=== PATIENT | male | born 1945 | race Caucasian/White ===

== ENCOUNTER 2017-08-30 06:26 | Day surgery (SDC) | payer MEDICARE ==
[2017-08-27 16:08] VITALS: BMI 31.1
--- NOTE | 2017-08-29 09:23 | HP ---
HISTORY AND PHYSICAL CHIEF COMPLAINT: Right shoulder pain. HISTORY OF PRESENT ILLNESS: The patient is a 72-year-old, left-hand dominant, retired gentleman who presents with progressive right shoulder pain, worsening over the past 6 months. He is having pain with overhead use and at night. He has tried injections, therapy, and medications with only partial temporary relief. He notes the pain limits his normal function and activities. PAST MEDICAL HISTORY: Significant for hypertension, arthritis, reflux disease, hypercholesterolemia. PAST SURGICAL HISTORY: Significant for left rotator cuff repair in addition to hernia repair. CURRENT MEDICATIONS: 1. Mobic. 2. Pravastatin. 3. Carvedilol. 4. Amlodipine. 5. Aspirin. 6. Hydrochlorothiazide. 7. Losartan. 8. Primidone. ALLERGIES: He denies drug allergies. FAMILY HISTORY: Negative. SOCIAL HISTORY: Negative for current tobacco or alcohol use. REVIEW OF SYSTEMS: Sixteen-point review of systems otherwise reviewed and is noncontributory. PHYSICAL EXAMINATION: On examination, the patient is approximately 6 feet tall, 225 pounds of endomorphic habitus. HEENT exam is nonfocal. Neck is supple. On examination of his right shoulder, he is tender about the anterior subacromial space. He has moderate subacromial crepitus. Active range of motion forward elevation 150 degrees, external rotation with arm to side 65 degrees, internal rotation to T11. Motor strength is 5/5 for abduction and external rotation. Impingement test, Neer test, and Speed test are positive. His distal neurovascular exam otherwise appears intact in the right upper extremity. MRI report from 06/14/2017 of the right shoulder shows a partial-thickness articular surface tear of the supraspinatus tendon. There is also significant bicipital tenosynovitis. IMPRESSION: 1. Right shoulder impingement with partial thickness rotator cuff tear. 2. Right shoulder bicipital tendinitis. RECOMMENDATIONS: I talked to the patient at length regarding his treatment options. At this point, he remains quite symptomatic despite conservative measures. After thorough discussion, he opts to proceed with surgery. We will plan to proceed with arthroscopic evaluation with probable subacromial decompression, rotator cuff debridement versus repair, and possible biceps tenotomy. We will also consider distal clavicular resection. We will likely perform that as an outpatient procedure. Risks and benefits were discussed at length in layman's terms. MMODL / IJN: [id number] /
[~2017-08-30 06:26] MED LIST: DEXAMETHASONE SOD PHOSPHATE 10 MG/ML 1 ML VIAL IV ONE; LACTATED RINGERS 1,000 ML IV SCH; MIDAZOLAM 2 MG/2 ML VIAL IV PRN; MORPHINE SULFATE 4 MG/ML SYRINGE IV PRN; ONDANSETRON 4 MG/2 ML VIAL IVP ONE; ceFAZolin IN SWFI 2 GM/20 ML SYRINGE IVP ONE
[2017-08-30] MEDS ORDERED: LIDOCAINE 1% 20 ML VIAL (10MG/ML) FOR IV START INTRADERMA ONE (07:22)
[2017-08-30] MEDS ORDERED: MIDAZOLAM 2 MG/2 ML VIAL ONE (08:00)
[2017-08-30] MEDS ORDERED: SUCCINYLCHOLINE CHLORIDE 100 MG/5 ML SYR IV ONE (08:00)
[2017-08-30] MEDS ORDERED: EPINEPHrine (PF) 1 ML in SODIUM CHLORIDE 0.9% IRRIGATIO 3,000 ML IRRIGATION ONE ×8 (08:00)
[2017-08-30] MEDS ORDERED: ROPIVACAINE 5 MG/ML 30 ML VIAL ONE (08:00)
[2017-08-30] MEDS ORDERED: PROPOFOL 10 MG/ML 20 ML VIAL IV ONE (08:00)
[2017-08-30] MEDS ORDERED: LIDOCAINE 1% INJ 10MG/ML (20 ML MDV) ONE (08:00)
[2017-08-30] MEDS ORDERED: PHENYLEPHRINE-0.9% NACL SYG 1 MG/10 ML SYRINGE ONE (08:00)
[2017-08-30] MEDS ORDERED: ePHEDrine SULFATE/0.9% NACL/PF 50 MG/5 ML SYRINGE IV ONE (08:00)
[2017-08-30] MEDS ORDERED: fentaNYL (PF) 50 MCG/ML 2 ML AMP ONE (08:00)
[2017-08-30] MEDS ORDERED: LIDOCAINE 2%-EPI 1:100,000 20 ML VIAL ONE (08:00)
[2017-08-30] MEDS ORDERED: LACTATED RINGERS 1,000 ML IV ONE (09:25)
[2017-08-30 09:35] VITALS: TEMP 97.4
--- NOTE | 2017-08-30 09:36 | P.OP ---
Date of Procedure: 08/30/17 Preoperative Diagnosis: Right shoulder symptomatic rotator cuff tear Postoperative Diagnosis: 1.5 cm rotator cuff tear/high-grade partial-thickness tear long head of biceps/ grade 2 chondral injury posterior central humeral head/acromioclavicular joint osteoarthrosis Procedure(s) Performed: Right shoulder arthroscopic subacromial decompression/distal clavicular resection/biceps tenotomy/humeral head chondroplasty/rotator cuff repair Implants: Arthrex 4.75 mm were swivel lock anchor 1, 5.5 mm swivel lock anchor 1 Anesthesia: ANTONELLAA Surgeon: Americo Akers [place] Clerk #1: Kenneth Cardoza Estimated Blood Loss (ml): 10 Pathology: none sent Condition: stable Disposition: PACU Indications for Procedure: The patient is a 72-year-old male who presents with progressive right shoulder pain after previous injury despite conservative measures. A discussion of the risks and benefits of operative intervention versus continued conservative measures was made with the patient. He opted to proceed with surgery. Operative risks to include infection, neurovascular injury, development of blood clots, possible tendon rerupture, possible postoperative stiffness and need for subsequent procedures was discussed. Informed consent was obtained. Operative Findings: As below Description of Procedure: The patient was brought to the operating room, and after induction of general anesthesia was placed in a beachchair position. The bony prominences were appropriately padded. I examined the right shoulder. There was no gross block to passive motion. There was no gross clinical humeral instability. The right upper extremity was prepped and draped in a normal fashion. The bony outlines of the acromion, distal clavicle, and coracoid process were outlined with a skin marker. The glenohumeral joint was inflated with 50 mL of saline utilizing a spinal needle from posterior approach. A posterior portal was made through a 5 mm skin incision 1 cm medial and inferior to the posterior lateral border the acromion. A blunt trocar was used to easily into the joint. Diagnostic arthroscopy arthroscopy was performed. An anterior portal was made in the joint above the subscapularis just lateral to the coracoid process. The subscapularis tendon appear to be intact. The anterior labrum was intact. There was significant hyperemia and partial thickness tearing of the intra- articular portion of the long head of the biceps. It was elected to proceed with tenotomy at this point. The was released from the superior labrum with electrocautery and lateral retract to the bicipital groove. A grade 2 chondral injury was noted involving the central posterior portion of the humeral head measuring 6 x 7 mm. A loose chondral flap was debrided back to stable base with a motorized shaver. The posterior labrum was intact. The inferior recess was inspected. The rotator cuff was inspected on the articular surface. A high -grade partial-thickness tear involving the anterior aspect of the supraspinatus tendon was noted. This was debrided with a motorized shaver. This was converted to a full-thickness tear. The posterior portion the cuff appeared to be intact. The arthroscope was then placed into the subacromial space. A lateral portal was made through a 5 mm skin incision 2 cm inferior to the anterior lateral border of the acromion. The soft tissue on the undersurface the acromion was debrided with a motorized shaver and with electrocautery clearly defining the anterior medial and lateral borders as well as the distal clavicle. An anterior inferior acromioplasty was performed with a motorized craig starting anterolateral, then extending this posteriorly, then extending this medially. I was able to convert to a flat acromion. This was verified from the posterior and lateral viewing portals. The coracoacromial ligament was detached from the anterior acromion with electrocautery. The distal 5 mm of the clavicle was resected with a motorized craig. Attention was then paid towards the rotator cuff. The 1.5 cm supraspinatus tear was noted with minimal retraction. This is easily mobilized back to the greater tuberosity. Greater tuberosity was lightly decorticated with a motorized craig down to a bleeding bony surface. An accessory superior lateral portals made through a 5 mm skin incision just off the lateral edge of the acromion. A starting hole was made with the appropriate all and a 4.75 mm swivel lock anchor preloaded with #2 fiber tape was placed. Good purchase was obtained. The #2 fiber tape was then passed through the rotator cuff utilizing a scorpion suture passer. The 2 limbs were then brought laterally to create a lateral row and a 5.5 mm swivel lock anchor was inserted. The rotator cuff was appropriately tensioned. Final arthroscopic view showed adequate compression of the footprint and repair. The arthroscope was then removed. The portals were closed with simple nylon suture. A sterile dressing was applied in addition to an abductor brace. The patient was awoken from general anesthesia and transferred to recovery room in good condition. Blood loss was estimated at 10 mL. No complications were incurred. Sponge and needle counts were correct at the end of the case.
[2017-08-30 09:41] VITALS: RESP 16
[2017-08-30] MEDS ORDERED: HYDROmorphone 0.5 MG/0.5 ML SYRINGE IVP ONE (09:52)
[2017-08-30] MEDS ORDERED: HYDROcodone/APAP 5-325MG 1 EACH TAB PO ONE (10:42)
[2017-08-30 11:34] VITALS: BP 139/68; PULSE 77
== END 2017-08-30 12:16 | disposition home or self-care (01) ==
LOC: OR 06:26
PROVIDERS: ATTEND Orthopaedic Surgery
DX: M75.101 Unspecified rotator cuff tear or rupture of right shoulder, not specified as traumatic (principal); S46.111A Strain of muscle, fascia and tendon of long head of biceps, right arm, initial encounter; X58.XXXA Exposure to other specified factors, initial encounter; M24.111 Other articular cartilage disorders, right shoulder; M15.9 Polyosteoarthritis, unspecified; M75.41 Impingement syndrome of right shoulder; M75.21 Bicipital tendinitis, right shoulder; I10 Essential (primary) hypertension; E78.00 Pure hypercholesterolemia, unspecified; E78.5 Hyperlipidemia, unspecified; R73.9 Hyperglycemia, unspecified; R25.1 Tremor, unspecified; K21.9 Gastro-esophageal reflux disease without esophagitis; N40.0 Benign prostatic hyperplasia without lower urinary tract symptoms; R00.1 Bradycardia, unspecified; R60.9 Edema, unspecified; Z79.82 Long term (current) use of aspirin; Z79.1 Long term (current) use of non-steroidal anti-inflammatories (NSAID); Z79.899 Other long term (current) drug therapy; Z87.891 Personal history of nicotine dependence
CPT/HCPCS: 64415; 84132; 29827; 29826; 29824; C1713 ×3; J2250; J1100; J2405; J0171; J2001; J3010; J2795; J2370; J0330; J2704; J1170; J0690

== ENCOUNTER → 2018-01-23 | Outpatient (CLI) | payer MEDICARE ==
--- NOTE | 2018-01-23 16:29 | MR ---
EXAMINATION TYPE: MR lumbar spine wo con DATE OF EXAM: 01/23/2018 COMPARISON: Plain film 05/25/2015 HISTORY: Lower Back Pain, Pain in Left Leg TECHNIQUE: Multiplanar, multisequence images of the lumbar spine were acquired. L1-L2: Facet arthropathy encroaches on the lateral recesses. No significant foraminal encroachment or central stenosis. Broad-based posterior disc bulge causes mild anterior mass effect on the thecal sa c. L2-L3: Posterior broad-based disc bulge causes anterior mass effect on the thecal sac. Facet arthropa thy with hypertrophy ligamentum flavum encroaches on the lateral recesses. Only minimal central canal stenosis. No significant foraminal encroachment. L3-L4: Posterior broad-based disc bulge causes anterior mass effect on the thecal sac. Facet arthropa thy with hypertrophy ligamentum flavum encroaches on the lateral recesses. No significant foraminal e ncroachment or central stenosis. L4-L5: Listhesis contributes with facet arthropathy and hypertrophy ligamentum flavum, minimal fast food cook ior broad-based disc bulge to cause a trefoil appearance of the thecal sac and some encroachment on t he foramina. L5-S1: Small posterior disc bulge may contact the proximal S1 nerve roots. No significant central jordana nosis or foraminal encroachment. There is mild facet arthropathy. Lumbar segments are intact. No paraspinal masses are identified. Conus medullaris has a normal appe arance. Minimal anterolisthesis grade 1 L4-5. There is multilevel endplate marrow signal change with spondylosis, there is loss of disc height and signal especially L4-5, L2-3 greater than L3-4. Tarlov cyst noted over the sacrum. IMPRESSION: Multilevel degenerative disc disease, facet arthropathy, there is a listhesis L4-5 as described.
== END | disposition home or self-care (01) ==
LOC: RADMRIMAIN 15:11
PROVIDERS: ATTEND Physical Medicine & Rehabilitation
DX: M51.27 Other intervertebral disc displacement, lumbosacral region (principal); M43.16 Spondylolisthesis, lumbar region; M51.36 Other intervertebral disc degeneration, lumbar region; M47.816 Spondylosis without myelopathy or radiculopathy, lumbar region; M46.97 Unspecified inflammatory spondylopathy, lumbosacral region
CPT/HCPCS: 72148

== ENCOUNTER 2020-07-25 10:48 | Day surgery (SDC) | payer MEDICARE ==
[2020-07-20 11:37] VITALS: BMI 29.8
[~2020-07-25 10:48] MED LIST changes: -DEXAMETHASONE SOD PHOSPHATE 10 MG/ML 1 ML VIAL IV ONE; +LIDOCAINE 1% (10MG/ML) FOR IV START INTRADERMA PRN; -MIDAZOLAM 2 MG/2 ML VIAL IV PRN; -MORPHINE SULFATE 4 MG/ML SYRINGE IV PRN; -ONDANSETRON 4 MG/2 ML VIAL IVP ONE; -ceFAZolin IN SWFI 2 GM/20 ML SYRINGE IVP ONE
[2020-07-25 11:14] VITALS: RESP 16; TEMP 98.5
[2020-07-25] MEDS ORDERED: fentaNYL (PF) 50 MCG/ML 2 ML AMP ONE (12:00)
[2020-07-25] MEDS ORDERED: PROPOFOL 10 MG/ML 20 ML VIAL IV ONE (12:00)
[2020-07-25] MEDS ORDERED: MIDAZOLAM 2 MG/2 ML VIAL ONE (12:00)
[2020-07-25 12:55] LABS: Anisocytosis Slight; HGB 13.1 gm/dL (13.0-17.5); Hypochromasia Slight; MCHC 31.9 g/dL (31.0-37.0); MCV 78.4 fL (80.0-100.0); Mean Platelet Volume 9.6; Microcytosis Slight; Platelet Count 694 k/uL (150-450); RBC 5.23 m/uL (4.30-5.90); RDW 16.1 % (11.5-15.5); Reticulocyte % 1.3 % (0.5-2.0); WBC 13.6 k/uL (3.8-10.6)
[2020-07-25 13:12] VITALS: BP 125/64; PULSE 58
[2020-07-25 13:59] LABS: Basophils # (M) 0.54 k/uL (0-0.2); Eosinophils # (M) 1.36 k/uL (0-0.7); Lymphocytes # (M) 3.13 k/uL (1.0-4.8); Monocytes # (M) 0.68 k/uL (0-1.0); Neutrophils # (M) 7.89 k/uL (1.3-7.7); Neutrophils % (M) 58 %; Nucleated Red Blood Cells 0 /100 WBC (0-0); Total Cells Counted 100
[2020-07-25 14:00] LABS: Large Platelets Present; Toxic Granulation Present
--- NOTE | 2020-07-25 15:22 | OP ---
OPERATIVE REPORT DATE OF SERVICE: 07/25/2020 PROCEDURE: Bone marrow aspirate and biopsy. INDICATION: Suspect polycythemia vera. PROCEDURE DESCRIPTION: After obtaining consent from the patient, the procedure was performed in the endoscopy suite under general anesthesia performed by the anesthesia team. The patient was put in the left lateral decubitus position. The right posterior superior iliac crest was localized. Skin was prepped with ChloraPrep. All sterile procedures were followed. Two mL of 2% xylocaine was used for local anesthetic. Monoject needles was inserted. About 10 mL aspirate and a 1 cm core biopsy was obtained without any difficulties. There was blood loss. The patient tolerated the procedure very well, without any immediate complications. MMODL / IJN: [id number] /
== END 2020-07-25 13:27 | disposition home or self-care (01) ==
LOC: OR 10:48
PROVIDERS: ATTEND Internal Medicine Hematology & Oncology
DX: D47.3 Essential (hemorrhagic) thrombocythemia (principal); D72.19 Other eosinophilia; D72.829 Elevated white blood cell count, unspecified; I10 Essential (primary) hypertension; R25.1 Tremor, unspecified; E78.5 Hyperlipidemia, unspecified; M19.90 Unspecified osteoarthritis, unspecified site; Z98.890 Other specified postprocedural states; Z87.891 Personal history of nicotine dependence; Q61.01 Congenital single renal cyst; K21.9 Gastro-esophageal reflux disease without esophagitis; Z79.82 Long term (current) use of aspirin; Z79.891 Long term (current) use of opiate analgesic; Z79.899 Other long term (current) drug therapy; Z97.2 Presence of dental prosthetic device (complete) (partial)
CPT/HCPCS: 85025; 85045; 38222; J2250; J3010; J2704

== ENCOUNTER → 2020-12-29 | Outpatient (CLI) | payer MEDICARE ==
--- NOTE | 2020-12-29 14:26 | XR ---
EXAMINATION TYPE: XR Hip LT and AP Pelvis DATE OF EXAM: 12/29/2020 COMPARISON: NONE HISTORY: Fall x2 months with the left SI pain TECHNIQUE: A single AP view of the pelvis is obtained. Two views of the left hip are obtained. FINDINGS: Lower lumbar spine and left sacroiliac hardware are seen. Degenerative changes are noted in the bones . IMPRESSION: There is no acute fracture or dislocation in the pelvis or left hip.
== END | disposition home or self-care (01) ==
LOC: RADXRMAIN 13:14
PROVIDERS: ATTEND Neurological Surgery
DX: M53.3 Sacrococcygeal disorders, not elsewhere classified (principal); W19.XXXA Unspecified fall, initial encounter
CPT/HCPCS: 73502

== ENCOUNTER → 2021-12-28 | Outpatient (CLI) | payer MEDICARE ==
--- NOTE | 2021-12-28 14:25 | XR ---
EXAMINATION TYPE: XR knee complete RT DATE OF EXAM: 12/28/2021 COMPARISON: None HISTORY: Injury TECHNIQUE: 3 view right knee FINDINGS: Mild narrowing of the medial and lateral compartment joint spaces. No joint effusion. Poste rior superior patellar spurring is present. Follow up exams can be performed 7-10 days from acute trauma for continued pain. IMPRESSION: 1. No acute osseous abnormality.
== END | disposition home or self-care (01) ==
LOC: RADXRMAIN 13:52
PROVIDERS: ATTEND Nurse Practitioner Gerontology
DX: S89.91XA Unspecified injury of right lower leg, initial encounter (principal)

== ENCOUNTER → 2022-07-27 | Outpatient (CLI) | payer MEDICARE ==
--- NOTE | 2022-07-27 10:38 | US ---
EXAMINATION TYPE: US venous doppler duplex LE DATE OF EXAM: 07/27/2022 10:20 AM COMPARISON: NONE CLINICAL HISTORY: R60.0 EDEMA. No hx blood clots. On aspirin. Patient states his ankles swell in the morning. No redness. SIDE PERFORMED: Bilateral TECHNIQUE: The lower extremity deep venous system is examined utilizing real time linear array sonog sabine with graded compression, doppler sonography and color-flow sonography. VESSELS IMAGED: Common Femoral Vein Deep Femoral Vein Greater Saphenous Vein * Femoral Vein Popliteal Vein Small Saphenous Vein * Proximal Calf Veins (* superficial vessels) Grayscale, color doppler, spectral doppler imaging performed of the deep veins of the lower extremiti es. There is normal flow, compressibility, vascular waveforms. Right Leg: Negative for DVT Left Leg: Negative for DVT IMPRESSION: No evidence for deep venous thrombosis of the bilateral lower extremities.
== END | disposition home or self-care (01) ==
LOC: RADUSWWP 09:34
PROVIDERS: ATTEND Internal Medicine
DX: R60.0 Localized edema (principal)
CPT/HCPCS: 93970

== ENCOUNTER → 2023-03-20 | Outpatient (CLI) | payer MEDICARE ==
[2023-03-20 13:45] VITALS: BP 129/76; PULSE 60; RESP 16; TEMP 98
--- NOTE | 2023-03-20 15:36 | P.PAINPG ---
PQRS Measure Charge Sheet Comment: HISTORY OF PRESENT ILLNESS: 77 yr old male w at side as a referral from Dr Hodgson presents today w severe and chronic LBP x 4 yrs secondary to post laminectomy syndrome for evaluation. Pt states pain level is provoked at 6/10 in intensity, constant, localized in the mid to lower lumbar spine, sharp in character w shooting pain towards the BL thighs. Pain is provoked by stnading from a sitting position. Pain is alleviated by use of a cane for ambulatory assistance, medications ([place], Neurontin), topical, heat, PT x 8 wks in Aug 2022, physician guided home stretches every morning since Aug 2022, repositioning and rest. Oswestry axial pain score at 14. PMH: OA, HTN, Hyperlipidemia, GERD, DM II, RLS PSH: L4-L5 spacers (2019), SH: . Negative x3 FH: Mo- OA All: See list Meds: See list REVIEW OF ORGAN SYSTEMS: CONSTITUTIONAL: No fevers or chills. No recent weight loss. NEUROLOGICAL: + numbness and tingling along the distal extremities. No seizure disorders or headaches. MUSCULOSKELETAL: + pain PSYCHIATRIC: Denies current depression or suicidal thoughts. Physical Examinations : Constitutional : Cooperative , not in acute distress . Neurologic : Cranial nerve II to XII intact. No focal neurological deficits. Psychiatric : alert & oriented x 3. Matching mood & appropriate affect. Judgment & insight intact. Musculoskeletal : Cervical Spine Motor strength in the deltoid and biceps: Normal right side. Normal Left side Motor strength biceps and the wrist extensors: Normal right side . Normal left side Motor strength in the triceps muscle: Normal right side. Normal left side Deep tendon reflexes: Normal at the biceps. Normal at Brachioradialis. Normal at triceps Vertebral body tenderness to deep palpation over Cervical facet loading test: positive bilaterally Spurling test: positive bilaterally Neck distraction test: positive bilaterally Jason sign: positive bilaterally Lumbar spine Motor strength lower extremities ,thigh and legs 5/5 Right side , 5/5 Left side Deep tendon reflexes : Normal Knee Jerk. Normal Ankle Jerk Vertebral body tenderness over L3 Patel Test positive over L3-L4 Lumbar facet Loading Test: positive Right / positive Left Range of motion of the lumbar spine Flexion 30 degrees, extension 10 degrees Straight Leg Raise test: Left/ Right positive at degree Tapan test: positive right / positive left. Severe tenderness over the Sacroiliac joint on the Right / Left sides Gaenslen test: positive bilaterally Seated flexion test: positive bilaterally. Sacral spine : Severe tenderness over the Sacroiliac joint: right side / left side Range of motion: Flexion of the lumbar spine <60 degrees Range of motion: Extension of the lumbar spine <20 degrees Gaenslen's Test positive Robbi's Test positive Tapan test: positive right side / left side Thigh Thrust Test Sacral Thrust Test Imaging: CT without contrast lumbar spine from 11/08/22 reviewed Assessment/ Plan : Post laminectomy syndrome Recommendation of ALTA L3-L4 #1. May need a series of injections for optimal pain relief. Risks, benefits of procedure discussed and patient verbalized understanding. Admits to aspirin or anti- coagulant use or medical history of diabetes. Protocol for discontinuation/ continuation of medications chantale procedure discussed. Minimal anesthesia provided, if clinically indicated, consisting of Versed and Fentanyl. All questions answered. I have spent greater than 30 minutes on patient care today. Dr Vegas was available by phone for the evaluation of this patient. The time was used to review the medical records including relevant urine studies and Prescription history (MAPs), review of the available imaging, evaluation and examination of the patient, coordination of care with the medical staff and if applicable referring physicians, as well as creation of the medical record PQRS Narrative: Smoking Status Former smoker Home Medications: Ambulatory Orders Aspirin 81 mg PO HS 08/27/17 Pantoprazole Sodium 40 mg PO BID 08/27/17 Pravastatin Sodium [Pravachol] 20 mg PO DAILY 08/27/17 amLODIPine BESYLATE [Norvasc] 10 mg PO HS 08/27/17 carvediloL [Coreg] 25 mg PO BID 08/27/17 Carbidopa-Levodopa 25-100 mg [Sinemet 25-100] 1 each PO TID 07/20/20 DULoxetine HCL [Cymbalta] 30 mg PO DAILY 10/25/22 Dapagliflozin Propanediol [Farxiga] 5 mg PO DAILY 10/25/22 Gabapentin 300 mg PO BID 10/25/22 HYDROcodone/APAP 7.5-325MG [[place] 7.5-325] 1 tab PO BID 10/25/22 Hydroxyurea 500 mg PO DIRECTED 10/25/22 Hydroxyurea 500 mg PO DAILY 10/25/22 Valsartan/Hydrochlorothiazide [Valsartan-Hctz 320-25 mg Tab] 1 each PO DAILY 10/25/22 rOPINIRole HCL [Requip] 0.5 mg PO HS 10/25/22 Controlled Substance Measures - Controlled Substance Measures Is patient prescribed a controlled substance at discharge?: No
== END ==
LOC: PNWHC3 12:33
PROVIDERS: ATTEND Specialist
DX: M51.16 Intervertebral disc disorders with radiculopathy, lumbar region (principal); M96.1 Postlaminectomy syndrome, not elsewhere classified; M19.90 Unspecified osteoarthritis, unspecified site; I10 Essential (primary) hypertension; E78.5 Hyperlipidemia, unspecified; K21.9 Gastro-esophageal reflux disease without esophagitis; E11.9 Type 2 diabetes mellitus without complications; G25.81 Restless legs syndrome; G89.29 Other chronic pain; Z87.891 Personal history of nicotine dependence; Z79.82 Long term (current) use of aspirin; Z79.899 Other long term (current) drug therapy
CPT/HCPCS: 99211

== ENCOUNTER → 2023-04-24 | Outpatient (CLI) | payer MEDICARE ==
[2023-04-24 13:06] VITALS: BP 117/70; PULSE 61; RESP 16
--- NOTE | 2023-04-24 14:34 | P.PAINPG ---
PQRS Measure Charge Sheet Comment: HISTORY OF PRESENT ILLNESS: 77 yr old male w at side presents today w severe and chronic LBP x 4 yrs secondary to post laminectomy syndrome for evaluation s/p L paramedian ALTA L3-L4 #1. Pt states he experienced 50 % pain relief x 3 wks s/p procedure. Pt also states that he can stand/ walk for up to 15 min where prior to this procedure he could only do so for 3 minutes. Pt states pain level is provoked at 9/10 in intensity, constant, localized in the mid to lower lumbar spine, sharp in character w shooting pain towards the BL thighs. Pain is provoked by standing from a sitting position. Pain is alleviated by use of a cane for ambulatory assistance, medications ([place], Neurontin), topical, heat, PT x 8 wks in Aug 2022, physician guided home stretches every morning since Aug 2022, repositioning and rest. Oswestry axial pain score at 14. Interventional procedures include L paramedian ALTA L3-L4 x1 Medications include [place], Neurontin REVIEW OF ORGAN SYSTEMS: CONSTITUTIONAL: No fevers or chills. No recent weight loss. NEUROLOGICAL: + numbness and tingling along the distal extremities. No seizure disorders or headaches. MUSCULOSKELETAL: + pain PSYCHIATRIC: Denies current depression or suicidal th oughts. Physical Examinations : Constitutional : Cooperative , not in acute distress . Neurologic : Cranial nerve II to XII intact. No focal neurological deficits. Psychiatric : alert & oriented x 3. Matching mood & appropriate affect. Judgment & insight intact. Musculoskeletal : Cervical Spine Motor strength in the deltoid and biceps: Normal right side. Normal Left side Motor strength biceps and the wrist extensors: Normal right side . Normal left side Motor strength in the triceps muscle: Normal right side. Normal left side Deep tendon reflexes: Normal at the biceps. Normal at Brachioradialis. Normal at triceps Vertebral body tenderness to deep palpation over Cervical facet loading test: positive bilaterally Spurling test: positive bilaterally Neck distraction test: positive bilaterally Jason sign: positive bilaterally Lumbar spine Motor strength lower extremities ,thigh and legs 5/5 Right side , 5/5 Left side Deep tendon reflexes : Normal Knee Jerk. Normal Ankle Jerk Vertebral body tenderness L5 Patel Test positive Lumbar facet Loading Test: positive Right / positive Left Range of motion of the lumbar spine Flexion 30 degrees, extension 10 degrees Straight Leg Raise test: Left/ Right positive at <30 degrees Tapan test: positive right / positive left. Severe tenderness over the Sacroiliac joint on the Right / Left sides Gaenslen test: positive bilaterally Seated flexion test: positive bilaterally. Sacral spine : Severe tenderness over the Sacroiliac joint: right side / left side Range of motion: Flexion of the lumbar spine <60 degrees Range of motion: Extension of the lumbar spine <20 degrees Gaenslen's Test positive Robbi's Test positive Tapan test: positive right side / lef t side Thigh Thrust Test Sacral Thrust Test Imaging: CT without contrast lumbar spine from 11/08/22 reviewed Assessment/ Plan : Post laminectomy syndrome Recommendation of Caudal ALTA w Lysis. Valium 5mg #2 NR Use, side effects, adverse reactions, safe storage discussed. Pt acknowledged understanding. May need a series of injections for optimal pain relief. Risks, benefits of procedure discussed and patient verbalized understanding. Admits to aspirin or anti- coagulant use or medical history of diabetes. Protocol for discontinuation/ continuation of medications chantale procedure discussed. Minimal anesthesia provided, if clinically indicated, consisting of Versed and Fentanyl. All questions answered. I have spent greater than 30 minutes on patient care today. Dr Vegas was available by phone for the evaluation of this patient. The time was used to review the medical records including relevant urine studies and Prescription history (MAPs), review of the available imaging, evaluation and examination of the patient, coordination of care with the medical staff and if applicable referring physicians, as well as creation of the medical record PQRS Narrative: Smoking Status Former smoker Hx Alcohol Use (MH) Yes Home Medications: Ambulatory Orders Aspirin 81 mg PO HS 08/27/17 Pantoprazole Sodium 40 mg PO BID 08/27/17 Pravastatin Sodium [Pravachol] 40 mg PO DAILY 08/27/17 amLODIPine BESYLATE [Norvasc] 2.5 mg PO HS 08/27/17 carvediloL [Coreg] 25 mg PO BID 08/27/17 Carbidopa-Levodopa 25-100 mg [Sinemet 25-100] 1 each PO TID 07/20/20 DULoxetine HCL [Cymbalta] 30 mg PO DAILY 10/25/22 Dapagliflozin Propanediol [Farxiga] 5 mg PO DAILY 10/25/22 Gabapentin 300 mg PO BID 10/25/22 HYDROcodone/APAP 7.5-325MG [[place] 7.5-325] 1 tab PO BID 10/25/22 Hydroxyurea 500 mg PO DAILY 10/25/22 Hydroxyurea 500 mg PO MOWEFR 10/25/22 Valsartan/Hydrochlorothiazide [Valsartan-Hctz 320-25 mg Tab] 1 each PO DAILY 10/25/22 rOPINIRole HCL [Requip] 0.5 mg PO HS 10/25/22 Multivitamins, Thera [Multivitamin (formulary)] 1 tab PO DAILY 04/02/23 Turmeric (Unknown Dose) 1 tab PO DAILY 04/02/23 diazePAM [Valium] 5 mg PO Q24H PRN 1 Days #2 tab 04/24/23 Controlled Substance Measures - Controlled Substance Measures Is patient prescribed a controlled substance at discharge?: Yes When asked, does pt state using other controlled substances?: Yes If prescribed controlled substance>3 days was MAPS reviewed?: Prescribed <3 Days
== END ==
LOC: PNWHC3 12:06
PROVIDERS: ATTEND Specialist
DX: M96.1 Postlaminectomy syndrome, not elsewhere classified (principal); Z87.891 Personal history of nicotine dependence; Z79.82 Long term (current) use of aspirin
CPT/HCPCS: 99211

== ENCOUNTER 2023-05-14 13:03 | Day surgery (SDC) | payer MEDICARE ==
[~2023-05-14 13:03] MED LIST changes: -LIDOCAINE 1% (10MG/ML) FOR IV START INTRADERMA PRN
[2023-05-14 13:31] LABS: Glucose,Whole Blood 154 mg/dL (70-110)
[2023-05-14 13:34] VITALS: RESP 16; TEMP 97.2
[2023-05-14] MEDS ORDERED: ROPIVACAINE 5MG/ML 20ML VIAL ONE (13:43)
[2023-05-14] MEDS ORDERED: IOPAMIDOL M200 10 ML VIAL ONE (13:43)
[2023-05-14] MEDS ORDERED: methylPREDNISolone ACETATE 40 MG/ML 1 ML VIAL ONE (13:43)
--- NOTE | 2023-05-14 13:55 | P.PCN ---
Date of Procedure: 05/14/23 Description of Procedure: PREOP DIAGNOSIS: Lumbar postlaminectomy syndrome POSTOP DIAGNOSIS: Lumbar postlaminectomy syndrome PROCEDURE: Caudal epidural steroid injection with epidurolysis and epidurogram under fluoroscopic guidance Imaging: Fluoroscopy was used, images where saved to the medical record ANESTHESIA: Local with 1% lidocaine 5 ml PROCEDURE INDICATION: The patient with post-laminectomy syndrome with low back pain and radiculopathy radiating down in both legs, here for a caudal epidural steroid injection with epidurolysis. PROCEDURE DESCRIPTION: The patient was seen and identified in the preoperative area. Risks, benefits, complications, and alternatives were discussed with the patient. The patient agreed to proceed with the procedure and signed the consent. IV was started, and vital signs were stable. Patient was taken to the OR and time out was completed. The patient was placed in the prone position on procedure table and a pillow was placed under the abdomen to reduce lumbar lordosis. The lumbosacral area was prepped and draped in the usual sterile fashion. Vital signs were closely monitored during the procedure. Lateral view and the anterior-posterior plates of the sacrum were identified with infiltration of the area overlying the sacral hiatus with 1% lidocaine. A 17 gauge epidural needle was used to advance through the sacral hiatus into the caudal epidural space. Omnipaque 180 dye 2cc was injected and the position of the needle was verified to be in the midline. A Racz catheter was introduced into the epidural space and was advanced towards the L5-S1 interspace under direct fluoroscopic guidance. Multiple passes were made with the catheter for lysis of epidural adhesions avoiding parasthesia and sig nificant resistance. After epidurolysis was complete, 2cc of contrast dye was again used to evaluate spread of contrast. Contrast was spreading beyond the original level prior to epidurolysis to the level of L3/4 after lysis. After negative aspiration, I injected a solution consisting of 40mg of Depo- Medrol, 2ml of Preservative free normal saline and 2ml of ropivacaine 0.5% for a total of 5ml. Additional spread was seen to L3/4 under fluoroscopy. The needle and the catheter were withdrawn intact. Epidurogram findings: Omnipaque 180 mg dye 2 ml was injected with spread of the dye into the caudal epidural space and with spread cutoff at L5 prior to epidurolysis. Post epidurolysis dye 2 ml was injected and spread was seen to Top of L3 COMPLICATIONS: None. DISPOSITION / PLANS: The patient was placed in a supine position and transferred to the recovery area in a stable condition for observation and was discharged from the recovery room after meeting discharge criteria. Home discharge instructions given to the patient by the staff. The patient was reexamined prior to discharge. The patient will schedule a follow up as directed
[2023-05-14 14:24] VITALS: BP 135/70; PULSE 65
--- NOTE | 2023-05-14 15:17 | FL ---
Intraoperative/procedural fluoroscopic services were provided pain management steroid injection. Tota l fluoroscopy time is 21.9 seconds with a total of 6 submitted images to PACS. Total DAP [id number] mGym 2. Please see the operative note for further details.
== END 2023-05-14 19:08 | disposition home or self-care (01) ==
LOC: ORPAIN 13:03
PROVIDERS: ATTEND Specialist
DX: M96.1 Postlaminectomy syndrome, not elsewhere classified (principal); Z79.82 Long term (current) use of aspirin
CPT/HCPCS: 62323; 62264; J1030; Q9966; J2795

== ENCOUNTER → 2023-06-13 | Outpatient (CLI) | payer MEDICARE ==
--- NOTE | 2023-06-13 15:39 | P.PAINPG ---
PQRS Measure Charge Sheet Comment: HISTORY OF PRESENT ILLNESS: 77 yr old male w at side presents today w severe and chronic LBP x 4 yrs secondary to post laminectomy syndrome for evaluation s/p Caudal ALTA w Lysis #1. Pt states he experienced 80% pain relief x 1 day s/p procedure. Pt states pain level is provoked at 7/10 in intensity, constant, localized in the mid to lower lumbar spine, predominantly axial, sharp in character w occasional shooting pain towards the BL thighs. Pain is provoked by standing from a sitting position. Pain is alleviated by use of a cane for ambulatory assistance, medications, topical, heat, PT x 8 wks in Aug 2022, physician guided home stretches every morning since Aug 2022, repositioning and rest. Oswestry axial pain score at 14. Interventional procedures include L paramedian ALTA L3-L4 x1, Caudal ALTA w Lysis x1 Medications include [place], Neurontin REVIEW OF ORGAN SYSTEMS: CONSTITUTIONAL: No fevers or chills. No recent weight loss. NEUROLOGICAL: + numbness and tingling along the distal extremities. No seizure disorders or headaches. MUSCULOSKELETAL: + pain PSYCHIATRIC: Denies current depression or suicidal thoughts. Physical Examinations : Constitutional : Cooperative , not in acute distress . Neurologic : Cranial nerve II to XII intact. No focal neurological deficits. Psychiatric : alert & oriented x 3. Matching mood & appropriate affect. Judgment & insight intact. Musculoskeletal : Cervical Spine Motor strength in the deltoid and biceps: Normal right side. Normal Left side Motor strength biceps and the wrist extensors: Normal right side . Normal left side Motor strength in the triceps muscle: Normal right side. Normal left side Deep tendon reflexes: Normal at the biceps. Normal at Brachioradialis. Normal at triceps Vertebral body tenderness to deep palpation over Cervical facet loading test: positive bilaterally Spurling test: positive bilaterally Neck distraction test: positive bilaterally Jason sign: positive bilaterally Lumbar spine Motor strength lower extremities ,thigh and legs 5/5 Right side , 5/5 Left side Deep tendon reflexes : Normal Knee Jerk. Normal Ankle Jerk Vertebral body tenderness Patel Test positive Lumbar facet Loading Test: positive Right / positive Left over L2-L3, L3-L4 Range of motion of the lumbar spine Flexion 30 degrees, extension 10 degrees Straight Leg Raise test: Left/ Right positive at <30 degrees Tapan test: positive right / positive left. Severe tenderness over the Sacroiliac joint on the Right / Left sides Gaenslen test: positive bilaterally Seated flexion test: positive bilaterally. Sacral spine : Severe tenderness over the Sacroiliac joint: right side / left side Range of motion: Flexion of the lumbar spine <60 degrees Range of motion: Extension of the lumbar spine <20 degrees Gaenslen's Test positive Robbi's Test positive Tapan test: positive right side / left side Thigh Thrust Test Sacral Thrust Test Imaging: CT without contrast lumbar spine from 11/08/22 reviewed Assessment/ Plan : Post laminectomy syndrome Recommendation of BL MBB L2-L3, L3-L4 #1. May need a series of injections, up until RFA, for optimal pain relief. Risks, benefits of procedure discussed and patient verbalized understanding. Admits to aspirin or anti- coagulant use or medical history of diabetes. Protocol for discontinuation/ continuation of medications chantale procedure discussed. Minimal anesthesia provided, if clinically indicated, consisting of Versed and Fentanyl. Mobic 7.5mg #30 w 1 RF. Use, side effects, adverse reactions and safe storage discussed. All questions answered. I have spent greater than 30 minutes on patient care today. Dr Vegas was available by phone for the evaluation of this patient. The time was used to review the medical records including relevant urine studies and Prescription history (MAPs), review of the available imaging, evaluation and examination of the patient, coordination of care with the medical staff and if applicable referring physicians, as well as creation of the medical record PQRS Narrative: Smoking Status Former smoker Hx Alcohol Use (MH) Yes Home Medications: Ambulatory Orders Aspirin 81 mg PO HS 08/27/17 Pantoprazole Sodium 40 mg PO BID 08/27/17 Pravastatin Sodium [Pravachol] 40 mg PO DAILY 08/27/17 amLODIPine BESYLATE [Norvasc] 2.5 mg PO DAILY 08/27/17 carvediloL [Coreg] 25 mg PO BID 08/27/17 Carbidopa-Levodopa 25-100 mg [Sinemet 25-100] 1 each PO TID 07/20/20 DULoxetine HCL [Cymbalta] 30 mg PO DAILY 10/25/22 Dapagliflozin Propanediol [Farxiga] 5 mg PO DAILY 10/25/22 Gabapentin 300 mg PO BID 10/25/22 HYDROcodone/APAP 7.5-325MG [[place] 7.5-325] 1 tab PO BID 10/25/22 Hydroxyurea 500 mg PO DAILY 10/25/22 Hydroxyurea 500 mg PO MOWEFR 10/25/22 Valsartan/Hydrochlorothiazide [Valsartan-Hctz 320-25 mg Tab] 1 each PO DAILY 10/25/22 rOPINIRole HCL [Requip] 0.5 mg PO HS 10/25/22 Multivitamins, Thera [Multivitamin (formulary)] 1 tab PO DAILY 04/02/23 Turmeric (Unknown Dose) 1 tab PO DAILY 04/02/23 diazePAM [Valium] 5 mg PO Q24H PRN 1 Days #2 tab 04/24/23 Unk Magnesium 200 mg PO DAILY 05/10/23 Controlled Substance Measures - Controlled Substance Measures Is patient prescribed a controlled substance at discharge?: No
[2023-06-13 16:13] VITALS: BP 109/70; PULSE 78; RESP 15; TEMP 98.6
== END ==
LOC: PNWHC3 13:31
PROVIDERS: ATTEND Specialist
DX: M47.816 Spondylosis without myelopathy or radiculopathy, lumbar region (principal); Z87.891 Personal history of nicotine dependence
CPT/HCPCS: 99211

== ENCOUNTER → 2023-06-27 | Day surgery (SDC) | payer MEDICARE ==
[2023-06-26 08:55] VITALS: BMI 30.4
[~2023-06-27] MED LIST changes: +IV FLUID CONTINUATION 575 ML IV ONE; +LIDOCAINE 1% (10MG/ML) FOR IV START INTRADERMA ONE; +MIDAZOLAM 2 MG/2 ML VIAL ONE; +ROPIVACAINE 5MG/ML 20ML VIAL ONE
[2023-06-27 10:04] VITALS: TEMP 98.3
[2023-06-27 10:18] LABS: Glucose,Whole Blood 148 mg/dL (70-110)
[2023-06-27 11:47] VITALS: BP 143/75; PULSE 67; RESP 18
--- NOTE | 2023-06-27 12:57 | P.PCN ---
Description of Procedure: Preprocedure diagnosis. 1. 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 2. Lumbar degenerative disc disease. Postprocedure diagnosis. As above. Procedure done. Bilateral diagnostic block with local anesthetics at L1,L2, L5 medial branch with fluoroscopic guidance (fluoroscopy images are available in the radiology department) target to the facet joint bilateral L2-3 and L5-S1 levels. Anesthesia. Related anesthesia care as per anesthesia department/ moderate sedation with intravenous Versed 2 mg and fentanyl and local infiltration with local anesthetics. Blood loss. Minimal. Indication. The patient has low back pain secondary to lumbar facet joint arthropathy. Discussed the procedure and alternative and complications which includes infection, bleeding, nerve damage, aggravation of pain. Patient understands and all questions were answered. Patient iunderstands that if any pain relief occurs it will last for a few hours to a few days maximum. Procedure description. After getting consent patient was taken in the OR in prone position. Back prepped with chlorhexidine and draped in sterile fashion. After injecting 5 mL of plain 1% lidocaine subcutaneously, a 22-gauge spinal needle was introduced under tunnel vision of the fluoroscope at the junction of the superior articular process with right ala of the sacrum. Because of the previous lumbar spine surgery of L4 5 fusion with titanium cage I did not have access to medial branch of L4 and L3. With slight right oblique fluoroscope, after injecting 5 mL of plain 1% lidocaine subcutaneously, a 22-gauge spinal needle was introduced under tunnel vision of the fluoroscope at the junction of the superior articular process with right L3 transverse process, junction of the superior articular process with the right L2 transverse process. After needle position confirmation by AP and crosstable lateral view, after negative aspi ration, half milliliters of 0.5% ropivacaine were injected at each point. In exactly same way, left sided injections were done at the following 3 points. Junction of the superior articular process with left ala of the sacrum, junction of the superior articular process with the left [id number] process, junction of the superior articular process with left L2 transverse process. Total 3 mL of 0.5% ropivacaine was injected. Spinal needles were taken out and bandages were applied. Disposition. Patient tolerated the procedure well. No complication. Discharged home in stable condition.
--- NOTE | 2023-06-27 15:19 | FL ---
EXAMINATION TYPE: FL guided pain mgmt statistic Intraoperative/procedural fluoroscopic services were provided. Total fluoroscopy time is 31 seconds with a total of 4 submitted images to PACS. Please see the operative/procedural note for further details. DAP: 0.63798 Gycm2
== END ==
LOC: ORPAIN 09:25
PROVIDERS: ATTEND Pain Medicine Interventional Pain Medicine
DX: M51.36 Other intervertebral disc degeneration, lumbar region (principal); M47.816 Spondylosis without myelopathy or radiculopathy, lumbar region; E11.9 Type 2 diabetes mellitus without complications; Z79.82 Long term (current) use of aspirin; Z79.1 Long term (current) use of non-steroidal anti-inflammatories (NSAID)
CPT/HCPCS: 64493; 64494 ×2; 99152; 99153; J2250; J2795

== ENCOUNTER → 2023-07-24 | Outpatient (CLI) | payer MEDICARE ==
[2023-07-24 14:35] VITALS: BP 124/72; PULSE 87; RESP 15; TEMP 97.6
--- NOTE | 2023-07-24 14:37 | P.PAINPG ---
PQRS Measure Charge Sheet Comment: HISTORY OF PRESENT ILLNESS: A 77 yr old male w at side presents today w severe and chronic LBP x 4 yrs secondary to post laminectomy syndrome for evaluation s/p BL MBB L2-L3, L5-S1 #1. Pt states he experienced 80% pain relief x 1 day s/p procedure. Pt states pain level is provoked at 7/10 in intensity, constant, localized in the mid to lower lumbar spine, predominantly axial, sharp in character w occasional shooting pain towards the BL thighs. Pain is provoked by standing from a sitting position. Pain is alleviated by injections, use of a cane for ambulatory assistance, medications, topical, heat, PT x 8 wks in Aug 2022, physician guided home stretches every morning since Aug 2022, repositioning and rest. Oswestry axial pain score at 14. Interventional procedures include L paramedian ALTA L3-L4 x1, Caudal ALTA w Lysis x1, BL MBB L2-L3/ L5-S1 x1 Medications include [place], Neurontin REVIEW OF ORGAN SYSTEMS: CONSTITUTIONAL: No fevers or chills. No recent weight loss. NEUROLOGICAL: + numbness and tingling along the distal extremities. No seizure disorders or headaches. MUSCULOSKELETAL: + pain PSYCHIATRIC: Denies current depression or suicidal thoughts. Physical Examinations : Constitutional : Cooperative , not in acute distress . Neurologic : Cranial nerve II to XII intact. No focal neurological deficits. Psychiatric : alert & oriented x 3. Matching mood & appropriate affect. Judgment & insight intact. Musculoskeletal : Cervical Spine Motor strength in the deltoid and biceps: Normal right side. Normal Left side Motor strength biceps and the wrist extensors: Normal right side . Normal left side Motor strength in the triceps muscle: Normal right side. Normal left side Deep tendon reflexes: Normal at the biceps. Normal at Brachioradialis. Normal at triceps Vertebral body tenderness to deep palpation over Cervical facet loading test: positive bilaterally Spurling test: positive bilaterally Neck distraction test: positive bilaterally Jason sign: positive bilaterally Lumbar spine Motor strength lower extremities ,thigh and legs 5/5 Right side , 5/5 Left side Deep tendon reflexes : Normal Knee Jerk. Normal Ankle Jerk Vertebral body tenderness Patel Test positive Lumbar facet Loading Test: positive Right / positive Left over L2-L3, L5-S1 Range of motion of the lumbar spine Flexion 30 degrees, extension 10 degrees Straight Leg Raise test: Left/ Right positive at <30 degrees Tapan test: positive right / positive left. Severe tenderness over the Sacroiliac joint on the Right / Left sides Gaenslen test: positive bilaterally Seated flexion test: positive bilaterally. Sacral spine : Severe tenderness over the Sacroiliac joint: right side / left side Range of motion: Flexion of the lumbar spine <60 degrees Range of motion: Extension of the lumbar spine <20 degrees Gaenslen's Test positive Robbi's Test positive Tapan test: positive right side / left side Thigh Thrust Test Sacral Thrust Test Imaging: CT without contrast lumbar spine from 11/08/22 reviewed Assessment/ Plan : Post laminectomy syndrome Recommendation of BL MBB L2-L3, L5-S1 #2. May need a series of injections, up until RFA, for optimal pain relief. Risks, benefits of procedure discussed and patient verbalized understanding. Admits to aspirin or anti- coagulant use or medical history of diabetes. Protocol for discontinuation/ continuation of medications chantale procedure discussed. Minimal anesthesia provided, if clinically indicated, consisting of Versed and Fentanyl. All questions answered. I have spent greater than 30 minutes on patient care today. Dr Vegas was available by phone for the evaluation of this patient. The time was used to review the medical records including relevant urine studies and Prescription history (MAPs), review of the available imaging, evaluation and examination of the patient, coordination of care with the medical staff and if applicable referring physicians, as well as creation of the medical record PQRS Narrative: Smoking Status Former smoker Hx Alcohol Use (MH) Yes Home Medications: Ambulatory Orders Aspirin 81 mg PO HS 08/27/17 Pantoprazole Sodium 40 mg PO BID 08/27/17 Pravastatin Sodium [Pravachol] 40 mg PO DAILY 08/27/17 amLODIPine BESYLATE [Norvasc] 2.5 mg PO DAILY 08/27/17 carvediloL [Coreg] 25 mg PO BID 08/27/17 Carbidopa-Levodopa 25-100 mg [Sinemet 25-100] 1 each PO TID 07/20/20 DULoxetine HCL [Cymbalta] 30 mg PO DAILY 10/25/22 Dapagliflozin Propanediol [Farxiga] 5 mg PO DAILY 10/25/22 Gabapentin 300 mg PO BID 10/25/22 HYDROcodone/APAP 7.5-325MG [[place] 7.5-325] 1 tab PO BID 10/25/22 Hydroxyurea 500 mg PO DAILY 10/25/22 Valsartan/Hydrochlorothiazide [Valsartan-Hctz 320-25 mg Tab] 1 each PO DAILY 10/25/22 rOPINIRole HCL [Requip] 0.5 mg PO HS 10/25/22 Multivitamins, Thera [Multivitamin (formulary)] 1 tab PO DAILY 04/02/23 Meloxicam [Mobic] 7.5 mg PO DAILY 30 Days #30 tab 06/13/23 Controlled Substance Measures - Controlled Substance Measures Is patient prescribed a controlled substance at discharge?: No
== END ==
LOC: PNWHC3 14:00
PROVIDERS: ATTEND Specialist
DX: M96.1 Postlaminectomy syndrome, not elsewhere classified (principal); Z87.891 Personal history of nicotine dependence; Z79.82 Long term (current) use of aspirin
CPT/HCPCS: 99211

== ENCOUNTER 2023-09-20 11:32 | Day surgery (SDC) | payer MEDICARE ==
[2023-09-17 12:23] VITALS: BMI 29.8
[2023-09-20] MEDS: LACTATED RINGERS 1,000 ML IV SCH (12:17)
[2023-09-20] MEDS ORDERED: fentaNYL (PF) 50 MCG/ML 2 ML AMP ONE (12:22)
[2023-09-20] MEDS ORDERED: MIDAZOLAM 2 MG/2 ML VIAL ONE (12:22)
[2023-09-20] MEDS ORDERED: ROPIVACAINE 5MG/ML 20ML VIAL ONE (12:26)
[2023-09-20 12:34] VITALS: RESP 16; TEMP 97.6
--- NOTE | 2023-09-20 12:43 | P.PCN ---
Date of Procedure: 09/20/23 Procedure(s) Performed: Preprocedure diagnosis. 1. 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 2. Lumbar degenerative disc disease. Postprocedure diagnosis. As above. Procedure done. Bilateral diagnostic block with local anesthetics at L1,L2, L5 medial branch with fluoroscopic guidance (fluoroscopy images are available in the radiology department) target to the facet joint bilateral L2-3 and L5-S1 levels.#2nd Anesthesia= monitered anesthesia care as per anesthesia department. Blood loss. Minimal. Indication. The patient has low back pain secondary to lumbar facet joint arthropathy. Discussed the procedure and alternative and complications which includes infection, bleeding, nerve damage, aggravation of pain. Patient understands and all questions were answered. Patient iunderstands that if any pain relief occurs it will last for a few hours to a few days maximum. Procedure description. After getting consent patient was taken in the OR in prone position. Back prepped with chlorhexidine and draped in sterile fashion. After injecting 5 mL of plain 1% lidocaine subcutaneously, a 22-gauge spinal needle was introduced under tunnel vision of the fluoroscope at the junction of the superior articular process with right ala of the sacrum. Because of the previous lumbar spine surgery of L4 5 fusion with titanium cage I did not have access to medial branch of L4 and L3. With slight right oblique fluoroscope, after injecting 3 mL of plain 1% lidocaine subcutaneously, a 22-gauge spinal needle was introduced under tunnel vision of the fluoroscope at the junction of the superior articular process with right L3 transverse process, junction of the superior articular process with the right L2 transverse process. After needle position confirmation by AP and crosstable lateral view, after negative aspiration, half milliliters of 0.5% ropivacaine were injected at each point. In exactly same way, left sided injections were done at the following 3 points. Junction of the superior articular process with left ala of the sacrum, junction of the superior articular process with the left L3 transverse process, junction of the superior articular process with left L2 transverse process. Total 3 mL of 0.5% ropivacaine was injected. Spinal needles were taken out and bandages were applied. Disposition. Patient tolerated the procedure well. No complication. Discharged home in stable condition.
[2023-09-20] MEDS: IV FLUID CONTINUATION 1,000 ML IV ONE (12:45)
[2023-09-20 13:10] VITALS: BP 143/79; PULSE 74
--- NOTE | 2023-09-20 17:15 | FL ---
EXAMINATION TYPE: FL guided pain mgmt statistic Intraoperative/procedural fluoroscopic services were provided. Total fluoroscopy time is 26.1 seconds with a total of 6 submitted images to PACS. Please s ee the operative/procedural note for further details. DAP: [id number] mGym2
== END 2023-09-20 13:34 | disposition home or self-care (01) ==
LOC: ORPAIN 11:32
PROVIDERS: ATTEND Specialist
DX: M47.816 Spondylosis without myelopathy or radiculopathy, lumbar region (principal); M51.36 Other intervertebral disc degeneration, lumbar region; I10 Essential (primary) hypertension; E78.5 Hyperlipidemia, unspecified; K21.9 Gastro-esophageal reflux disease without esophagitis; E85.89 Other amyloidosis; Z79.899 Other long term (current) drug therapy
CPT/HCPCS: 64493; 64494 ×2; J2250; J3010; J2795

== ENCOUNTER → 2023-10-03 | Outpatient (CLI) | payer MEDICARE ==
--- NOTE | 2023-10-03 14:27 | P.PAINPG ---
PQRS Measure Charge Sheet Comment: HISTORY OF PRESENT ILLNESS: A 77 yr old male w at side presents today w severe and chronic LBP x 4 yrs secondary to post laminectomy syndrome for evaluation s/p BL MBB L2-L3, L5-S1 #2. Pt states he experienced 90 % pain relief x 1 day s/p procedure. Pt states pain level is provoked at 7/10 in intensity, constant, localized in the mid to lower lumbar spine, predominantly axial, sharp in character w occasional shooting pain towards the BL thighs. Pain is provoked by standing from a sitting position. Pain is alleviated by injections, use of a cane for ambulatory assistance, medications, topical, heat, PT x 8 wks in Aug 2022, physician guided home stretches every morning since Aug 2022, repositioning and rest. Oswestry axial pain score at 13. Interventional procedures include L paramedian ALTA L3-L4 x1, Caudal ALTA w Lysis x1, BL MBB L2-L3/ L5-S1 x2 Medications include Devers, Neurontin REVIEW OF ORGAN SYSTEMS: CONSTITUTIONAL: No fevers or chills. No recent weight loss. NEUROLOGICAL: + numbness and tingling along the distal extremities. No seizure disorders or headaches. MUSCULOSKELETAL: + pain PSYCHIATRIC: Denies current depression or suicidal thoughts. Physical Examinations : Constitutional : Cooperative , not in acute distress . Neurologic : Cranial nerve II to XII intact. No focal neurological deficits. Psychiatric : alert & oriented x 3. Matching mood & appropriate affect. Judgment & insight intact. Musculoskeletal : Cervical Spine Motor strength in the deltoid and biceps: Normal right side. Normal Left side Motor strength biceps and the wrist extensors: Normal right side . Normal left side Motor strength in the triceps muscle: Normal right side. Normal left side Deep tendon reflexes: Normal at the biceps. Normal at Brachioradialis. Normal at triceps Vertebral body tenderness to deep palpation over Cervical facet loading test: positive bilaterally Spurling test: positive bilaterally Neck distraction test: positive bilaterally Jason sign: positive bilaterally Lumbar spine Motor strength lower extremities ,thigh and legs 5/5 Right side , 5/5 Left side Deep tendon reflexes : Normal Knee Jerk. Normal Ankle Jerk Vertebral body tenderness Patel Test positive Lumbar facet Loading Test: positive Right / positive Left over L2-L3, L5-S1 Range of motion of the lumbar spine Flexion 30 degrees, extension 10 degrees Straight Leg Raise test: Left/ Right positive at <30 degrees Tapan test: positive right / positive left. Severe tenderness over the Sacroiliac joint on the Right / Left sides Gaenslen test: positive bilaterally Seated flexion test: positive bilaterally. Sacral spine : Severe tenderness over the Sacroiliac joint: right side / left side Range of motion: Flexion of the lumbar spine <60 degrees Range of motion: Extension of the lumbar spine <20 degrees Gaenslen's Test positive Robbi's Test positive Tapan test: positive right side / left side Thigh Thrust Test Sacral Thrust Test Imaging: CT without contrast lumbar spine from 11/08/22 reviewed Assessment/ Plan : Post laminectomy syndrome Recommendation of BL RFA L2-L3, L5-S1 . Exhibited optimal pain relief w prior BL MBB procedures. Risks, benefits of procedure discussed and patient verbalized understanding. Admits to aspirin or anti- coagulant use or medical history of diabetes. Protocol for discontinuation/ continuation of medications chantale procedure discussed. Minimal anesthesia provided, if clinically indicated, consisting of Versed and Fentanyl. All questions answered. I have spent greater than 30 minutes on patient care today. Dr Vegas was available by phone for the evaluation of this patient. The time was used to review the medical records including relevant urine studies and Prescription history (MAPs), review of the available imaging, evaluation and examination of the patient, coordination of care with the medical staff and if applicable referring physicians, as well as creation of the medical record PQRS Narrative: Smoking Status Former smoker Hx Alcohol Use (MH) Yes Home Medications: Ambulatory Orders Aspirin 81 mg PO HS 08/27/17 Pantoprazole Sodium 40 mg PO BID 08/27/17 Pravastatin Sodium [Pravachol] 40 mg PO DAILY 08/27/17 amLODIPine BESYLATE [Norvasc] 2.5 mg PO DAILY 08/27/17 carvediloL [Coreg] 25 mg PO BID 08/27/17 Carbidopa-Levodopa 25-100 mg [Sinemet 25-100] 1 each PO TID 07/20/20 DULoxetine HCL [Cymbalta] 30 mg PO DAILY 10/25/22 Dapagliflozin Propanediol [Farxiga] 10 mg PO DAILY 10/25/22 Gabapentin 300 mg PO BID 10/25/22 HYDROcodone/APAP 7.5-325MG [Devers 7.5-325] 1 tab PO BID 04/20/23 Hydroxyurea 500 mg PO QAM 10/25/22 Valsartan/Hydrochlorothiazide [Valsartan-Hctz 320-25 mg Tab] 1 each PO SUTUTHSA@0800 10/25/22 rOPINIRole HCL [Requip] 0.5 mg PO HS 10/25/22 Multivitamins, Thera [Multivitamin (formulary)] 1 tab PO DAILY 04/02/23 Turmeric Root Extract [Turmeric] 500 mg PO DAILY 09/17/23 Valsartan/Hydrochlorothiazide [Valsartan-Hctz 320-25 mg Tab] 1 each PO MOWEFR@0800,2200 09/17/23 Controlled Substance Measures - Controlled Substance Measures Is patient prescribed a controlled substance at discharge?: No
[2023-10-03 14:52] VITALS: BP 128/62; PULSE 75; RESP 15; TEMP 98.4
== END ==
LOC: PNWHC3 14:02
PROVIDERS: ATTEND Specialist
DX: M96.1 Postlaminectomy syndrome, not elsewhere classified (principal); Z87.891 Personal history of nicotine dependence
CPT/HCPCS: 99211

== ENCOUNTER 2023-10-25 11:03 | Day surgery (SDC) | payer MEDICARE ==
[2023-10-22 16:03] VITALS: BMI 29.7
[2023-10-25] MEDS: LACTATED RINGERS 1,000 ML IV SCH (11:29)
[2023-10-25 11:41] LABS: Glucose,Whole Blood 158 mg/dL (70-110)
[2023-10-25] MEDS ORDERED: MIDAZOLAM 2 MG/2 ML VIAL ONE (11:42)
[2023-10-25] MEDS ORDERED: fentaNYL (PF) 50 MCG/ML 2 ML AMP ONE (11:42)
[2023-10-25] MEDS ORDERED: ROPIVACAINE 5MG/ML 20ML VIAL ONE (11:46)
[2023-10-25] MEDS ORDERED: TRIAMCINOLONE ACETONIDE 40 MG/ML 1 ML VIAL ONE (11:46)
[2023-10-25 12:11] VITALS: TEMP 97
[2023-10-25] MEDS: IV FLUID CONTINUATION 1,000 ML IV ONE (12:20)
--- NOTE | 2023-10-25 12:23 | P.PCN ---
Date of Procedure: 10/25/23 Surgeon: Nery Nelson Pathology: none sent Condition: stable Disposition: PACU Description of Procedure: PREOPERATIVE DIAGNOSIS: Lumbar spondylosis without myelopathy POSTOPERATIVE DIAGNOSIS: Lumbar spondylosis without myelopathy PROCEDURES : Bilateral Radiofrequency thermocoagulation on the L1, L2 on the dorsal ramus of L5 under fluoroscopic guidance ANESTHESIA: Local with lidocaine 1% using 25-gauge needle and IV moderate conscious sedation by the anesthesia Department Physician: Nery Nelson MD EBL: Minimal PROCEDURE INDICATION: The patient with low back pain secondary to lumbar facet arthropathy who had significant relief of pain with previous diagnostic lumbar medial branch block with Ropivacaine0.5%. PROCEDURE DESCRIPTION / TECHNIQUE: The patient was seen and identified in the preoperative area. Risks, benefits, complications, including but not limited to risk of infection ,bleeding , allergic reactions to the medications and no complete pain relief , and alternatives were discussed with the patient, the patient agreed to proceed with the procedure and signed the consent. IV was started. Vital signs remained stable throughout the procedure. Patient was taken to the OR and time out was completed. The patient was placed in the prone position on the procedure table. The lumber area was prepped and draped in the usual sterile fashion. . Vital signs were closely monitored during the procedure .IV sedation was used during the procedure to decrease patients anxiety. The patient had previous back surgery with hardware at the L3 4 and L4 5 levels.The target points were identified as follows: For the L5-S1 level which corresponds to the dorsal ramus of L5 the target point was at the superior medial aspect of the sacral ala on the Rt side of the spine on the AP view of fluoroscopy and for the L1, and L2 medial branches the target points were at the connection between the transverse process and the superior articular process of L2, and L3 vertebra respectively on the Rt oblique view of fluoroscopy. skin was marked, and localized with 1% lidocaineat these points. Subsequently, an 18 [id number] radiofrequency needles with a 10-mm curved active tips were advanced guided by fluoroscopy to each of the target points mentioned above in a superior medial direction to get the active tips as parallel as possible to the medial branches tracks. AP, oblique, and lateral views of fluoroscopy were used to verify needle tips position. Each level then underwent motor testing at 2.5 Hz and 0 to 3 volt with local stimulation, but no radicular symptoms down the legs. I then injected 1 mL of lidocaine 1% in each needle before starting radiofrequency thermocoagulation at 80 degrees celsius for 90 seconds. After that I injected 1 ml of PF Ropivacaine 0.5%(3 mls) with 40 mg of Kenalog, 1 mL of this mixture was given in each needle before taking the needles out intact. Then the left side with the same levels was done in the same manner. At the end of the procedure, the skin was cleansed and bandages were applied. A copy of needle placement fluoroscopy was saved on the C-arm machine. COMPLICATIONS: No acute complications. DISPOSITION / PLANS: The patient was placed in a supine position and transferred to the recovery area in a stable condition for observation and was discharged from the recovery room after meeting discharge criteria. Home discharge instructions given to the patient by the staff. The patient was reexamined prior to discharge. The patient will schedule a follow up in the clinic in 2-4 weeks.
--- NOTE | 2023-10-25 12:45 | FL ---
Fluoroscopy INDICATION: Pain FINDINGS: Fluoroscopy time: 32.2 seconds. Total dose area product (DAP) in uGy*m?, mGy*cm? (or similar): 0.04535 Images obtained: 9. IMPRESSION: 1. Documentation of fluoroscopy.
[2023-10-25 12:55] VITALS: BP 130/65; PULSE 65; RESP 16
== END 2023-10-25 13:00 | disposition home or self-care (01) ==
LOC: ORPAIN 11:03
PROVIDERS: ATTEND Anesthesiology
DX: M47.816 Spondylosis without myelopathy or radiculopathy, lumbar region (principal); I10 Essential (primary) hypertension; E78.5 Hyperlipidemia, unspecified; I71.9 Aortic aneurysm of unspecified site, without rupture; K21.9 Gastro-esophageal reflux disease without esophagitis; Z79.82 Long term (current) use of aspirin; Z79.01 Long term (current) use of anticoagulants; Z79.899 Other long term (current) drug therapy
CPT/HCPCS: 64635; 64636 ×2; 99152; 99153; J2250; J3301; J3010; J2795

== ENCOUNTER → 2023-11-18 | Outpatient (CLI) | payer MEDICARE ==
[2023-11-18 13:30] VITALS: BP 132/85; PULSE 58; RESP 16
--- NOTE | 2023-11-18 14:57 | P.PAINPG ---
PQRS Measure Charge Sheet Comment: HISTORY OF PRESENT ILLNESS: A 77 yr old male w at side presents today w severe and chronic LBP x 4 yrs secondary to post laminectomy syndrome for evaluation s/p BL RFA L2-L3, L5-S1. Pt states he experienced 70 % pain relief s/p procedure. Pt states pain level is provoked at 3 /10 in intensity, constant, localized in the mid to lower lumbar spine, predominantly axial, sharp in character w occasional shooting pain towards the BL thighs. Pain is provoked by standing from a sitting position. Pain is alleviated by injections, use of a cane for ambulatory assistance, medications, topical, heat, PT x 8 wks in Aug 2022, physician guided home stretches every morning since Aug 2022, repositioning and rest. Oswestry axial pain score at 10. Interventional procedures include L paramedian ALTA L3-L4 x1, Caudal ALTA w Lysis x1, BL RFA L2-L3/ L5-S1 (Oct) Medications include [place], Neurontin REVIEW OF ORGAN SYSTEMS: CONSTITUTIONAL: No fevers or chills. No recent weight loss. NEUROLOGICAL: + numbness and tingling along the distal extremities. No seizure disorders or headaches. MUSCULOSKELETAL: + pain PSYCHIATRIC: Denies current depression or suicidal thoughts. Physical Examinations : Constitutional : Cooperative , not in acute distress . Neurologic : Cranial nerve II to XII intact. No focal neurological deficits. Psychiatric : alert & oriented x 3. Matching mood & appropriate affect. Judgment & insight intact. Musculoskeletal : Cervical Spine Motor strength in the deltoid and biceps: Normal right side. Normal Left side Motor strength biceps and the wrist extensors: Normal right side . Normal left side Motor strength in the triceps muscle: Normal right side. Normal left side Deep tendon reflexes: Normal at the biceps. Normal at Brachioradialis. Normal at triceps Vertebral body tenderness to deep palpation over Cervical facet loading test: positive bilaterally Spurling test: positive bilaterally Neck distraction test: positive bilaterally Jason sign: positive bilaterally Lumbar spine Motor strength lower extremities ,thigh and legs 5/5 Right side , 5/5 Left side Deep tendon reflexes : Normal Knee Jerk. Normal Ankle Jerk Vertebral body tenderness Patel Test positive Lumbar facet Loading Test: positive Right / positive Left over L2-L3, L5-S1 Range of motion of the lumbar spine Flexion 30 degrees, extension 10 degrees Straight Leg Raise test: Left/ Right positive at <30 degrees Tapan test: positive right / positive left. Severe tenderness over the Sacroiliac joint on the Right / Left sides Gaenslen test: positive bilaterally Seated flexion test: positive bilaterally. Sacral spine : Severe tenderness over the Sacroiliac joint: right side / left side Range of motion: Flexion of the lumbar spine <60 degrees Range of motion: Extension of the lumbar spine <20 degrees Gaenslen's Test positive Robbi's Test positive Tapan test: positive right side / left side Thigh Thrust Test Sacral Thrust Test Imaging: CT without contrast lumbar spine from 11/08/22 reviewed Assessment/ Plan : Post laminectomy syndrome Will manage residual pain and may RTC on an as needed basis. All questions answered. I have spent greater than 30 minutes on patient care today. Dr Vegas was available by phone for the evaluation of this patient. The time was used to review the medical records including relevant urine studies and Prescription history (MAPs), review of the available imaging, evaluation and examination of the patient, coordination of care with the medical staff and if applicable referring physicians, as well as creation of the medical record PQRS Narrative: Smoking Status Former smoker Hx Alcohol Use (MH) Yes Home Medications: Ambulatory Orders Aspirin 81 mg PO HS 08/27/17 Pantoprazole Sodium 40 mg PO BID 08/27/17 amLODIPine BESYLATE [Norvasc] 2.5 mg PO DAILY 08/27/17 carvediloL [Coreg] 25 mg PO BID 08/27/17 Carbidopa-Levodopa 25-100 mg [Sinemet 25-100] 1 each PO TID 07/20/20 DULoxetine HCL [Cymbalta] 30 mg PO DAILY 10/25/22 Gabapentin 300 mg PO BID 10/25/22 HYDROcodone/APAP 7.5-325MG [Bolivar 7.5-325] 1 tab PO BID PRN 10/25/22 Hydroxyurea 500 mg PO QAM 10/25/22 rOPINIRole HCL [Requip] 0.5 mg PO HS 10/25/22 Valsartan/Hydrochlorothiazide [Valsartan-Hctz 320-25 mg Tab] 1 each PO DAILY 09/17/23 Atorvastatin [Lipitor] 40 mg PO HS 10/22/23 Dapagliflozin Propanediol [Farxiga] 10 mg PO DAILY 10/22/23 Hydroxyurea 500 mg PO MOWEFR 10/22/23 Controlled Substance Measures - Controlled Substance Measures Is patient prescribed a controlled substance at discharge?: No
== END ==
LOC: PNWHC3 12:30
PROVIDERS: ATTEND Specialist
DX: M96.1 Postlaminectomy syndrome, not elsewhere classified (principal); Z87.891 Personal history of nicotine dependence
CPT/HCPCS: 99211

== ENCOUNTER → 2024-03-02 | Outpatient (CLI) | payer MEDICARE | END | disposition home or self-care (01) | LOC: LABPAT 14:24 | PROVIDERS: ATTEND Orthopaedic Surgery | DX: Z01.812 Encounter for preprocedural laboratory examination (principal); M17.11 Unilateral primary osteoarthritis, right knee; Z22.322 Carrier or suspected carrier of Methicillin resistant Staphylococcus aureus | CPT/HCPCS: 87070 ==

== ENCOUNTER 2024-04-20 08:10 | Day surgery (SDC) | payer MEDICARE ==
[2024-04-14 11:29] VITALS: BMI 28.3
--- NOTE | 2024-04-19 12:11 | HP ---
HISTORY AND PHYSICAL DATE OF SURGERY: 04/20/2024. HISTORY OF PRESENT ILLNESS: Juan M Espinal is a patient seen with symptomatic right knee osteoarthritis. We discussed options regarding treatment. He elected to proceed with right total knee arthroplasty. Consent was obtained. Medical clearance was provided by Dr. Paul, cardiac clearance by Dr. Genao. PAST MEDICAL HISTORY: Hypertension, hyperlipidemia, cardiovascular disease. PAST SURGICAL HISTORY: Herniorrhaphy, rotator cuff repair. MEDICATIONS: 1. Daily aspirin. 2. Pantoprazole. 3. Carvedilol. 4. Amlodipine. 5. Pravastatin. 6. Valsartan. ALLERGIES: None. SOCIAL HISTORY: Denies tobacco use. PHYSICAL EVALUATION OF THE RIGHT KNEE: Range of motion is -2 to 115 degrees. Tenderness along the medial joint line. Crepitus, medial patellofemoral compartment with range of motion. Pain with patellofemoral compression. Ligaments stable. Hip rotation is without pain. Distal neurovascular exam is intact. IMAGING STUDIES: Radiographs of the right knee reveal severe osteoarthritic changes. IMPRESSION: 1. Right knee osteoarthritis. 2. Hypertension. 3. Hyperlipidemia. 4. Cardiovascular disease. PLAN: Right total knee arthroplasty. MMODL / IJN: [id number] /
[~2024-04-20 08:10] MED LIST changes: +HYDROmorphone 0.5 MG/0.5 ML SYRINGE IVP PRN; -IV FLUID CONTINUATION 575 ML IV ONE; -LACTATED RINGERS 1,000 ML IV SCH; -LIDOCAINE 1% (10MG/ML) FOR IV START INTRADERMA ONE; +LIDOCAINE 1% (10MG/ML) FOR IV START INTRADERMA PRN; -MIDAZOLAM 2 MG/2 ML VIAL ONE; -ROPIVACAINE 5MG/ML 20ML VIAL ONE; +TRANEXAMIC 1,000 MG/100ML-NACL 1,000 MG in SALINE 1 100ML.BAG IVPB PRN; +fentaNYL (PF) 50 MCG/ML 2 ML AMP IVP PRN
[2024-04-20] MEDS: IV FLUID CONTINUATION 1,000 ML IV ONE ×2 (08:42)
[2024-04-20 08:56] LABS: Glucose,Whole Blood 124 mg/dL (70-110)
[2024-04-20] MEDS: LACTATED RINGERS 1,000 ML IV SCH (09:07)
[2024-04-20] MEDS: ACETAMINOPHEN TAB 500 MG TAB PO PRN (09:08)
[2024-04-20] MEDS: ONDANSETRON 4 MG/2 ML VIAL IVP ONE (09:08)
[2024-04-20] MEDS: MELOXICAM 7.5 MG TAB PO PRN (09:08)
[2024-04-20] MEDS: DEXAMETHASONE SOD PHOSPHATE 4 MG/ML 1 ML VIAL IV ONE (09:08)
[2024-04-20] MEDS: MIDAZOLAM 2 MG/2 ML VIAL IV PRN (09:32)
[2024-04-20] MEDS ORDERED: TRANEXAMIC 1,000 MG/100ML-NACL PREMIX BAG ONE (10:04)
[2024-04-20] MEDS ORDERED: MIDAZOLAM 2 MG/2 ML VIAL ONE (10:04)
[2024-04-20] MEDS ORDERED: PROPOFOL 10 MG/ML 20 ML VIAL IV ONE (10:04)
[2024-04-20] MEDS ORDERED: DEXAMETHASONE SOD PHOSPHATE 4 MG/ML 1 ML VIAL ONE (10:04)
[2024-04-20] MEDS ORDERED: ROPIVACAINE 5 MG/ML 30 ML VIAL ONE (10:04)
[2024-04-20] MEDS ORDERED: fentaNYL (PF) 50 MCG/ML 2 ML AMP ONE (10:04)
[2024-04-20] MEDS: ceFAZolin 1,000 MG in SODIUM CHLORIDE 0.9% 1,000 ML IRRIGATION ONE (10:30)
[2024-04-20] MEDS ORDERED: ONDANSETRON 4 MG/2 ML VIAL IVP PRN (11:41)
[2024-04-20] MEDS ORDERED: HYDROmorphone 0.5 MG/0.5 ML SYRINGE IVP PRN ×2 (11:41)
[2024-04-20] MEDS ORDERED: NALOXONE 0.4 MG/ML 1 ML VIAL IV PRN (11:41)
--- NOTE | 2024-04-20 11:41 | P.OP ---
Date of Procedure: 04/20/24 Preoperative Diagnosis: Right knee osteoarthritis Postoperative Diagnosis: Right knee osteoarthritis Procedure(s) Performed: Right total knee arthroplasty Implants: 1. DePuy attune size 6 right cruciate retaining cemented femur 2. DePuy attune size 6 fixed-bearing cemented tibial baseplate 3. DePuy attune size 6 fixed-bearing cruciate retaining 10 mm polyethylene tibial insert 4. DePuy attune 41 mm all polyethylene cemented patella Anesthesia: regional (Adductor canal catheter, iPAQ block), spinal Surgeon: Sonny Hager Auto [employer] Mechanic #1: Kenneth Cardoza Estimated Blood Loss (ml): 35 Pathology: none sent Condition: stable Disposition: PACU Indications for Procedure: 78-year-old gentleman seen with symptomatic right knee osteoarthritis. After having treatment options discussed, he elected to proceed with right total knee arthroplasty. Operative Findings: See description of procedure Description of Procedure: Patient was taken to the operative suite after having an adductor canal catheter placed by the department of anesthesia. Patient underwent a spinal anesthetic by the department of anesthesia. Patient was given preoperative IV intake antibiotics and TXA. A well-padded tourniquet was placed about the right lower extremity. The lower extremity was then prepped and draped in the normal sterile orthopedic fashion. The extremity was elevated, a tourniquet was insufflated to 300. A standard anterior incision was made sharply through skin. Dissection was taken down through the subcutaneous soft tissues down to the extensor mechanism. A medial arthrotomy was performed, patella was everted and knee was flexed. There was advanced osteoarthritis noted. I introduced my distal intramedullary femoral drill. I then introduced the distal femoral cutting jig. Manoj MIRANDA secured the cutting jig with 2 pins. I held retractors in position while Manoj MIRANDA performed the distal femoral resection through the guide area we now removed her distal femoral cutting guide. We now placed our 4-in-1 femoral cutting block and positioned and it was secured with 2 pins by Manoj MIRANDA while I held the block in position. The distal femoral finishing was now completed. A proximal tibial cutting guide was positioned. I held the guide in the appropriate position with both hands well Manoj MIRANDA inserted stabilizing pins into the guide. Proximal tibial cut was made. We now placed a trial femoral component into position, along with an appropriate size tibial tray and insert. We now took the knee through range of motion and had full extension good flexion and good overall soft tissue balance noted. The patella was everted and stabilized with 2 towel clips held by Manoj MIRANDA while I performed a flush with patellar quad tendon utilizing a fresh sawblade. We templated the patella, appropriate drill holes were made. An appropriate trial patella was positioned, knee was taken through full range of motion with the patella tracking very nicely. The trial patella was removed. Drill holes were made through the femoral component. All trial components were removed after marking off the appropriate rotation of the tibia. Retractors were now positioned along the proximal tibia. An appropriate keel punch was made with the appropriate size tibial guide by myself on Manoj MIRANDA assisted by holding retractors. At this point appropriate size implants were chosen and opened. The joint was irrigated copiously with pulse lavage mechanical irrigation. The wound was irrigated with pulse lavage mechanical irrigation. We mixed antibiotic methylmethacrylate. We placed the knee into flexion. We placed multiple retractors assisted by Manoj MIRANDA to expose the proximal tibia. Once the methyl methacrylate was ready, the tibial component was cemented into place removing any excess methylmethacrylate form by both myself and Manoj MIRANDA. The femoral component was cemented into place removing the removing any excess methylmethacrylate performed by both myself and Manoj MIRANDA. We then inserted the appropriate size polyethylene tibial insert. We made sure that it was locked into position. We took the knee into full extension, and then back in a flexion making sure we had removed any excess methylmethacrylate. The patellar component was then cemented down and secured with clamp. Excess methylmethacrylate removed. We kept the knee in full extension, patellar clamp in position until methylmethacrylate had hardened. Once it had hardened the patellar clamp was removed. The knee was taken through full range of motion. The patella tracked nicely. There was good soft tissue balancing. The tourniquet was now released. Additional hemostasis was achieved via electrocautery. A second gram of TXA was given. The wound again was irrigated with pulse lavage mechanical irrigation. The extensor mechanism was repaired with Ethibond suture. We checked the repair with range of motion and it was stable. The subcutaneous soft tissues were repaired with Vicryl in layers. The skin was approximated with pernio/Dermabond. Sterile dressings were applied followed by loose web roll and Campos bandage. The patient was transferred to a bed, and taken to recovery in stable and satisfactory condition. Manoj MIRANDA assisted with this complex procedure.
[2024-04-20] MEDS: LACTATED RINGERS 1,000 ML IV ONE (12:02)
[2024-04-20] MEDS: ROPIVACAINE 1,100 MG, SODIUM CHLORIDE 0.9% 500 ML 330 ML, EMPTY PAIN BALL 1 EACH MISCELLANE PRN (12:37)
--- NOTE | 2024-04-20 12:50 | XR ---
EXAMINATION TYPE: XR knee limited RT DATE OF EXAM: 04/20/2024 12:27 PM CLINICAL INDICATION: Male, 78 years old with history of Evaluation for Postop abnormality and alignme nt; [facility] COMPARISON: None. TECHNIQUE: XR knee limited RT; examined in Frontal, lateral projections. FINDINGS: Status post total knee arthroplasty changes with hardware in appropriate alignment and in tact. No evidence of fracture. Subcutaneous lucencies and lucencies within the joint consistent with surgical changes. IMPRESSION: Status post total knee arthroplasty changes with hardware intact and appropriate alignment. No fractu res identified. [facility], , 04/20/2024 12:48 PM
[2024-04-20] MEDS: HYDROmorphone 0.5 MG/0.5 ML SYRINGE IVP PRN (13:56)
--- NOTE | 2024-04-20 15:29 | P.ANPRN ---
Procedure Note - Anesthesia - Nerve Block Performed Right Adductor Canal Infusion Time Out Performed: Yes Date of Procedure: 04/20/24 Procedure Start Time: Procedure Stop Time: Location of Patient: PreOp Indication: Acute Post-Operative Pain, Requested by Surgeon Sedation Type: Sedate with meaningful contact maintained Preparation: Sterile Prep, Sterile Dressing Position: Supine Catheter: Indwelling Needle Types: Pajunk Needle Gauge: 21 Ultrasound used to visualize needle placement: Yes Ultrasound used to observe medication spread: Yes Blood Aspirated: No Pain Paresthesia on Injection Noted: No Resistance on Injection: Normal Image Stored and Saved: Yes Events: Uneventful and Well Tolerated (Ropivacaine 0.5% 20 cc plus dexamethasone 4 mg)
--- NOTE | 2024-04-20 15:30 | P.ANPRN ---
Procedure Note - Anesthesia - Nerve Block Performed Right Rogeliock Single Time Out Performed: Yes Date of Procedure: 04/20/24 Procedure Start Time: : Procedure Stop Time: : Location of Patient: PreOp Indication: Acute Post-Operative Pain, Requested by Surgeon Sedation Type: Sedate with meaningful contact maintained Preparation: Sterile Prep Position: Supine Needle Types: Pajunk Needle Gauge: 21 Ultrasound used to visualize needle placement: Yes Ultrasound used to observe medication spread: Yes Blood Aspirated: No Pain Paresthesia on Injection Noted: No Resistance on Injection: Normal Image Stored and Saved: Yes Events: Uneventful and Well Tolerated (Ropivacaine 0.5% 25 cc plus dexamethasone 4 mg)
[2024-04-20] MEDS: HYDROcodone/APAP 5-325MG 1 EACH TAB PO PRN (15:37)
[2024-04-20] MEDS: SODIUM CHLORIDE 0.9% 1,000 ML IV SCH (20:13)
[2024-04-20] MEDS: SENNOSIDES-DOCUSATE SODIUM 1 EACH TAB PO SCH (20:15)
[2024-04-20] MEDS: ASPIRIN 325 MG TAB PO SCH (20:15)
[2024-04-20] MEDS: carvediloL 12.5 MG TAB PO SCH (20:15)
[2024-04-20] MEDS: PANTOPRAZOLE 40 MG TABLET PO SCH (20:15)
[2024-04-20] MEDS: PRAVASTATIN SODIUM 40 MG TAB PO SCH (20:15)
[2024-04-20] MEDS: GABAPENTIN 300 MG CAP PO SCH (20:15)
[2024-04-20 20:27] LABS: Glucose,Whole Blood 203 mg/dL (70-110)
[2024-04-20] MEDS: CARBIDOPA-LEVODOPA 25-100 MG 1 EACH TAB PO SCH (21:24)
[2024-04-20] MEDS: HYDROcodone/APAP 7.5-325MG 1 EACH TAB PO PRN (21:24)
[2024-04-20] MEDS: INSULIN ASPART (NovoLOG) 100 UNIT/ML VIAL SQ SCH (21:24)
[2024-04-21 03:02] VITALS: TEMP 98.1
[2024-04-21 06:29] LABS: Glucose,Whole Blood 145 mg/dL (70-110)
--- NOTE | 2024-04-21 08:33 | P.PN ---
Progress Note - Text Adequate analgesia. No complication from anesthesia.
[2024-04-21] MEDS: DULoxetine HCL 30 MG CAPSULE.DR PO SCH (08:34)
[2024-04-21] MEDS: amLODIPine 2.5 MG TAB PO SCH (08:34)
[2024-04-21] MEDS: DAPAGLIFLOZIN PROPANEDIOL 10 MG TABLET PO SCH (08:34)
[2024-04-21] MEDS: VALSARTAN 160 MG TAB PO SCH (08:34)
[2024-04-21] MEDS: hydroCHLOROthiazide 25 MG TAB PO SCH (08:34)
[2024-04-21] MEDS: MULTIVITAMINS, THERA 1 EACH TAB PO SCH (08:34)
[2024-04-21] MEDS ORDERED: LYCOPENE PO SCH (09:00)
[2024-04-21] MEDS ORDERED: MULTIVIT MINERALS PO SCH (09:00)
[2024-04-21] MEDS ORDERED: [UNRECOGNIZED DRUG - OTHER] PO SCH (09:00)
[2024-04-21 09:25] LABS: HCT 47.5 % (39.6-50.0); HGB 15.4 g/dL (13.0-17.0); MCH 34.2 pg (27.0-32.0); MCHC 32.4 g/dL (32.0-37.0); MCV 105.6 FL (80.0-97.0); Mean Platelet Volume 11.3 FL (9.5-12.2); NRBC Per 100 WBC 0.02 X 10*3/uL (0.00-0.01); Platelet Count 300 X 10*3/uL (140-440); RDW 16.9 % (11.5-14.5); WBC 15.76 X 10*3/uL (4.50-10.00)
[2024-04-21 09:27] LABS: ALT 17 U/L (10-49); AST 31 U/L (14-35); Albumin 3.9 g/dL (3.8-4.9); Albumin/Globulin Ratio 1.56 Ratio (1.60-3.17); Alkaline Phosphatase 91 U/L (41-126); Blood Urea Nitrogen 21.2 mg/dL (9.0-27.0); Calcium 8.7 mg/dL (8.7-10.3); Chloride 100 mmol/L (96-109); Globulin 2.5 g/dL (1.6-3.3); Glucose 164 mg/dL (70-110); Potassium 3.9 mmol/L (3.5-5.5); Sodium 140 mmol/L (135-145); Total Bilirubin 0.4 mg/dL (0.3-1.2); Total Protein 6.4 g/dL (6.2-8.2)
[2024-04-21] MEDS: HYDROXYUREA 500 MG CAP PO SCH (09:48)
[2024-04-21 09:57] LABS: Basophils # (A) 0.03 X 10*3/uL (0.00-0.10); Basophils % (A) 0.2 %; Eosinophils # (A) 0 X 10*3/uL (0.04-0.35); Eosinophils % (A) 0 %; Lymphocytes # (A) 1.13 X 10*3/uL (0.90-5.00); Lymphocytes % (A) 7.2 %; Macrocytosis (M) 2+; Monocytes # (A) 1.49 X 10*3/uL (0.20-1.00); Monocytes % (A) 9.5 %; Neutrophils # (A) 12.97 X 10*3/uL (1.80-7.70); Neutrophils % (A) 82.2 %
[2024-04-21 10:13] VITALS: BP 149/87; PULSE 80
[2024-04-21 10:49] VITALS: RESP 18
[2024-04-21 12:05] LABS: Glucose,Whole Blood 169 mg/dL (70-110)
--- NOTE | 2024-04-21 12:11 | P.PN ---
Subjective Progress Note Date: 04/21/24 Principal diagnosis: Status post right total knee arthroplasty Patient is progressing well at this time, he is continue to ambulate with the assistance of a walker. Patient did very well with physical therapy. His pain is well-controlled. Denies headaches, lightheadedness, chest pain or shortness of breath Objective - Vital Signs Vital signs: Vital Signs Temp 98.1 F 04/21/24 07:15 Pulse 80 04/21/24 07:15 Resp 18 04/21/24 10:48 BP 149/87 04/21/24 07:15 Pulse Ox 97 04/21/24 08:14 FiO2 Intake & Output 04/20/24 04/21/24 04/21/24 18:59 06:59 18:59 Intake Total 1051 540 Output Total 35 Balance 1016 540 Weight 95.3 kg Intake: IV 1051 Oral 540 Output: Estimated Blood Loss 35 Other: Voiding Method Toilet Toilet # Voids 3 - Exam Right lower extremity: Incision is clean, dry, and intact. The foam dressing is in good condition. There is minimal soft tissue swelling and ecchymosis surrounding the medial and lateral aspects of the incision. Calf is soft, no tenderness with palpation. Plantar flexion, dorsiflexion, EHL, FHL are intact. Sensory exam to light touch throughout the extremity is intact, dorsal pedis pulses 2+. - Labs CBC & Chem 7: 04/21/24 02:32 04/21/24 02:32 Labs: Abnormal Lab Results - Last 24 Hours (Table) 04/20/24 04/21/24 04/21/24 Range/Units 20:26 02:32 02:32 WBC 15.76 H (4.50-10.00) X 10*3/uL MCV 105.6 H (80.0-97.0) FL MCH 34.2 H (27.0-32.0) pg RDW 16.9 H (11.5-14.5) % Immature Gran # 0.14 H (0.00-0.04) X 10*3/uL Neutrophils # 12.97 H (1.80-7.70) X 10*3/uL Monocytes # 1.49 H (0.20-1.00) X 10*3/uL Eosinophils # 0 L (0.04-0.35) X 10*3/uL NRBC/100 WBC Diff 0.02 H (0.00-0.01) X 10*3/uL Macrocytosis (manual) 2+ A Anion Gap 14.00 H (4.00-12.00) mmol/L BUN/Creatinine Ratio 21.20 H (12.00-20.00) Ratio Glucose 164 H (70-110) mg/dL POC Glucose (mg/dL) 203 H (70-110) mg/dL Albumin/Globulin Ratio 1.56 L (1.60-3.17) Ratio 04/21/24 04/21/24 Range/Units 06:28 12:04 WBC (4.50-10.00) X 10*3/uL MCV (80.0-97.0) FL MCH (27.0-32.0) pg RDW (11.5-14.5) % Immature Gran # (0.00-0.04) X 10*3/uL Neutrophils # (1.80-7.70) X 10*3/uL Monocytes # (0.20-1.00) X 10*3/uL Eosinophils # (0.04-0.35) X 10*3/uL NRBC/100 WBC Diff (0.00-0.01) X 10*3/uL Macrocytosis (manual) Anion Gap (4.00-12.00) mmol/L BUN/Creatinine Ratio (12.00-20.00) Ratio Glucose (70-110) mg/dL POC Glucose (mg/dL) 145 H 169 H (70-110) mg/dL Albumin/Globulin Ratio (1.60-3.17) Ratio Assessment and Plan Assessment: Postoperative day #1 status post right total knee arthroplasty Plan: Pain control, we will plan to increase [place] 7.5 mg / 325 mg to every 6 hours DVT prophylaxis, aspirin 81 mg twice a day for DVT prophylaxis Wound care instructions were discussed, this to include bandage removal and On-Q pain catheter Home PT/nursing after discharge Medical recommendations appreciated Discharge planning: Patient stable for discharge home today Time with Patient: Less than 30
--- NOTE | 2024-04-21 12:15 | P.DS ---
Providers Date of admission: 04/20/2024 Expected date of discharge: 04/21/24 Attending physician: Sonny Hager Consults: 04/20/24 11:41 Consult Physician Routine Consulting Provider: Estuardo Paul Consult Reason/Comments: Medical management Do you want consulting provider notified?: Yes Primary care physician: Estuardo Paul Hospital Course: Date of admission: 04/20/2024 Date of discharge: 04/21/2024 Admission diagnosis: Status post right total knee arthroplasty Discharge diagnosis: Same Attending physician: Dr. Hager Surgical procedures: Right total knee arthroplasty Brief history: Patient is a 78-year-old male with a history of progressive primary right knee osteoarthritis. At this point patient has failed conservative treatment measures and has opted to proceed with a elective right total knee arthroplasty. Hospital course: Details of patient's surgery can be found in operative report. Patient tolerated the procedure well and was subsequently transported to orthopedic floor. Patient's orthopeidc and medical care was provided daily. Patient had daily laboratory tests performed for evaluation of overall blood counts. Patient had daily physical therapy to include strengthening range of motion as well as education with walker ambulation. Patient was treated with aspirin for their postoperative DVT prophylaxis during their inpatient stay. Patient was noted to have a relatively uneventful postoperative course. Patient reported satisfactory pain control with oral pain medications by postoperative day 0. Patient showed satisfactory progress with physical therapy. Patient moved steadily through the program and had no difficulty meeting the goals by postoperative day 1. Given patient's otherwise satisfactory course and having met physical therapy goals, plan is to discharge patient home on postoperative day 1. Discharge condition/disposition: Patient will be discharged home in stable condition. Discharge medications: Instructions are given on resumption of patient's normal daily medications per primary care recommendation, in addition patient will be prescribed senna S. Discharge instructions: 1. Wound care and infection precautions, keep incision dry and covered while showering, no lotions, creams, moisturizers. No soaking, tubs, pools, hottubs. Do not scrub over the incision. 2. Weight-bear as tolerated with walker / cane until follow-up. 3. Ice and elevate when necessary. Do not exceed 20 minutes per hour with ice pack. 4. Utilize compression sleeve until seen at first follow up appointment. 5. Visiting nursing care. 6. Home physical therapy including home CPM. 7. Pain meds and anticoagulants per prescription. 8. Pain medication has potential to cause constipation. Increase oral fluid and fiber intake. Contact primary care provider if you have not had a bowel movement within 48 hours after discharge 9. No anti-inflammatory medication until discussed at first post operative visit, this including Motrin, Aleve, Mobic, Diclofenac. 10. Follow up in office at 2 weeks postop with Manoj Cardoza PA-C/Jules Neri 11. Follow up with your primary care doctor 7-10 days after discharge. 12. Contact [facility] with any questions, . Procedures: Right total knee arthroplasty Patient Condition at Discharge: Good Plan - Discharge Summary Discharge Rx Participant: No New Discharge Prescriptions: New HYDROcodone/APAP 7.5-325MG [[place] 7.5] 1 each PO Q6HR PRN #28 tab PRN Reason: Pain Aspirin [Adult Low Dose Aspirin EC] 81 mg PO BID #60 tab Sennosides/Docusate Sodium [Senna-S 8.6-50 mg Tablet] 2 each PO DAILY PRN #30 tablet PRN Reason: Constipation No Action Aspirin 81 mg PO HS Pantoprazole Sodium 40 mg PO BID amLODIPine BESYLATE [Norvasc] 2.5 mg PO DAILY carvediloL [Coreg] 25 mg PO BID Carbidopa-Levodopa 25-100 mg [Sinemet 25-100] 1 each PO TID Gabapentin 300 mg PO BID DULoxetine HCL [Cymbalta] 30 mg PO DAILY HYDROcodone/APAP 7.5-325MG [[place] 7.5-325] 1 tab PO BID PRN PRN Reason: Pain rOPINIRole HCL [Requip] 0.5 mg PO HS Hydroxyurea 500 mg PO MOWEFR Dapagliflozin Propanediol [Farxiga] 10 mg PO DAILY Pravastatin Sodium [Pravachol] 40 mg PO HS Hydroxyurea 500 mg PO QAM Valsartan/Hydrochlorothiazide [Valsartan-Hctz 320-25 mg Tab] 1 each PO DAILY Multivit-Minerals/FA/Lycopene [One-A-Day Men's 50 Plus Tablet] 1 each PO DAILY Tirzepatide [Mounjaro] 2.5 mg SQ MO Turmeric Root Extract [Turmeric] 500 mg PO HS Discharge Medication List Aspirin 81 mg PO HS 08/27/17 [History] Pantoprazole Sodium 40 mg PO BID 08/27/17 [History] amLODIPine BESYLATE [Norvasc] 2.5 mg PO DAILY 08/27/17 [History] carvediloL [Coreg] 25 mg PO BID 08/27/17 [History] Carbidopa-Levodopa 25-100 mg [Sinemet 25-100] 1 each PO TID 07/20/20 [History] DULoxetine HCL [Cymbalta] 30 mg PO DAILY 10/25/22 [History] Gabapentin 300 mg PO BID 10/25/22 [History] HYDROcodone/APAP 7.5-325MG [[place] 7.5-325] 1 tab PO BID PRN 10/25/22 [History] Hydroxyurea 500 mg PO QAM 10/25/22 [History] rOPINIRole HCL [Requip] 0.5 mg PO HS 10/25/22 [History] Valsartan/Hydrochlorothiazide [Valsartan-Hctz 320-25 mg Tab] 1 each PO DAILY 09/17/23 [History] Dapagliflozin Propanediol [Farxiga] 10 mg PO DAILY 10/22/23 [History] Hydroxyurea 500 mg PO MOWEFR 10/22/23 [History] Multivit-Minerals/FA/Lycopene [One-A-Day Men's 50 Plus Tablet] 1 each PO DAILY 04/14/24 [History] Pravastatin Sodium [Pravachol] 40 mg PO HS 04/14/24 [History] Tirzepatide [Mounjaro] 2.5 mg SQ MO 04/14/24 [History] Turmeric Root Extract [Turmeric] 500 mg PO HS 04/14/24 [History] Aspirin [Adult Low Dose Aspirin EC] 81 mg PO BID #60 tab 04/21/24 [Rx] HYDROcodone/APAP 7.5-325MG [[place] 7.5] 1 each PO Q6HR PRN #28 tab 04/21/24 [Rx] Sennosides/Docusate Sodium [Senna-S 8.6-50 mg Tablet] 2 each PO DAILY PRN #30 tablet 04/21/24 [Rx] Follow up Appointment(s)/Referral(s): [facility],Equipment [NON-STAFF] - As Needed (*Call [facility] once home to arrange delivery of the Continuous Passive Motion (CPM) machine. ) Kenneth Cardoza, MARIBEL [PHYSICIAN EDUCATION AND TRAINING COORDINATOR] - 2 Weeks [facility], [NON-STAFF] - 1-2 Days ([facility] will call you to schedule your in home nursing and physical therapy visits. ) Activity/Diet/Wound Care/Special Instructions: Orthopedic Discharge Instructions: 1. Wound care and infection precautions, keep incision dry and covered while showering, no lotions, creams, moisturizers. No soaking, pools, hot tubs. Do not scrub over incision. 2. Weight-bear as tolerated with walker / cane until follow-up. 3. Ice and elevate when necessary. Do not exceed 20 minutes per hour with ice pack. 4. Utilize compression sleeve until seen at first follow up appointment. 5. Pain meds and anticoagulants per prescription. 6. Pain medication has potential to cause constipation. Increase oral fluid and fiber intake. Contact primary care provider if you have not had a bowel movement within 48 hours after discharge. 7. No anti-inflammatory medication until discussed at first post operative visit, this including Motrin, Aleve, Mobic, Diclofenac. 8. Follow up in office at 2 weeks postop with Manoj Cardoza PA-C/Jules Rodriguez PA-C 9. Follow up with your primary care doctor 7-10 days after discharge. 10. Contact [facility] with any questions, . Wound care instructions: 1. Okay to remove surgical dressing as of 04/29/2024 2 Okay to shower directly over the incision after removal of dressing. Discharge Disposition: HOME WITH HOME HEALTH SERVICES
--- NOTE | 2024-04-21 18:43 | P.CONS ---
History of Present Illness - Reason for Consult Consult date: 04/20/24 Medical management Requesting physician: Sonny Hager - Chief Complaint Status post right total knee arthroplasty - History of Present Illness HISTORY OF PRESENT ILLNESS: This is a 78-year-old male patient of mine with a previous medical history significant for hypertension and hypertensive cardiovascular disease, hyperlipidemia, diabetes mellitus type 2, diabetic polyneuropathy, spondylosis of the lumbar spine status post posterior lumbar discectomy with fusion, history of enlarged prostate, history of osteoarthritis, patient underwent right total k nee arthroplasty that was done successfully by Dr. Hager and we were asked to see the patient for postoperative medical management, patient is laying down in bed in no apparent distress, he denies any chest pain, shortness of breath, he has no abdominal pain, nausea vomiting or diarrhea, he seems to be tolerating treatment very well. REVIEW OF SYSTEMS: Constitutional: No documented fever, no chills, no night sweats. No weight change. No weakness, fatigue or lethargy. No daytime sleepiness. EENT: No headache. No blurred vision or double vision, no loss of vision. No loss of Hearing, no ringing in the ears, no dizziness. No nasal drainage or congestion. No epistaxis. No sore throat. Lungs: No shortness of breath, no cough, no sputum production. No wheezing. Reports dyspnea with activity. Cardiovascular: No chest pain, no lower extremity edema. No palpitations. No paroxysmal nocturnal dyspnea. No orthopnea. No lightheadedness or dizziness. No syncopal episodes. Abdominal: Reports abdominal pain. No nausea, vomiting. No diarrhea. No constipation. No bloody or tarry stools reports loss of appetite. Genitourinary: No dysuria, increased frequency, urgency. No urinary retention. Musculoskeletal: No myalgias. No muscle weakness, positive for gait dysfunction, no frequent falls. No back pain. No neck pain. Integumentary: Right knee wound is covered, no lesions. No rash or pruritus. No unusual bruising. No change in hair or nails. Neurologic: No aphasia. No facial droop. No change in mentation. No head injury. No headache. No paralysis. No paresthesia. Psychiatric: No depression. No anxiety. No mood swings. Endocrine: No abnormal blood sugars. No weight change. PAST MEDICAL HISTORY: Hypertension and hypertensive cardiovascular disease. Mixed hyperlipidemia. Diabetes mellitus type 2. Diabetic polyneuropathy. Spondylosis of the lumbar spine status post posterior lumbar discectomy with fusion. Osteoarthritis. Enlarged prostate. Anxiety. GERD with esophagitis. PAST SURGICAL HISTORY: Posterior lumbar discectomy with fusion L4-L5 in 2018 with bone graft. Bilateral cataract surgery Hernia repair with mesh 1980 Tonsillectomy Colonoscopy 2023 Sacroiliac joint fusion on the left Cardiac ablation. SOCIAL HISTORY: Patient denies a history of smoking, he denies any history of drinking, he denies any drug use or abuse. He lives with his . FAMILY HISTORY: Father at age of 90 from congestive heart failure, mother lived to be in [id number] and from old age. Patient has 1 sister alive and well 93-year-old, patient has 1 daughter alive and well. PHYSICAL EXAMINATION: General: 78-year-old male laying down in bed in no apparent distress HEENT: Head is atraumatic, normocephalic, pupils were equal round reactive to light and recommendation, extraocular muscle movement were intact, sclera nonicteric, conjunctivae were pale, mucous membranes of the mouth are somewhat dry. Neck: Supple, no JVP, normal carotid upstroke bilaterally, no lymphadenopathy. Chest: Decreased breath sounds at the bases, few rhonchi, no expiratory wheezes, no chest wall tenderness, no intercostal retractions. Heart: First heart sound is normal, second heart sound is normal there is systolic ejection murmur 2/6 located in the left sternal border. Abdomen: Soft, nontender, nondistended, positive bowel sounds. Extremities: There is no edema no calf tenderness DP +2 bilaterally. Neurologic examination: Patient is awake alert and oriented x3, cranial nerves II-12 appear grossly intact, muscle power were 5 out of 5 in upper extremities and 5 out of 5 in bilateral lower extremities, deep tendon reflexes normal bilaterally. ASSESSMENT AND PLAN: 1. Postoperative day #0 status post right total knee arthroplasty. Patient was instructed to use incentive spirometer to reduce the incidence of atelectasis and healthcare associated pneumonia, continue current pain management as outlined by orthopedic surgery, continue DVT prophylaxis with aspirin 325 mg orally twice every day, early ambulation, physical therapy evaluation, likely the patient will be discharged home in the next 24 hours. 2. Hypertension and hypertensive cardiovascular disease. Continue patient on amlodipine 2.5 mg once every day, carvedilol 25 mg orally twice every day, continue Diovan 320/25 mg orally once every day monitor the patient blood press ure very closely. 3. Mixed hyperlipidemia. Continue pravastatin 40 mg at bedtime, monitor lipid panel, keep LDL 55-70. 4. Diabetes mellitus type 2. Currently on sliding scale insulin, continue F arxiga 10 mg once every day, hold off Mounjaro while he is in the hospital, for the next week or so to avoid aspiration, monitor the patient blood glucose level before each meal and at bedtime. 5. Diabetic polyneuropathy. Continue gabapentin 300 mg orally twice every day, continue patient on Cymbalta 30 mg once every day, monitor the patient very closely. 6. Restless leg syndrome continue ropinirole 0.5 mg at bedtime. 7. Parkinson disease continue patient on Sinemet 25/101 tablet orally 3 times every day. 8. Osteoarthritis. Continue current pain management. 9. Enlarged prostate. Monitor for urinary retention. 10. DVT prophylaxis. Patient was started on aspirin 325 mg orally twice every day per orthopedic service. Early ambulation is in order 11. GERD with esophagitis. As well as GI prophylaxis continue patient on Protonix 40 mg orally twice every day. 12. Thank you for the consultation will follow the patient along with you. Past Medical History Past Medical History: GERD/Reflux, Hearing Disorder / Deafness, Hyperlipidemia, Hypertension, Osteoarthritis (OA) Additional Past Medical History / Comment(s): left orbital fx 6 MONTHS ago jul 2023-hospitalized at [facility] for 24 hrs-no brain bleed was noted on CT x2,and bruised ribs.", TREMORS OF HANDS, CYST ON KIDNEY, ELEVATED WBC, some circulation problems, wears compression stockings, "aortic aneurysm being monitored by Dr. Goodman", hearing aid use. pt states he takes farxiga for liver and kidneys. History of Any Multi-Drug Resistant Organisms: None Reported Past Surgical History: Back Surgery, Hernia Repair, Orthopedic Surgery Additional Past Surgical History / Comment(s): BILATERAL SHOULDER SURGERY, BACK SURGERY WITH TITANIUM CAGE PLACED, COLONOSCOPY. PAIN CLINIC PROCEDURE Past Anesthesia/Blood Transfusion Reactions: No Reported Reaction Additional Past Anesthesia/Blood Transfusion Reaction / Comm: one of previous injections legs were numb had extended stay in post op Past Psychological History: No Psychological Hx Reported Smoking Status: Former smoker Past Alcohol Use History: Rare Additional Past Alcohol Use History / Comment(s): STARTED SMOKING AT AGE 20, PIPE AND CIGARS, QUIT AT AGE 42, SMOKED 2 PER DAY. Past Drug Use History: None Reported - Past Family History Mother Family Medical History: No Reported History Medications and Allergies Home Medications Medication Instructions Recorded Confirmed Type Aspirin 81 mg PO HS 08/27/17 04/20/24 History Pantoprazole Sodium 40 mg PO BID 08/27/17 04/20/24 History amLODIPine BESYLATE [Norvasc] 2.5 mg PO DAILY 08/27/17 04/20/24 History carvediloL [Coreg] 25 mg PO BID 08/27/17 04/20/24 History Carbidopa-Levodopa 25-100 mg 1 each PO TID 07/20/20 04/20/24 History [Sinemet 25-100] DULoxetine HCL [Cymbalta] 30 mg PO DAILY 10/25/22 04/20/24 History Gabapentin 300 mg PO BID 10/25/22 04/20/24 History HYDROcodone/APAP 7.5-325MG [[place] 1 tab PO BID PRN 10/25/22 04/20/24 History 7.5-325] Hydroxyurea 500 mg PO QAM 10/25/22 04/20/24 History rOPINIRole HCL [Requip] 0.5 mg PO HS 10/25/22 04/20/24 History Valsartan/Hydrochlorothiazide 1 each PO DAILY 09/17/23 04/20/24 History [Valsartan-Hctz 320-25 mg Tab] Dapagliflozin Propanediol [Farxiga] 10 mg PO DAILY 10/22/23 04/20/24 History Hydroxyurea 500 mg PO MOWEFR 10/22/23 04/20/24 History Multivit-Minerals/FA/Lycopene 1 each PO DAILY 04/14/24 04/20/24 History [One-A-Day Men's 50 Plus Tablet] Pravastatin Sodium [Pravachol] 40 mg PO HS 04/14/24 04/20/24 History Tirzepatide [Mounjaro] 2.5 mg SQ MO 04/14/24 04/20/24 History Turmeric Root Extract [Turmeric] 500 mg PO HS 04/14/24 04/20/24 History Aspirin [Adult Low Dose Aspirin EC] 81 mg PO BID #60 tab 04/21/24 Rx HYDROcodone/APAP 7.5-325MG [[place] 1 each PO Q6HR PRN #28 tab 04/21/24 Rx 7.5] Sennosides/Docusate Sodium 2 each PO DAILY PRN #30 tablet 04/21/24 Rx [Senna-S 8.6-50 mg Tablet] Allergies Allergy/AdvReac Type Severity Reaction Status Date / Time No Known Allergies Allergy Verified 04/20/24 08:35 Physical Exam Vitals: Vital Signs Temp Pulse Pulse Pulse Resp BP Pulse Ox 04/20/24 13:55 98.0 F 55 L 18 144/66 90 L 04/20/24 13:18 64 18 129/64 97 04/20/24 13:03 53 L 16 118/58 98 04/20/24 12:48 59 L 16 131/55 98 04/20/24 12:33 58 L 16 115/58 98 04/20/24 12:18 62 15 118/49 94 L 04/20/24 12:03 63 15 119/66 94 L 04/20/24 09:59 57 L 15 120/60 95 04/20/24 09:47 58 L 16 136/59 95 04/20/24 08:39 97.3 F L 65 16 141/62 94 L Intake and Output 04/20/24 04/20/24 04/20/24 06:59 14:59 22:59 Intake Total 1051 Output Total 35 Balance 1016 Intake: IV 1051 Output: Estimated Blood Loss 35 Other: Weight 95.3 kg Results CBC & Chem 7: 04/21/24 02:32 04/21/24 02:32 Labs: Abnormal Lab Results - Last 24 Hours (Table) 04/20/24 Range/Units 08:55 POC Glucose (mg/dL) 124 H (70-110) mg/dL
--- NOTE | 2024-04-21 18:46 | P.PN ---
Subjective Progress Note Date: 04/21/24 HISTORY OF PRESENT ILLNESS: This is a 78-year-old male patient of mine with a previous medical history significant for hypertension and hypertensive cardiovascular disease, hyperlipidemia, diabetes mellitus type 2, diabetic polyneuropathy, spondylosis of the lumbar spine status post posterior lumbar discectomy with fusion, history of enlarged prostate, history of osteoarthritis, patient underwent right total knee arthroplasty that was done successfully by Dr. Hager and we were asked to see the patient for postoperative medical management, patient is laying down in bed in no apparent distress, he denies any chest pain, shortness of breath, he has no abdominal pain, nausea vomiting or diarrhea, he seems to be tolerating treatment very well. 04/21: Patient sitting up in a chair no apparent distress, his pain is about 7 out of 10 intensity, he was started on hydrocodone 7.5/325 mg 1 every 4 hours as needed, he continues to ambulate using the walker, he uses the steps orally, he will likely be discharged home later on today, he is complaining of minimal weakness in his urine stream, we will start him on Flomax 0.4 mg orally once every day the prescription will be called to his pharmacy and [facility] in . Patient is medically stable for discharge I will follow-up with the patient as an outpatient in 1 week. REVIEW OF SYSTEMS: Constitutional: No documented fever, no chills, no night sweats. No weight change. No weakness, fatigue or lethargy. No daytime sleepiness. EENT: No headache. No blurred vision or double vision, no loss of vision. No loss of Hearing, no ringing in the ears, no dizziness. No nasal drainage or congestion. No epistaxis. No sore throat. Lungs: No shortness of breath, no cough, no sputum production. No wheezing. Reports dyspnea with activity. Cardiovascular: No chest pain, no lower extremity edema. No palpitations. No paroxysmal nocturnal dyspnea. No orthopnea. No lightheadedness or dizziness. No syncopal episodes. Abdominal: Reports abdominal pain. No nausea, vomiting. No diarrhea. No constipation. No bloody or tarry stools reports loss of appetite. Genitourinary: No dysuria, increased frequency, urgency. No urinary retention. Musculoskeletal: No myalgias. No muscle weakness, positive for gait dysfunction, no frequent falls. No back pain. No neck pain. Integumentary: Right knee wound is covered, no lesions. No rash or pruritus. No unusual bruising. No change in hair or nails. Neurologic: No aphasia. No facial droop. No change in mentation. No head injury. No headache. No paralysis. No paresthesia. Psychiatric: No depression. No anxiety. No mood swings. Endocrine: No abnormal blood sugars. No weight change. PHYSICAL EXAMINATION: General: 78-year-old male laying down in bed in no apparent distress HEENT: Head is atraumatic, normocephalic, pupils were equal round reactive to light and recommendation, extraocular muscle movement were intact, sclera nonicteric, conjunctivae were pale, mucous membranes of the mouth are somewhat dry. Neck: Supple, no JVP, normal carotid upstroke bilaterally, no lymphadenopathy. Chest: Decreased breath sounds at the bases, few rhonchi, no expiratory wheezes, no chest wall tenderness, no intercostal retractions. Heart: First heart sound is normal, second heart sound is normal there is systolic ejection murmur 2/6 located in the left sternal border. Abdomen: Soft, nontender, nondistended, positive bowel sounds. Extremities: There is no edema no calf tenderness DP +2 bilaterally. Neurologic examination: Patient is awake alert and oriented x3, cranial nerves II-12 appear grossly intact, muscle power were 5 out of 5 in upper extremities and 5 out of 5 in bilateral lower extremities, deep tendon reflexes normal bilaterally. ASSESSMENT AND PLAN: 1. Postoperative day #1 status post right total knee arthroplasty. Patient was instructed to use incentive spirometer to reduce the incidence of atelectasis and healthcare associated pneumonia, continue current pain management as outlined by orthopedic surgery, continue DVT prophylaxis with aspirin 325 mg orally twice every day, early ambulation, physical therapy evaluation, likely the patient will be discharged home in the next 24 hours. 2. Hypertension and hypertensive cardiovascular disease. Continue patient on amlodipine 2.5 mg once every day, carvedilol 25 mg orally twice every day, continue Diovan 320/25 mg orally once every day monitor the patient blood pressure very closely. 3. Mixed hyperlipidemia. Continue pravastatin 40 mg at bedtime, monitor lipid panel, keep LDL 55-70. 4. Diabetes mellitus type 2. Currently on sliding scale insulin, continue Farxiga 10 mg once every day, hold off Mounjaro while he is in the hospital, for the next week or so to avoid aspiration, monitor the patient blood glucose level before each meal and at bedtime. 5. Diabetic polyneuropathy. Continue gabapentin 300 mg orally twice every day, continue patient on Cymbalta 30 mg once every day, monitor the patient very closely. 6. Restless leg syndrome continue ropinirole 0.5 mg at bedtime. 7. Parkinson disease continue patient on Sinemet 25/100 mg 1 tablet orally 3 t imes every day. 8. Osteoarthritis. Continue current pain management. 9. Enlarged prostate. Monitor for urinary retention. I will start the patient on Flomax 0.4 mg orally once every day. 10. DVT prophylaxis. Patient was started on aspirin 325 mg orally twice every day per orthopedic service. Early ambulation is in order 11. GERD with esophagitis. As well as GI prophylaxis continue patient on Protonix 40 mg orally twice every day. 12. Patient is medically stable for discharge Objective - Vital Signs Vital signs: Vital Signs Temp 98.1 F 04/21/24 07:15 Pulse 80 04/21/24 07:15 Resp 18 04/21/24 10:48 BP 149/87 04/21/24 07:15 Pulse Ox 97 04/21/24 08:14 FiO2 Intake & Output 04/20/24 04/21/24 04/21/24 18:59 06:59 18:59 Intake Total 1051 540 200 Output Total 35 Balance 1016 540 200 Weight 95.3 kg Intake: IV 1051 Oral 540 200 Output: Estimated Blood Loss 35 Other: Voiding Method Toilet Toilet # Voids 3 - Labs CBC & Chem 7: 04/21/24 02:32 04/21/24 02:32 Labs: Abnormal Lab Results - Last 24 Hours (Table) 04/20/24 04/21/24 04/21/24 Range/Units 20:26 02:32 02:32 WBC 15.76 H (4.50-10.00) X 10*3/uL MCV 105.6 H (80.0-97.0) FL MCH 34.2 H (27.0-32.0) pg RDW 16.9 H (11.5-14.5) % Immature Gran # 0.14 H (0.00-0.04) X 10*3/uL Neutrophils # 12.97 H (1.80-7.70) X 10*3/uL Monocytes # 1.49 H (0.20-1.00) X 10*3/uL Eosinophils # 0 L (0.04-0.35) X 10*3/uL NRBC/100 WBC Diff 0.02 H (0.00-0.01) X 10*3/uL Macrocytosis (manual) 2+ A Anion Gap 14.00 H (4.00-12.00) mmol/L BUN/Creatinine Ratio 21.20 H (12.00-20.00) Ratio Glucose 164 H (70-110) mg/dL POC Glucose (mg/dL) 203 H (70-110) mg/dL Albumin/Globulin Ratio 1.56 L (1.60-3.17) Ratio 04/21/24 04/21/24 Range/Units 06:28 12:04 WBC (4.50-10.00) X 10*3/uL MCV (80.0-97.0) FL MCH (27.0-32.0) pg RDW (11.5-14.5) % Immature Gran # (0.00-0.04) X 10*3/uL Neutrophils # (1.80-7.70) X 10*3/uL Monocytes # (0.20-1.00) X 10*3/uL Eosinophils # (0.04-0.35) X 10*3/uL NRBC/100 WBC Diff (0.00-0.01) X 10*3/uL Macrocytosis (manual) Anion Gap (4.00-12.00) mmol/L BUN/Creatinine Ratio (12.00-20.00) Ratio Glucose (70-110) mg/dL POC Glucose (mg/dL) 145 H 169 H (70-110) mg/dL Albumin/Globulin Ratio (1.60-3.17) Ratio
[2024-04-22] MEDS ORDERED: HYDROXYUREA 500 MG CAP PO SCH (07:00)
== END 2024-04-21 13:05 | disposition home health service (06) ==
LOC: OR 08:10 → 4SSUR 13:23 → OR 04-21 13:05
PROVIDERS: ATTEND Orthopaedic Surgery
CPT/HCPCS: 64448; 64999; 80053; 85025; 94760

== ENCOUNTER 2024-07-05 22:14 | Observation (INO) | payer MEDICARE ==
[2024-07-05] MEDS ORDERED: RX INFO: IV CONTRAST WAS GIVEN 1 EACH MISC MISCELLANE PRN (22:16)
[2024-07-05] MEDS: HYDROmorphone 1 MG/ML 1 ML SYRINGE IVP STA ×2 (22:30→23:36)
[2024-07-05 22:40] LABS: ALT 14 U/L (4-49); AST 39 U/L (17-59); African American GFR (CKD) 71 (>60 ml/min/1.73 sqM); Albumin 4.4 g/dL (3.5-5.0); Alkaline Phosphatase 89 U/L (38-126); Anion Gap 8 mmol/L; Blood Urea Nitrogen 24 mg/dL (9-20); Calcium 9.3 mg/dL (8.4-10.2); Carbon Dioxide 31 mmol/L (22-30); Chloride 99 mmol/L (98-107); Glucose 139 mg/dL (74-99); Non-African American GFR(CKD) 62 (>60 ml/min/1.73 sqM); Potassium 4.7 mmol/L (3.5-5.1); Sodium 138 mmol/L (137-145); Total Bilirubin 0.7 mg/dL (0.2-1.3); Total Protein 7.2 g/dL (6.3-8.2)
[2024-07-05 22:41] LABS: INR 1.1 (<1.2); Prothrombin Time 11.8 sec (10.0-12.5)
--- NOTE | 2024-07-05 22:43 | ED ---
General Adult HPI - General Chief complaint: Fall Stated complaint: Fall Time Seen by Provider: 07/05/24 22:15 Source: patient, EMS, RN notes reviewed, old records reviewed Mode of arrival: EMS Limitations: no limitations - History of Present Illness Initial comments: 78-year-old male presenting with severe right knee pain after fall. Patient states he was walking downstairs, fell injuring the right knee. Patient is postop right total knee replacement. He states that his knee was healing quite well. Patient was unable to bend the knee, stand, or move he had severe pain and was transported by paramedics, given 75 mcg of fentanyl during transport. He denies head or neck trauma. Denies any other injury. - Related Data Home Medications Medication Instructions Recorded Confirmed Aspirin 81 mg PO HS 08/27/17 07/06/24 Pantoprazole Sodium 40 mg PO BID 08/27/17 07/06/24 amLODIPine BESYLATE [Norvasc] 2.5 mg PO DAILY 08/27/17 07/06/24 carvediloL [Coreg] 25 mg PO BID 08/27/17 07/06/24 Carbidopa-Levodopa 25-100 mg 1 tab PO TID 07/20/20 07/06/24 [Sinemet 25-100] DULoxetine HCL [Cymbalta] 30 mg PO DAILY 10/25/22 07/06/24 Gabapentin 300 mg PO BID 10/25/22 07/06/24 HYDROcodone/APAP 7.5-325MG [Polo 1 tab PO BID-W/MEALS 10/25/22 07/06/24 7.5-325] Hydroxyurea 500 mg PO QAM 10/25/22 07/06/24 rOPINIRole HCL [Requip] 0.5 mg PO HS 10/25/22 07/06/24 Valsartan/Hydrochlorothiazide 1 tab PO DAILY 09/17/23 07/06/24 [Valsartan-Hctz 320-25 mg Tab] Dapagliflozin Propanediol [Farxiga] 10 mg PO DAILY 10/22/23 07/06/24 Hydroxyurea 500 mg PO MOTUWETH@2100 10/22/23 07/06/24 Multivit-Minerals/FA/Lycopene 1 each PO DAILY 04/14/24 07/06/24 [One-A-Day Men's 50 Plus Tablet] Pravastatin Sodium [Pravachol] 40 mg PO HS 04/14/24 07/06/24 Turmeric Root Extract [Turmeric] 500 mg PO HS 04/14/24 07/06/24 Ferrous Sulfate [Feosol] 325 mg PO DAILY 07/06/24 07/06/24 Semaglutide [Ozempic] 0.5 mg SQ MO 07/06/24 07/06/24 Sennosides/Docusate Sodium 2 tab PO DAILY PRN 07/06/24 07/06/24 [Senna-S 8.6-50 mg Tablet] Tamsulosin [Flomax] 0.4 mg PO DAILY 07/06/24 07/06/24 Zinc Gluconate [Zinc] 50 mg PO DAILY 07/06/24 07/06/24 Allergies Allergy/AdvReac Type Severity Reaction Status Date / Time No Known Allergies Allergy Verified 07/06/24 09:22 Review of Systems ROS Statement: Those systems with pertinent positive or pertinent negative responses have been documented in the HPI. ROS Other: All systems not noted in ROS Statement are negative. Past Medical History Past Medical History: GERD/Reflux, Hearing Disorder / Deafness, Hyperlipidemia, Hypertension, Osteoarthritis (OA) Additional Past Medical History / Comment(s): left orbital fx 6 weeks ago- hospitalized at [facility] for 24 hrs-no brain bleed was noted on CT x2,and bruised ribs.", TREMORS OF HANDS, CYST ON KIDNEY, ELEVATED WBC, some circulation problems, wears compression stockings, "aortic aneurysm being monitored by Dr. Goodman", hearing aid use. pt states he takes farxiga for liver and kidneys he states he was not told he was diabetic .supposed to watch diet History of Any Multi-Drug Resistant Organisms: None Reported Past Surgical History: Back Surgery, Hernia Repair, Orthopedic Surgery Additional Past Surgical History / Comment(s): BILATERAL SHOULDER SURGERY, BACK SURGERY WITH TITANIUM CAGE PLACED, COLONOSCOPY. Past Anesthesia/Blood Transfusion Reactions: No Reported Reaction Additional Past Anesthesia/Blood Transfusion Reaction / Comment(s): one of previous injections legs were numb had extended stay in post op Past Psychological History: No Psychological Hx Reported Smoking Status: Former smoker Past Alcohol Use History: Rare Past Drug Use History: None Reported - Past Family History Mother Family Medical History: No Reported History General Exam Limitations: no limitations General appearance: alert, in no apparent distress Head exam: Present: atraumatic, normocephalic Eye exam: Present: normal appearance, PERRL ENT exam: Present: normal exam Neck exam: Present: normal inspection. Absent: tenderness, meningismus Respiratory exam: Present: normal lung sounds bilaterally. Absent: respiratory distress, wheezes Cardiovascular Exam: Present: regular rate, normal rhythm GI/Abdominal exam: Present: soft. Absent: distended, tenderness, guarding Extremities exam: Present: tenderness, joint swelling (Large knee effusion on the right with anterior ecchymosis), other (2+ pedal pulses on the right.). Absent: full ROM Neurological exam: Present: alert, oriented X3 Psychiatric exam: Present: normal affect, normal mood Skin exam: Present: warm, dry, intact Course Vital Signs 07/05/24 07/06/24 22:16 06:11 Temperature 98.7 F 98.1 F Pulse Rate 94 99 Respiratory 18 18 Rate Blood Pressure 173/97 119/63 O2 Sat by Pulse 97 96 Oximetry Medical Decision Making - Medical Decision Making Was pt. sent in by a medical professional or institution (Dr. PA, TUNNEL ELASTIC OPERATOR LOCKSTITCH, urgent care, hospital, or assisted...) When possible be specific @ -No Did you speak to anyone other than the patient for history (EMS, parent, family, police, friend...)? What history was obtained from this source @ -No Did you review nursing and triage notes (agree or disagree)? Why? @ -I reviewed and agree with nursing and triage notes Were old charts reviewed (outside hosp., previous admission, EMS record, old EKG, old radiological studies, urgent care reports/EKG's, assisted records)? Report findings @ -No old charts were reviewed Differential Musculoskeletal Muscular strain, contusion, ligament sprain, fracture, arthritis, septic arthritis, bursitis, cellulitis, muscle spasm, nerve compression, DVT, arterial occlusion, herpes zoster, electrolyte abnormality, tumor.... This is not meant to be in all inclusive list EKG interpreted by me (3pts min.). @ -As above X-rays interpreted by me (1pt min.). @X-ray of the right knee is negative for displaced fracture or dislocation CT interpreted by me (1pt min.). @CT angiography is performed which shows distal quadricep hematoma with extra vasation,. U/S interpreted by me (1pt. min.). @ -None done What testing was considered but not performed or refused? (CT, X-rays, U/S, labs)? Why? @ -None What meds were considered but not given or refused? Why? @ -None Did you discuss the management of the patient with other professionals (abdulkadir bazan i.e. , PA, TUNNEL ELASTIC OPERATOR LOCKSTITCH, lab, RT, psych nurse, director social, cream dumper, teacher, ammunition officer, corrections caseworker)? Give summary @ -Case discussed with Dr. Hodgson, [facility], Was smoking cessation discussed for >3mins.? @ -No Was critical care preformed (if so, how long)? @ -No Were there social determinants of health that impacted care today? How? (Homelessness, low income, unemployed, alcoholism, drug addiction, transportation, low edu. Level, literacy, decrease access to med. care, detention, rehab)? @ -No Was there de-escalation of care discussed even if they declined (Discuss DNR or withdrawal of care, Hospice)? DNR status @ -No What co-morbidities impacted this encounter? (DM, HTN, Smoking, COPD, CAD, Cancer, CVA, ARF, Chemo, Hep., AIDS, mental health diagnosis, sleep apnea, morbid obesity)? @ -[Recent right knee replacement. Was patient admitted / discharged? Hospital course, mention meds given and route, prescriptions, significant lab abnormalities, going to OR and other pertinent info. @ -78-year-old male with right knee injury. Patient fell down several steps, injury isolated to the right knee. There is significant soft tissue swelling, knee effusion and ecchymosis over the knee. Distal pulses are intact. There is concern for vascular injury and CT angiography is obtained. This shows a hematoma within the quadriceps with extravasation. The patient is placed in an Campos wrap and knee immobilizer. He is admitted for further evaluation and monitoring. Consults to both vascular surgery and orthopedic surgery have been placed. Undiagnosed new problem with uncertain prognosis? @ -No Drug Therapy requiring intensive monitoring for toxicity (Heparin, Nitro, Insulin, Cardizem)? @ -No Were any procedures done? @ -No Diagnosis/symptom? @ -Quadriceps hematoma and concern for ligamentous injury of the knee. Acute, or Chronic, or Acute on Chronic? @ -Acute Uncomplicated (without systemic symptoms) or Complicated (systemic symptoms)? @ -Default Side effects of treatment? @ -No Exacerbation, Progression, or Severe Exacerbation? @ -No Poses a threat to life or bodily function? How? (Chest pain, USA, LA, pneumonia, PE, COPD, DKA, ARF, appy, cholecystitis, CVA, Diverticulitis, Homicidal, Suicidal, threat to staff... and all critical care pts) @ -Yes, traumatic injury to the right knee. - Lab Data Result diagrams: 07/06/24 15:36 07/05/24 22:20 Lab Results 07/05/24 07/05/24 07/05/24 Range/Units 22:20 22:20 22:20 WBC 13.4 H (3.8-10.6) k/uL RBC 4.25 L (4.30-5.90) m/uL Hgb 15.1 (13.0-17.5) gm/dL Hct 46.1 (39.0-53.0) % MCV 108.5 H (80.0-100.0) fL MCH 35.6 H (25.0-35.0) pg MCHC 32.8 (31.0-37.0) g/dL RDW 13.9 (11.5-15.5) % Plt Count 255 (150-450) k/uL MPV 9.4 Neutrophils % 76 % Lymphocytes % 14 % Monocytes % 7 % Eosinophils % 1 % Basophils % 1 % Neutrophils # 10.2 H (1.3-7.7) k/uL Lymphocytes # 1.8 (1.0-4.8) k/uL Monocytes # 0.9 (0-1.0) k/uL Eosinophils # 0.1 (0-0.7) k/uL Basophils # 0.1 (0-0.2) k/uL Manual Slide Review Performed Hypersegmented Neuts Present Hypochromasia Slight Macrocytosis Marked A Tear Drop Cells Present PT 11.8 (10.0-12.5) sec INR 1.1 (<1.2) APTT 25.0 (22.0-30.0) sec Sodium 138 (137-145) mmol/L Potassium 4.7 (3.5-5.1) mmol/L Chloride 99 (98-107) mmol/L Carbon Dioxide 31 H (22-30) mmol/L Anion Gap 8 mmol/L BUN 24 H (9-20) mg/dL Creatinine 1.13 (0.66-1.25) mg/dL Est GFR (CKD-EPI)AfAm 71 (>60 ml/min/1.73 sqM) Est GFR (CKD-EPI)NonAf 62 (>60 ml/min/1.73 sqM) Glucose 139 H (74-99) mg/dL Calcium 9.3 (8.4-10.2) mg/dL Total Bilirubin 0.7 (0.2-1.3) mg/dL AST 39 (17-59) U/L ALT 14 (4-49) U/L Alkaline Phosphatase 89 (38-126) U/L Total Protein 7.2 (6.3-8.2) g/dL Albumin 4.4 (3.5-5.0) g/dL Disposition Clinical Impression: Status post total right knee replacement, Hematoma, Unstable knee Disposition: ADMITTED IP TO THIS HOSP Condition: Stable Is patient prescribed a controlled substance at d/c from ED?: No Time of Disposition: 03:50
[2024-07-05 22:47] LABS: Basophils # (A) 0.1 k/uL (0-0.2); Basophils % (A) 1 %; Eosinophils # (A) 0.1 k/uL (0-0.7); Eosinophils % (A) 1 %; HCT 46.1 % (39.0-53.0); HGB 15.1 gm/dL (13.0-17.5); Hypochromasia Slight; Lymphocytes # (A) 1.8 k/uL (1.0-4.8); Lymphocytes % (A) 14 %; MCH 35.6 pg (25.0-35.0); MCHC 32.8 g/dL (31.0-37.0); MCV 108.5 fL (80.0-100.0); Macrocytosis Marked; Mean Platelet Volume 9.4; Monocytes # (A) 0.9 k/uL (0-1.0); Monocytes % (A) 7 %; Neutrophils # (A) 10.2 k/uL (1.3-7.7); Neutrophils % (A) 76 %; Platelet Count 255 k/uL (150-450); RBC 4.25 m/uL (4.30-5.90); RDW 13.9 % (11.5-15.5); WBC 13.4 k/uL (3.8-10.6)
[2024-07-06] LABS: Tear Drop Cells Present
[2024-07-06 00:02] LABS: Hypersegmented Neutrophils Present
[2024-07-06] MEDS: HYDROmorphone 1 MG/ML 1 ML SYRINGE IVP STA (01:17)
--- NOTE | 2024-07-06 01:39 | XR ---
EXAM: XR Right Knee, 3 Views CLINICAL HISTORY: ITS.REASON XR Reason: fall/severe pain TECHNIQUE: Three views of the right knee. COMPARISON: No relevant prior studies available. FINDINGS: Bones/joints: RIGHT knee arthroplasty. No periprosthetic fracture, loosening, or subluxation. Soft tissues: Severe soft tissue swelling superior to the patella. Correlate with the concomitant CT scan. IMPRESSION: Severe soft tissue swelling superior to the patella. Correlate with the concomitant CT scan, where there is concern for quadriceps rupture.
--- NOTE | 2024-07-06 01:54 | CT ---
EXAM: CT Angiography of the Right Lower Extremity With Intravenous Contrast CLINICAL HISTORY: ITS.REASON CT Reason: fall/severe pain/possible dislocation TECHNIQUE: Axial computed tomographic angiography images of the right lower extremity with intravenous contrast. CTDI is 35.27 mGy and DLP is 1671.8 mGy-cm. This CT exam was performed using one or more of the following dose reduction techniques: automated exposure control, adjustment of the mA and/or kV according to patient size, and/or use of iterative reconstruction technique. MIP reconstructed images were created and reviewed. COMPARISON: No relevant prior studies available. FINDINGS: VASCULATURE: Right femoral/popliteal arteries: No acute findings. No occlusion or significant stenosis. Right calf/foot arteries: No acute findings. No occlusion or significant stenosis. LOWER EXTREMITY: Bones/joints: 11 x 4.4 cm intramuscular hematoma involving the right quadriceps muscle. There is active contrast extravasation into the hematoma best appreciated on axial image 328 series 401. Presumably this is from a intramuscular branch of the SFA. Postoperative changes right knee arthroplasty limits evaluation of the popliteal artery. No acute fracture. No dislocation. Soft tissues: Unremarkable. No abnormal contrast enhancement. Other findings: . IMPRESSION: 11 x 4.4 cm intramuscular hematoma involving the right quadriceps muscle with an area of active contrast extravasation presumably from a genicular branch of the SFA present. <MYCVCSECTION> Communications: 07/06/24 01:58 Call Doctor Regarding Active Bleeding in any site, called Dr. Zhu on 07/06 01:57 (-05:00)
[2024-07-06] MEDS ORDERED: NALOXONE 0.4 MG/ML 1 ML VIAL IV PRN (03:44)
[2024-07-06] MEDS: HYDROmorphone 1 MG/ML 1 ML SYRINGE IVP PRN (04:13)
[2024-07-06] MEDS: SODIUM CHLORIDE 0.9% 1,000 ML IV SCH (04:43)
[2024-07-06] MEDS: ACETAMINOPHEN TAB 325 MG TAB PO PRN (05:17)
--- NOTE | 2024-07-06 07:07 | P.PN ---
Progress Note - Text Progress Note Date: 07/06/24 Full consult pending. Spoke to ED provider around 2 AM about pt. Concern for taut hematoma and quad rupture as well as possible active bleeding from a geniculate branch a. branch. Hematoma was not expanding. Pt in knee immobilizer and compressive wrap. Agree with admission, vascular and ortho consult.
--- NOTE | 2024-07-06 08:02 | P.CNOR ---
History of Present Illness - HPI Consult date: 07/06/24 Consult reason: joint pain History of present illness: Pt seen in ED this AM in [facility]. 78 yo male presents s/p fall from standing at home where he states he was attempting to change a light bulb when he tripped and fell causing his right leg to get caught underneath him and he fell directly on to his knees. He states after he was unable ambulate after and he states he cannot lift his leg. Severe swelling was noted when he fell and after and this also brought him in along with the pain. He states no numbness/tingling. No other injury at this time. No pain in hip or ankles. at bedside with him today. Dr. Hager did his TKA back in April of this year and he has been doing well with this until this fall. No BHT or LOC Review of Systems 16 pt ROS completed and as stated in HPI. All other systems reviewed negative. Past Medical History Past Medical History: GERD/Reflux, Hearing Disorder / Deafness, Hyperlipidemia, Hypertension, Osteoarthritis (OA) Additional Past Medical History / Comment(s): left orbital fx 6 weeks ago- hospitalized at [facility] for 24 hrs-no brain bleed was noted on CT x2,and bruised ribs.", TREMORS OF HANDS, CYST ON KIDNEY, ELEVATED WBC, some circulation problems, wears compression stockings, "aortic aneurysm being monitored by Dr. Goodman", hearing aid use. pt states he takes farxiga for liver and kidneys he states he was not told he was diabetic .supposed to watch diet History of Any Multi-Drug Resistant Organisms: None Reported Past Surgical History: Back Surgery, Hernia Repair, Orthopedic Surgery Additional Past Surgical History / Comment(s): BILATERAL SHOULDER SURGERY, BACK SURGERY WITH TITANIUM CAGE PLACED, COLONOSCOPY. Past Anesthesia/Blood Transfusion Reactions: No Reported Reaction Additional Past Anesthesia/Blood Transfusion Reaction / Comm: one of previous injections legs were numb had extended stay in post op Past Psychological History: No Psychological Hx Reported Smoking Status: Former smoker Past Alcohol Use History: Rare Past Drug Use History: None Reported - Past Family History Mother Family Medical History: No Reported History Medications and Allergies Home Medications Medication Instructions Recorded Confirmed Type Aspirin 81 mg PO HS 08/27/17 04/20/24 History Pantoprazole Sodium 40 mg PO BID 08/27/17 04/20/24 History amLODIPine BESYLATE [Norvasc] 2.5 mg PO DAILY 08/27/17 04/20/24 History carvediloL [Coreg] 25 mg PO BID 08/27/17 04/20/24 History Carbidopa-Levodopa 25-100 mg 1 each PO TID 07/20/20 04/20/24 History [Sinemet 25-100] DULoxetine HCL [Cymbalta] 30 mg PO DAILY 10/25/22 04/20/24 History Gabapentin 300 mg PO BID 10/25/22 04/20/24 History HYDROcodone/APAP 7.5-325MG [[place] 1 tab PO BID PRN 10/25/22 04/20/24 History 7.5-325] Hydroxyurea 500 mg PO QAM 10/25/22 04/20/24 History rOPINIRole HCL [Requip] 0.5 mg PO HS 10/25/22 04/20/24 History Valsartan/Hydrochlorothiazide 1 each PO DAILY 09/17/23 04/20/24 History [Valsartan-Hctz 320-25 mg Tab] Dapagliflozin Propanediol [Farxiga] 10 mg PO DAILY 10/22/23 04/20/24 History Hydroxyurea 500 mg PO MOWEFR 10/22/23 04/20/24 History Multivit-Minerals/FA/Lycopene 1 each PO DAILY 04/14/24 04/20/24 History [One-A-Day Men's 50 Plus Tablet] Pravastatin Sodium [Pravachol] 40 mg PO HS 04/14/24 04/20/24 History Tirzepatide [Mounjaro] 2.5 mg SQ MO 04/14/24 04/20/24 History Turmeric Root Extract [Turmeric] 500 mg PO HS 04/14/24 04/20/24 History Aspirin [Adult Low Dose Aspirin EC] 81 mg PO BID #60 tab 04/21/24 Rx HYDROcodone/APAP 7.5-325MG [[place] 1 each PO Q6HR PRN #28 tab 04/21/24 Rx 7.5] Sennosides/Docusate Sodium 2 each PO DAILY PRN #30 tablet 04/21/24 Rx [Senna-S 8.6-50 mg Tablet] Allergies Allergy/AdvReac Type Severity Reaction Status Date / Time No Known Allergies Allergy Verified 07/05/24 22:24 Physical Examination Osteopathic Statement: *. No significant issues noted on an osteopathic structural exam other than those noted in the History and Physical/Consult. AOX3 NAD VSS, Afeb TTP about the right knee which is visibly swollen and bruised. There is flucctuence about the knee due to the presumed hematoma with some tautness to the skin, but there is still mild wrinkling. This is either effusion or due to hematoma but there is likely communication with joint due to the fall and presumed injury. Pt is unable to straight leg raise at this time due to presumed quad T. tear. He has FROM of remaining joints that is non painful 2/4 distal pulses compartment soft and compressive SILT L2-S1 5/5 DF/PF/EHL/FHL b/ LE Results XR and CT reviewed. No evidence of implant failure, migration or issues. There is large anterior hematoma just proximal to the proximal pole of the patella which does not appear high riding on lateral imaing, but is slightly higher than normal. Ratio is 1/1.5 at this time. There is large hematoma noted however anteriorly which correlates with exam. There are no fractures or other bony abnormalities. There was mention of extravasation of contrast, this is not evident and the popliteal aa. is patent thru to the PT and the DP. No vascular injury is suspected at this time. - Labs Labs: Abnormal Lab Results - Last 24 Hours (Table) 07/05/24 07/05/24 Range/Units 22:20 22:20 WBC 13.4 H (3.8-10.6) k/uL RBC 4.25 L (4.30-5.90) m/uL MCV 108.5 H (80.0-100.0) fL MCH 35.6 H (25.0-35.0) pg Neutrophils # 10.2 H (1.3-7.7) k/uL Macrocytosis Marked A Carbon Dioxide 31 H (22-30) mmol/L BUN 24 H (9-20) mg/dL Glucose 139 H (74-99) mg/dL H & H 07/05/24 Range/Units 22:20 Hgb 15.1 (13.0-17.5) gm/dL Hct 46.1 (39.0-53.0) % Coagulation 07/05/24 Range/Units 22:20 INR 1.1 (<1.2) Result Diagrams: 07/05/24 22:20 07/05/24 22:20 Assessment and Plan Assessment: 78 yo male s/p R TKA in OCT with presumed quad T. tear and anterior hematoma Right knee pain s/p ffs Plan: -NWB RLE in knee immobilizer -ICE and compressive wrap to RLE, loosen if it becomes uncomfortable -Pain control, avoid anticoagulants at this time -Will discuss case with Dr. Akers as pt will likely need a knee/joint surgeon to take care of his issues.
[2024-07-06] MEDS: NON FORMULARY DRUG (Semaglutide [Ozempic] 2 MG/0.75 ML Pen.Injctr) SQ SCH (14:31)
--- NOTE | 2024-07-06 14:55 | P.GSCN ---
History of Present Illness Consult date: 07/06/24 Reason for Consult: Right thigh hematoma History of present illness: 78 yo male presented to the hospital last night after fall from standing at home. He states he was attempting to change a light bulb when he tripped and fell down the stairs causing his right leg to get caught underneath him and he fell directly on to his knees. He states after he was unable ambulate after and he could not lift his leg. Due to the fact that he was unable to ambulate and his leg began to severely swell he came into the hospital at that time. During his workup he was noted to have active bleeding into his right thigh with what appeared to be a muscle tear. He was seen by orthopedics who wrapped his leg and he states that his leg has been feeling better this morning with the wrap. He still is complaining of significant tenderness to palpation or pain with movement. He denies numbness/tingling. He does have a history of right total knee done in April by Dr. Hager and was doing great prior to his fall. He denies any fevers, chills, chest pain or shortness of breath. Review of Systems All systems: negative (What is mentioned in the HPI or past medical history) Past Medical History Past Medical History: GERD/Reflux, Hearing Disorder / Deafness, Hyperlipidemia, Hypertension, Osteoarthritis (OA) Additional Past Medical History / Comment(s): left orbital fx 6 weeks ago- hospitalized at [facility] for 24 hrs-no brain bleed was noted on CT x2,and bruised ribs.", TREMORS OF HANDS, CYST ON KIDNEY, ELEVATED WBC, some circulation problems, wears compression stockings, "aortic aneurysm being monitored by Dr. Goodman", hearing aid use. pt states he takes farxiga for liver and kidneys he states he was not told he was diabetic .supposed to watch diet History of Any Multi-Drug Resistant Organisms: None Reported Past Surgical History: Back Surgery, Hernia Repair, Orthopedic Surgery Additional Past Surgical History / Comment(s): BILATERAL SHOULDER SURGERY, BACK SURGERY WITH TITANIUM CAGE PLACED, COLONOSCOPY. Past Anesthesia/Blood Transfusion Reactions: No Reported Reaction Additional Past Anesthesia/Blood Transfusion Reaction / Comm: one of previous injections legs were numb had extended stay in post op Past Psychological History: No Psychological Hx Reported Smoking Status: Former smoker Past Alcohol Use History: Rare Past Drug Use History: None Reported - Past Family History Mother Family Medical History: No Reported History Medications and Allergies Home Medications Medication Instructions Recorded Confirmed Type Aspirin 81 mg PO HS 08/27/17 07/06/24 History Pantoprazole Sodium 40 mg PO BID 08/27/17 07/06/24 History amLODIPine BESYLATE [Norvasc] 2.5 mg PO DAILY 08/27/17 07/06/24 History carvediloL [Coreg] 25 mg PO BID 08/27/17 07/06/24 History Carbidopa-Levodopa 25-100 mg 1 tab PO TID 07/20/20 07/06/24 History [Sinemet 25-100] DULoxetine HCL [Cymbalta] 30 mg PO DAILY 10/25/22 07/06/24 History Gabapentin 300 mg PO BID 10/25/22 07/06/24 History HYDROcodone/APAP 7.5-325MG [[place] 1 tab PO BID-W/MEALS 10/25/22 07/06/24 History 7.5-325] Hydroxyurea 500 mg PO QAM 10/25/22 07/06/24 History rOPINIRole HCL [Requip] 0.5 mg PO HS 10/25/22 07/06/24 History Valsartan/Hydrochlorothiazide 1 tab PO DAILY 09/17/23 07/06/24 History [Valsartan-Hctz 320-25 mg Tab] Dapagliflozin Propanediol [Farxiga] 10 mg PO DAILY 10/22/23 07/06/24 History Hydroxyurea 500 mg PO MOTUWETH@2100 10/22/23 07/06/24 History Multivit-Minerals/FA/Lycopene 1 each PO DAILY 04/14/24 07/06/24 History [One-A-Day Men's 50 Plus Tablet] Pravastatin Sodium [Pravachol] 40 mg PO HS 04/14/24 07/06/24 History Turmeric Root Extract [Turmeric] 500 mg PO HS 04/14/24 07/06/24 History Semaglutide [Ozempic] 0.5 mg SQ MO 07/06/24 07/06/24 History Sennosides/Docusate Sodium 2 tab PO DAILY PRN 07/06/24 07/06/24 History [Senna-S 8.6-50 mg Tablet] Tamsulosin [Flomax] 0.4 mg PO DAILY 07/06/24 07/06/24 History Allergies Allergy/AdvReac Type Severity Reaction Status Date / Time No Known Allergies Allergy Verified 07/06/24 09:22 Surgical - Exam Vital Signs Temp Pulse Resp BP Pulse Ox 98.7 F 94 18 173/97 97 07/05/24 22:16 07/05/24 22:16 07/05/24 22:16 07/05/24 22:16 07/05/24 22:16 Patient Seen Date: 07/06/24 Patient Seen Time: 14:20 - General well developed, well nourished, no distress - Eyes PERRL, normal ocular movement - ENT normal pinna, normal nares - Respiratory normal expansion, normal respiratory effort - Cardiovascular Rhythm: regular - Abdomen Abdomen: soft, non tender - Integumentary no rash - Psychiatric oriented to time, oriented to person, oriented to place, speech is normal Palpable PT pulse bilaterally Right thigh and knee wrapped with Campos wrap. Positive tenderness to palpation. Some edema. Difficult with full range of motion at the knee. Is able to move at the ankle and hip. Results CTA of the right leg demonstrates large hematoma with active extravasation within the muscle - Labs 07/05/24 22:20 07/05/24 22:20 Abnormal Lab Results - Last 24 Hours (Table) 07/05/24 07/05/24 Range/Units 22:20 22:20 WBC 13.4 H (3.8-10.6) k/uL RBC 4.25 L (4.30-5.90) m/uL MCV 108.5 H (80.0-100.0) fL MCH 35.6 H (25.0-35.0) pg Neutrophils # 10.2 H (1.3-7.7) k/uL Macrocytosis Marked A Carbon Dioxide 31 H (22-30) mmol/L BUN 24 H (9-20) mg/dL Glucose 139 H (74-99) mg/dL Diabetes panel 07/05/24 Range/Units 22:20 Sodium 138 (137-145) mmol/L Potassium 4.7 (3.5-5.1) mmol/L Chloride 99 (98-107) mmol/L Carbon Dioxide 31 H (22-30) mmol/L BUN 24 H (9-20) mg/dL Creatinine 1.13 (0.66-1.25) mg/dL Glucose 139 H (74-99) mg/dL Calcium 9.3 (8.4-10.2) mg/dL AST 39 (17-59) U/L ALT 14 (4-49) U/L Alkaline Phosphatase 89 (38-126) U/L Total Protein 7.2 (6.3-8.2) g/dL Albumin 4.4 (3.5-5.0) g/dL Calcium panel 07/05/24 Range/Units 22:20 Calcium 9.3 (8.4-10.2) mg/dL Albumin 4.4 (3.5-5.0) g/dL Pituitary panel 07/05/24 Range/Units 22:20 Sodium 138 (137-145) mmol/L Potassium 4.7 (3.5-5.1) mmol/L Chloride 99 (98-107) mmol/L Carbon Dioxide 31 H (22-30) mmol/L BUN 24 H (9-20) mg/dL Creatinine 1.13 (0.66-1.25) mg/dL Glucose 139 H (74-99) mg/dL Calcium 9.3 (8.4-10.2) mg/dL Adrenal panel 07/05/24 Range/Units 22:20 Sodium 138 (137-145) mmol/L Potassium 4.7 (3.5-5.1) mmol/L Chloride 99 (98-107) mmol/L Carbon Dioxide 31 H (22-30) mmol/L BUN 24 H (9-20) mg/dL Creatinine 1.13 (0.66-1.25) mg/dL Glucose 139 H (74-99) mg/dL Calcium 9.3 (8.4-10.2) mg/dL Total Bilirubin 0.7 (0.2-1.3) mg/dL AST 39 (17-59) U/L ALT 14 (4-49) U/L Alkaline Phosphatase 89 (38-126) U/L Total Protein 7.2 (6.3-8.2) g/dL Albumin 4.4 (3.5-5.0) g/dL Assessment and Plan Assessment: Right quadriceps tear with active bleeding Anterior thigh hematoma secondary to quad tear Right knee pain History of right total knee Plan: Reviewed CTA of the right lower extremity in full detail which does demonstrate what appears to be a tear with hematoma and active blush. He is doing well and his vitals have been stable since 1:00 this morning and therefore doubt continued bleeding Agree with compression to the area. No vascular surgical intervention required at this time. Agree with continued monitoring of the H&H which has not been drawn today. Discussed with the nursing staff who will draw the CBC this afternoon. Thank you for the consultation.
[2024-07-06] MEDS: carvediloL 12.5 MG TAB PO SCH (15:36)
[2024-07-06 15:51] LABS: Basophils # (A) 0.1 k/uL (0-0.2); Basophils % (A) 1 %; Eosinophils # (A) 0.2 k/uL (0-0.7); Eosinophils % (A) 1 %; HCT 38.9 % (39.0-53.0); HGB 12.6 gm/dL (13.0-17.5); Hypochromasia Moderate; Lymphocytes # (A) 2.5 k/uL (1.0-4.8); Lymphocytes % (A) 16 %; MCH 35.8 pg (25.0-35.0); MCHC 32.3 g/dL (31.0-37.0); MCV 110.7 fL (80.0-100.0); Macrocytosis Marked; Monocytes # (A) 1.3 k/uL (0-1.0); Monocytes % (A) 9 %; Neutrophils # (A) 10.4 k/uL (1.3-7.7); Neutrophils % (A) 70 %; Platelet Count 266 k/uL (150-450); RBC 3.52 m/uL (4.30-5.90); RDW 14.1 % (11.5-15.5)
[2024-07-06] MEDS: CARBIDOPA-LEVODOPA 25-100 MG 1 EACH TAB PO SCH (16:01)
[2024-07-06] MEDS: PANTOPRAZOLE 40 MG TABLET PO SCH (16:01)
[2024-07-06] MEDS: HYDROXYUREA 500 MG CAP PO SCH (19:41)
[2024-07-06] MEDS: GABAPENTIN 300 MG CAP PO SCH (19:41)
[2024-07-06] MEDS: PRAVASTATIN SODIUM 40 MG TAB PO SCH (19:42)
--- NOTE | 2024-07-07 01:08 | HP ---
HISTORY AND PHYSICAL CHIEF COMPLAINT: Fall and as well as hematoma. HISTORY OF PRESENT ILLNESS: This is a 78-year-old gentleman with a past medical history of multiple medical problems, had a fall while walking down stairs. The patient injured the right knee and apparently the leg caught underneath and the patient had a total knee arthroplasty in April. The patient was presumed to have quadriceps tear and anterior hematoma according to Orthopedic Surgery. The patient is being closely monitored. There is no history of any fever, rigors, or chills at this time. PAST MEDICAL HISTORY: History of DJD, history of hypertension, hyperlipidemia. Rest of the history and rest of the chart is also reviewed. HOME MEDICATIONS: Reviewed include Ozempic. Dose and rest of medications reviewed. ALLERGIES: None. FAMILY HISTORY: No history of heart disease or strokes in the family. SOCIAL HISTORY: Previous history of smoking. REVIEW OF SYSTEMS: A 14-point review of systems is negative except as mentioned earlier. PHYSICAL EXAMINATION: VITAL SIGNS: Pulse 90, blood pressure 99/64, respirations 18. HEENT: Conjunctivae normal. NECK: No JVD. CARDIOVASCULAR: S1. S2. RESPIRATIONS: Breath sounds diminished at the bases. A few scattered rhonchi. ABDOMEN: Soft, nontender. LEGS: Significant pain and swelling on the right leg present. NERVOUS SYSTEM: Nonfocal. LABORATORY DATA: WBC 13.4. ASSESSMENT: 1. Fall and right knee pain with quadriceps tear plus hematoma. 2. Increased WBC. 3. History of right total knee arthroplasty. 4. Hypertension. 5. Hyperlipidemia. 6. Multiple complex medical issues. RECOMMENDATIONS: This is a 78-year-old gentleman with multiple complex medical issues, we will monitor the patient closely. Continue the current medications, and continue symptomatic treatment. Resume the home medications. Pain management. Closely follow with Orthopedic Surgery. Guarded prognosis. Further recommendations to follow. MMODL / IJN: [id number] /
[2024-07-07 04:51] LABS: Basophils # (A) 0.1 k/uL (0-0.2); Basophils % (A) 1 %; Eosinophils # (A) 0.1 k/uL (0-0.7); Eosinophils % (A) 1 %; Hypochromasia Slight; Lymphocytes # (A) 2.2 k/uL (1.0-4.8); Lymphocytes % (A) 18 %; MCH 34.8 pg (25.0-35.0); MCHC 31.6 g/dL (31.0-37.0); Macrocytosis Marked; Mean Platelet Volume 10.2; Monocytes # (A) 1.1 k/uL (0-1.0); Monocytes % (A) 9 %; Neutrophils # (A) 8.5 k/uL (1.3-7.7); Neutrophils % (A) 68 %; Platelet Count 241 k/uL (150-450); RBC 3.44 m/uL (4.30-5.90); RDW 13.9 % (11.5-15.5); WBC 12.4 k/uL (3.8-10.6)
[2024-07-07 04:54] LABS: MCV 110.4 fL (80.0-100.0)
[2024-07-07 05:07] LABS: ALT 12 U/L (4-49); AST 24 U/L (17-59); African American GFR (CKD) >90 (>60 ml/min/1.73 sqM); Albumin 3.7 g/dL (3.5-5.0); Alkaline Phosphatase 75 U/L (38-126); Anion Gap 9 mmol/L; Blood Urea Nitrogen 23 mg/dL (9-20); Calcium 8.5 mg/dL (8.4-10.2); Carbon Dioxide 30 mmol/L (22-30); Chloride 97 mmol/L (98-107); Glucose 120 mg/dL (74-99); Non-African American GFR(CKD) 78 (>60 ml/min/1.73 sqM); Potassium 3.9 mmol/L (3.5-5.1); Sodium 136 mmol/L (137-145); Total Bilirubin 0.7 mg/dL (0.2-1.3); Total Protein 6.1 g/dL (6.3-8.2)
--- NOTE | 2024-07-07 07:53 | P.PN ---
Subjective This is a pleasant 78 years old male with past medical history of multiple medical problems Patient presents because of right knee pain and swelling of the thigh. Patient had CT of the lower extremity with contrast showing 11 x 4.4 cm intramuscular hematoma in the right quadriceps muscle with active contrast extravasation Patient evaluated by orthopedic team who recommend to consult another orthopedic physician in regards to his knee. Patient other than that is awake alert, his right thigh is swollen and warm to touch, pain is 10/10 comes down with pain medication to 7/10 His right thigh looks soft not intense, the suspicion of compartment syndrome is low now but needs continuous monitoring. He has mild leukocytosis at 15,000, hemoglobin 12.6. Vitals stable and patient afebrile, INR 1.1 with BMP and LFT were unremarkable Patient currently kept with supportive care no anticoagulation which are on hold Objective - Vital Signs Vital signs: Vital Signs Temp 97.9 F 07/07/24 06:33 Pulse 90 07/07/24 06:33 Resp 18 07/07/24 06:33 BP 109/67 07/07/24 06:33 Pulse Ox 95 07/07/24 06:33 FiO2 Intake & Output 07/06/24 07/07/24 07/07/24 18:59 06:59 18:59 Intake Total 500 Balance 500 Weight 92.533 kg Intake: Oral 500 Other: Voiding Method Urinal Toilet Urinal # Voids 1 1 - Exam GENERAL: The patient is alert and oriented x3, not in any acute distress. Well developed, well nourished. HEENT: Pupils are round and equally reacting to light. EOMI. No scleral icterus. No conjunctival pallor. Normocephalic, atraumatic. No pharyngeal erythema. No thyromegaly. CARDIOVASCULAR: S1 and S2 present. No murmurs, rubs, or gallops. PULMONARY: Chest is clear to auscultation, no wheezing , no crackles. ABDOMEN: Soft, nontender, nondistended, normoactive bowel sounds. No palpable organomegaly. MUSCULOSKELETAL: No joint swelling or deformity. -EXTREMITIES: No cyanosis, clubbing, or pedal edema. Right thigh swelling warm and mildly tender NEUROLOGICAL: Gross neurological examination did not reveal any focal deficits. SKIN: No rashes. no petechiae. - Labs CBC & Chem 7: 07/07/24 04:20 07/07/24 04:20 Labs: Abnormal Lab Results - Last 24 Hours (Table) 07/06/24 07/07/24 07/07/24 Range/Units 15:36 04:20 04:20 WBC 15.0 H 12.4 H (3.8-10.6) k/uL RBC 3.52 L 3.44 L (4.30-5.90) m/uL Hgb 12.6 L 12.0 L (13.0-17.5) gm/dL Hct 38.9 L 38.0 L (39.0-53.0) % MCV 110.7 H 110.4 H (80.0-100.0) fL MCH 35.8 H (25.0-35.0) pg Neutrophils # 10.4 H 8.5 H (1.3-7.7) k/uL Monocytes # 1.3 H 1.1 H (0-1.0) k/uL Macrocytosis Marked A Marked A Sodium 136 L (137-145) mmol/L Chloride 97 L (98-107) mmol/L BUN 23 H (9-20) mg/dL Glucose 120 H (74-99) mg/dL Total Protein 6.1 L (6.3-8.2) g/dL Assessment and Plan Assessment: Assessment: Right knee pain Right quadriceps hematoma 11 x 4.4 cm Plan: Plan: Continue with pain management Orthopedic team following closely continue with normal saline 75 mL/h Vascular surgery evaluation as well Monitor for neurovascular compromise Further recommendation based on the clinical course Avoid anticoagulation and blood thinners or NSAIDs GI prophylaxis: Mechanical PT/OT evaluation
[2024-07-07] MEDS: DULoxetine HCL 30 MG CAPSULE.DR PO SCH (08:54)
[2024-07-07] MEDS: MULTIVITAMINS, THERA 1 EACH TAB PO SCH (08:54)
[2024-07-07] MEDS: hydroCHLOROthiazide 25 MG TAB PO SCH (08:54)
[2024-07-07] MEDS: TAMSULOSIN 0.4 MG CAP.ER.24H PO SCH (08:54)
[2024-07-07] MEDS: VALSARTAN 160 MG TAB PO SCH (08:55)
[2024-07-07] MEDS: DAPAGLIFLOZIN PROPANEDIOL 10 MG TABLET PO SCH (08:55)
[2024-07-07] MEDS: amLODIPine 2.5 MG TAB PO SCH (08:56)
[2024-07-07] MEDS: HYDROXYUREA 500 MG CAP PO SCH (08:57)
[2024-07-07] MEDS: HYDROcodone/APAP 5-325MG 1 EACH TAB PO PRN (09:33)
--- NOTE | 2024-07-07 13:24 | P.PN ---
Subjective Progress Note Date: 07/07/24 Principal diagnosis: Right Quad rupture Patient seen and examined this morning. Patient is resting comfortably in bed. Immobilizer is intact to the right knee, edema has improved since admission. Patient does report that his pain is managed on current regimen. Informed patient that he has the option of being transferred to [facility] for treatment, although surgery is not emergent, or he may discharge home and follow up with Dr. Palmer outpatient o schedule surgery. Spouse is present at bedside and states they will be more comfortable waiting at home. Objective - Vital Signs Vital signs: Vital Signs Temp 98.1 F 07/07/24 07:09 Pulse 97 07/07/24 07:09 Resp 18 07/07/24 07:09 BP 151/87 07/07/24 07:09 Pulse Ox 95 07/07/24 07:09 FiO2 Intake & Output 07/06/24 07/07/24 07/07/24 18:59 06:59 18:59 Intake Total 500 Balance 500 Weight 92.533 kg Intake: Oral 500 Other: Voiding Method Urinal Toilet Urinal # Voids 1 1 - Exam Osteopathic Statement: *. No significant issues noted on an osteopathic structural exam other than those noted in the History and Physical/Consult. AOX3 NAD VSS, Afeb TTP about the right knee which is visibly swollen and bruised, although the edema has improved since admission. Pt is unable to straight leg raise at this time due to presumed quad T. tear. He has FROM of remaining joints that is non painful 2/4 distal pulses compartment soft and compressive SILT L2-S1 5/5 DF/PF/EHL/FHL b/ LE - Labs CBC & Chem 7: 07/07/24 04:20 07/07/24 04:20 Labs: Abnormal Lab Results - Last 24 Hours (Table) 07/06/24 07/07/24 07/07/24 Range/Units 15:36 04:20 04:20 WBC 15.0 H 12.4 H (3.8-10.6) k/uL RBC 3.52 L 3.44 L (4.30-5.90) m/uL Hgb 12.6 L 12.0 L (13.0-17.5) gm/dL Hct 38.9 L 38.0 L (39.0-53.0) % MCV 110.7 H 110.4 H (80.0-100.0) fL MCH 35.8 H (25.0-35.0) pg Neutrophils # 10.4 H 8.5 H (1.3-7.7) k/uL Monocytes # 1.3 H 1.1 H (0-1.0) k/uL Macrocytosis Marked A Marked A Sodium 136 L (137-145) mmol/L Chloride 97 L (98-107) mmol/L BUN 23 H (9-20) mg/dL Glucose 120 H (74-99) mg/dL Total Protein 6.1 L (6.3-8.2) g/dL Assessment and Plan Assessment: 78 yo male s/p R TKA in OCT with presumed quad T. tear and anterior hematoma Right knee pain s/p ffs Plan: At this time we do not recommend any emergent/urgent orthopedic surgical intervention. Patient may follow-up with Dr. Montague first available. Orthopedics is signing off at this time. Please do not hesitate to contact us for any further questions. 2. Appreciate medical management 3. Pain management -[place] and Gabapentin, Utilize ice therapy 20min every hour as needed. 4. GI prophylaxis - Senna 5. PT/OT - NWB RLE 6. Appreciate consult.
[2024-07-08] MEDS: polyethylene glycoL 3350 17 GM POWD.PACK PO STA (10:28)
--- NOTE | 2024-07-08 11:11 | P.PN ---
Subjective This is a pleasant 78 years old male with past medical history of multiple medical problems Patient presents because of right knee pain and swelling of the thigh. Patient had CT of the lower extremity with contrast showing 11 x 4.4 cm intramuscular hematoma in the right quadriceps muscle with active contrast extravasation Patient evaluated by orthopedic team who recommend to consult another orthopedic physician in regards to his knee. Patient other than that is awake alert, his right thigh is swollen and warm to touch, pain is 10/10 comes down with pain medication to 7/10 His right thigh looks soft not intense, the suspicion of compartment syndrome is low now but needs continuous monitoring. He has mild leukocytosis at 15,000, hemoglobin 12.6. Vitals stable and patient afebrile, INR 1.1 with BMP and LFT were unremarkable Patient currently kept with supportive care no anticoagulation which are on hold 07/08/2024 Patient still complaining from right thigh pain, however his pain is minimal at rest increased with movement. Hemoglobin looks stable at 12.0 from 12.6 yesterday. On examination swelling looks slightly better. Orthopedic team on the case, there was concerns for transferring the patient to [facility]. We are going to double check with their service about the plan. Vascular surgery input is appreciated, it looks bleeding is stopped per their note and will continue monitoring hemoglobin Give MiraLAX for constipation. On Senokot Objective - Vital Signs Vital signs: Vital Signs Temp 97.6 F 07/08/24 07:14 Pulse 91 07/08/24 11:02 Resp 16 07/08/24 11:02 BP 110/69 07/08/24 07:14 Pulse Ox 98 07/08/24 07:14 FiO2 Intake & Output 07/07/24 07/08/24 07/08/24 18:59 06:59 18:59 Intake Total 250 Output Total 400 Balance -400 250 Intake: Oral 250 Output: Urine 400 Other: Voiding Method Urinal Urinal Urinal # Voids 3 3 - Exam GENERAL: The patient is alert and oriented x3, not in any acute distress. Well developed, well nourished. HEENT: Pupils are round and equally reacting to light. EOMI. No scleral icterus. No conjunctival pallor. Normocephalic, atraumatic. No pharyngeal erythema. No thyromegaly. CARDIOVASCULAR: S1 and S2 present. No murmurs, rubs, or gallops. PULMONARY: Chest is clear to auscultation, no wheezing , no crackles. ABDOMEN: Soft, nontender, nondistended, normoactive bowel sounds. No palpable organomegaly. MUSCULOSKELETAL: No joint swelling or deformity. -EXTREMITIES: No cyanosis, clubbing, or pedal edema. Right thigh swelling warm and mildly tender NEUROLOGICAL: Gross neurological examination did not reveal any focal deficits. SKIN: No rashes. no petechiae. - Labs CBC & Chem 7: 07/07/24 04:20 07/07/24 04:20 Assessment and Plan Assessment: Assessment: Right knee pain Right quadriceps hematoma 11 x 4.4 cm Plan: Plan: Continue with pain management Orthopedic team following closely. We will check with orthopedic team if they want to transfer the patient to tertiary center like [facility], otherwise we will keep monitoring hemoglobin for now Discontinue normal saline 75 mL/h Vascular surgery evaluation as well Monitor for neurovascular compromise Further recommendation based on the clinical course Avoid anticoagulation and blood thinners or NSAIDs GI prophylaxis: Mechanical PT/OT evaluation
--- NOTE | 2024-07-08 12:11 | P.PN ---
Progress Note - Text Progress Note Date: 07/08/24 Patient is cleared from a orthopedic standpoint to be discharged home with the following discharge instructions that have been placed in the discharge plan. Patient transfer to [facility] is not an option at this time.
[2024-07-08] MEDS: SENNOSIDES-DOCUSATE SODIUM 1 EACH TAB PO PRN (12:50)
--- NOTE | 2024-07-08 14:36 | P.PN ---
Progress Note - Text Progress Note Date: 07/08/[address] Richards as well as Dr. Edvin Smith and Dr. Driver at [facility] as well as Dr. Escobar. Pt has a quad tendon tear around a TKA with hematoma. He is stable and improving as far as swelling and mobility. Discussed case and at this time transfer to [facility] unlikely as this is a non emergent case. Pt was OK with going home and follow up with Dr. Driver or Jd in office this next week for treatment as Dr. Hager is not available at this time. Ortho recommends DC home with NWB RLE in knee immobilizer -Ice rest elevation for pain and swelling control -Campos wrap for compressive wrap and swelling. -Pain control as needed -OK to shower without brace, still NWB -Needs to follow up MARCELLO with [facility] for treatment.
[2024-07-09] MEDS: HYDROmorphone 0.5 MG/0.5 ML SYRINGE IVP PRN (00:36)
[2024-07-09] MEDS ORDERED: bisacodyL 10 MG SUPP RECTAL PRN (12:36)
[2024-07-09] MEDS: LACTULOSE 20 GM/30 ML CUP PO SCH (12:38)
[2024-07-10 08:14] LABS: HCT 34.1 % (39.0-53.0); HGB 11.1 gm/dL (13.0-17.5); MCH 35.2 pg (25.0-35.0); MCHC 32.6 g/dL (31.0-37.0); MCV 108.1 fL (80.0-100.0); Macrocytosis Moderate; Mean Platelet Volume 10.2; Platelet Count 252 k/uL (150-450); RBC 3.15 m/uL (4.30-5.90); RDW 14.1 % (11.5-15.5)
[2024-07-10 08:19] LABS: ALT 11 U/L (4-49); AST 27 U/L (17-59); African American GFR (CKD) 82 (>60 ml/min/1.73 sqM); Albumin 3.7 g/dL (3.5-5.0); Alkaline Phosphatase 76 U/L (38-126); Anion Gap 6 mmol/L; Blood Urea Nitrogen 24 mg/dL (9-20); Calcium 8.6 mg/dL (8.4-10.2); Carbon Dioxide 33 mmol/L (22-30); Chloride 96 mmol/L (98-107); Glucose 123 mg/dL (74-99); Non-African American GFR(CKD) 71 (>60 ml/min/1.73 sqM); Potassium 3.9 mmol/L (3.5-5.1); Sodium 135 mmol/L (137-145); Total Bilirubin 1.2 mg/dL (0.2-1.3); Total Protein 6.3 g/dL (6.3-8.2)
--- NOTE | 2024-07-10 11:07 | P.DS ---
Providers Date of admission: 07/06/24 03:44 Expected date of discharge: 07/10/24 Attending physician: Estuardo Paul Consults: 07/06/24 03:44 Consult Physician Routine Consulting Provider: Paula Diego Consult Reason/Comments: Quad hematoma with extravasation Do you want consulting provider notified?: Yes Consult Physician Routine Consulting Provider: Eber Hodgson Consult Reason/Comments: Knee injury/hematoma Do you want consulting provider notified?: Already Contacted Primary care physician: Estuardo Paul Hospital Course: HISTORY OF PRESENT ILLNESS This is a 78-year-old male patient with past medical history of osteoarthritis, hypertension, mixed hyperlipidemia, Parkinson's disease, GERD, diabetes mellitus type 2, anxiety disorder. Patient was in his home trying to change a light bulb and ended up tripping and falling causing his right leg to catch underneath him and he fell directly onto his knees. He was unable to ambulate after this happened and could not lift his legs. He had severe swelling after the fall and he ended up coming into the emergency center for further evaluation. No pain in his hips or ankles. He does have history of TKA in April 2024. Patient was found to have a large anterior hematoma just proximal to the patella. Large hematoma however anteriorly correlates with exam. Patient was seen by orthopedic service with recommendations for nonweightbearing on the right lower extremity with knee immobilizer, ice, compression wrap, pain control and avoid anticoagulations. Patient was also seen by vascular surgery. Patient was also found to have a quad tendon tear around the TKA with hematoma. Orthopedics discussed the case with Drs. Smith and Neisha at [facility] as well as Dr. Esocbar. Plan is for patient to follow-up outpatient with orthopedics at [facility]. Patient has been evaluated by PT and OT with recommendations for subacute rehab. Arrangements are being made for patient to transfer to [facility] for subacute rehab. Patient will be discharged in stable condition once all arrangements are completed. Patient has been hemodynamically stable. Hemoglobin this morning is 11.1, WBC 14, BUN 24, creatinine 1.01. DISCHARGE DIAGNOSES: 1. Quadricep tendon tear around previous TKA with hematoma. 2. Hypertension. 3. Hyperlipidemia. 4. Parkinson's disease. 5. GERD. 6. Diabetes mellitus type 2. 7. Osteoarthritis. Patient will be discharged to [facility] once all arrangements are completed. Greater than 35 minutes was utilized and coordinating patient's discharge. Impression and plan of care have been directed as dictated by the signing physician. Norma Briseno nurse practitioner acting as scribe for signing physician. Patient Condition at Discharge: Stable Plan - Discharge Summary New Discharge Prescriptions: New HYDROcodone/APAP 5-325MG [[place] 5-325] 1 tab PO Q6HR PRN #30 tab PRN Reason: Pain Lactulose [Cephulac] 20 gm PO BID ml Acetaminophen Tab [Tylenol] 650 mg PO Q6HR PRN tab PRN Reason: Mild Pain Or Fever > 100.5 Continue Pantoprazole Sodium 40 mg PO BID amLODIPine BESYLATE [Norvasc] 2.5 mg PO DAILY carvediloL [Coreg*] 25 mg PO BID Carbidopa-Levodopa 25-100 mg [Sinemet 25-100 mg] 1 tab PO TID Gabapentin 300 mg PO BID DULoxetine HCL [Cymbalta] 30 mg PO DAILY HYDROcodone/APAP 7.5-325MG [[place] 7.5-325] 1 tab PO BID-W/MEALS rOPINIRole HCL [Requip] 0.5 mg PO HS Hydroxyurea 500 mg PO MOTUWETH@2100 Dapagliflozin Propanediol [Farxiga] 10 mg PO DAILY Pravastatin Sodium [Pravachol] 40 mg PO HS Hydroxyurea 500 mg PO QAM Valsartan/Hydrochlorothiazide [Valsartan-Hctz 320-25 mg Tab] 1 tab PO DAILY Multivit-Minerals/FA/Lycopene [One-A-Day Men's 50 Plus Tablet] 1 each PO DAILY Turmeric Root Extract [Turmeric] 500 mg PO HS Tamsulosin [Flomax] 0.4 mg PO DAILY Sennosides/Docusate Sodium [Senna-S 8.6-50 mg Tablet] 2 tab PO DAILY PRN PRN Reason: Constipation Semaglutide [Ozempic] 0.5 mg SQ MO Zinc Gluconate [Zinc] 50 mg PO DAILY Ferrous Sulfate [Iron (65 MG Elemental)] 325 mg PO DAILY Discontinued Aspirin 81 mg PO HS Discharge Medication List Pantoprazole Sodium 40 mg PO BID 08/27/17 [History] amLODIPine BESYLATE [Norvasc] 2.5 mg PO DAILY 08/27/17 [History] carvediloL [Coreg*] 25 mg PO BID 08/27/17 [History] Carbidopa-Levodopa 25-100 mg [Sinemet 25-100 mg] 1 tab PO TID 07/20/20 [History] DULoxetine HCL [Cymbalta] 30 mg PO DAILY 10/25/22 [History] Gabapentin 300 mg PO BID 10/25/22 [History] HYDROcodone/APAP 7.5-325MG [[place] 7.5-325] 1 tab PO BID-W/MEALS 10/25/22 [History] Hydroxyurea 500 mg PO QAM 10/25/22 [History] rOPINIRole HCL [Requip] 0.5 mg PO HS 10/25/22 [History] Valsartan/Hydrochlorothiazide [Valsartan-Hctz 320-25 mg Tab] 1 tab PO DAILY 09/17/23 [History] Dapagliflozin Propanediol [Farxiga] 10 mg PO DAILY 10/22/23 [History] Hydroxyurea 500 mg PO MOTUWETH@2100 10/22/23 [History] Multivit-Minerals/FA/Lycopene [One-A-Day Men's 50 Plus Tablet] 1 each PO DAILY 04/14/24 [History] Pravastatin Sodium [Pravachol] 40 mg PO HS 04/14/24 [History] Turmeric Root Extract [Turmeric] 500 mg PO HS 04/14/24 [History] Ferrous Sulfate [Iron (65 MG Elemental)] 325 mg PO DAILY 07/06/24 [History] Semaglutide [Ozempic] 0.5 mg SQ MO 07/06/24 [History] Sennosides/Docusate Sodium [Senna-S 8.6-50 mg Tablet] 2 tab PO DAILY PRN 07/06/24 [History] Tamsulosin [Flomax] 0.4 mg PO DAILY 07/06/24 [History] Zinc Gluconate [Zinc] 50 mg PO DAILY 07/06/24 [History] HYDROcodone/APAP 5-325MG [[place] 5-325] 1 tab PO Q6HR PRN #30 tab 07/07/24 [Rx] Acetaminophen Tab [Tylenol] 650 mg PO Q6HR PRN tab 07/10/24 [Rx] Lactulose [Cephulac] 20 gm PO BID ml 07/10/24 [Rx] Follow up Appointment(s)/Referral(s): Humberto,Emad, MD [Primary Care Provider] - 1-2 days Adama Palmer MD [REFERRING] - 1-2 Days Activity/Diet/Wound Care/Special Instructions: Non-weight bearing left lower extremity. Immobilizer on at all times, may loosen straps to place ice packs when patient is sitting in chair with leg elevated. Take medications as directed. Any questions please call the office at [phone] If being home becomes overwhelming, please take patient to [facility] for further treatment. Discharge Disposition: HOME SELF-CARE
--- NOTE | 2024-07-10 16:29 | P.PN ---
Subjective Progress Note Date: 07/09/24 HISTORY OF PRESENT ILLNESS: This is a pleasant 78 years old male with past medical history of multiple me dical problems Patient presents because of right knee pain and swelling of the thigh. Patient had CT of the lower extremity with contrast showing 11 x 4.4 cm intramuscular hematoma in the right quadriceps muscle with active contrast extravasation Patient evaluated by orthopedic team who recommend to consult another orthopedic physician in regards to his knee. Patient other than that is awake alert, his right thigh is swollen and warm to touch, pain is 10/10 comes down with pain medication to 7/10 His right thigh looks soft not intense, the suspicion of compartment syndrome is low now but needs continuous monitoring. He has mild leukocytosis at 15,000, hemoglobin 12.6. Vitals stable and patient afebrile, INR 1.1 with BMP and LFT were unremarkable Patient currently kept with supportive care no anticoagulation which are on hold 07/08/2024 Patient still complaining from right thigh pain, however his pain is minimal at rest increased with movement. Hemoglobin looks stable at 12.0 from 12.6 yesterday. On examination swelling looks slightly better. Orthopedic team on the case, there was concerns for transferring the patient to [facility]. We are going to double check with their service about the plan. Vascular surgery input is appreciated, it looks bleeding is stopped per their n ote and will continue monitoring hemoglobin Give MiraLAX for constipation. On Senokot 07/09: Patient is laying down in bed in no apparent distress, he complains of increased pain in the right knee, he suffered from right quad tendon rupture with significant hematoma evaluated the side does appear to have a water blister that was denuded and a lot of serous liquid came out, the pressure was less, and ABD was placed on, but Campos wrap was placed as well and then patient was placed back in immobilizer, I had a long conversation with the patient and his and his daughter at the bedside, and they were all in agreement for the patient to go to [facility] for subacute rehabilitation as the patient is not able to care for himself by his at his home I spoke with the upper caser and that she will be working on transferring the patient to [facility] hopefully in the next 24 hours, I will try to get the patient as an outpatient to see Dr. Driver through his office I contacted his office however the office is closed only for emergency, we will try to get a hold of them again on Saturday morning. REVIEW OF SYSTEMS: Constitutional: No documented fever, no chills, no night sweats. No weight patience nge. No weakness, fatigue or lethargy. No daytime sleepiness. EENT: No headache. No blurred vision or double vision, no loss of vision. No loss of Hearing, no ringing in the ears, no dizziness. No nasal drainage or congestion. No epistaxis. No sore throat. Lungs: No shortness of breath, no cough, no sputum production. No wheezing. Reports dyspnea with activity. Cardiovascular: No chest pain, no lower extremity edema. No palpitations. No paroxysmal nocturnal dyspnea. No orthopnea. No lightheadedness or dizziness. No syncopal episodes. Abdominal: Reports abdominal pain. No nausea, vomiting. No diarrhea. Positive for constipation. No bloody or tarry stools reports loss of appetite. Genitourinary: No dysuria, increased frequency, urgency. No urinary retention. Musculoskeletal: No myalgias. Positive for muscle weakness, positive for gait dysfunction, no frequent falls. Positive for back pain. No neck pain. Positive for right knee pain. Integumentary: Water blister opened on the side of the knee with serous drainage, no lesions. No rash or pruritus. No unusual bruising. No change in hair or nails. Neurologic: No aphasia. No facial droop. No change in mentation. No head injury. No headache. No paralysis. No paresthesia. Psychiatric: No depression. No anxiety. No mood swings. Endocrine: No abnormal blood sugars. No weight change. PHYSICAL EXAMINATION: General: HEENT: Head is atraumatic, normocephalic, pupils were equal round reactive to light and recommendation, extraocular muscle movement were intact, sclera nonicteric, conjunctivae were pale, mucous membranes of the mouth are somewhat dry. Neck: Supple, no JVP, normal carotid upstroke bilaterally, no lymphadenopathy. Chest: Decreased breath sounds at the bases, few rhonchi, no expiratory wheezes, no chest wall tenderness, no intercostal retractions. Heart: First heart sound is normal, second heart sounds normal there is systolic ejection murmur 2 over systolic in the left sternal border. Abdomen: Soft, nontender, nondistended, positive bowel sounds. Extremities: There is no edema no calf tenderness DP +2 bilaterally, the right knee is in immobilizer under that there is significant hematoma to the right knee, due to a tendon rupture with a fluid-filled blister that got ruptured. Neurologic examination: Patient is awake alert and oriented x3, cranial nerves II-12 appear grossly intact, muscle power were 4out of 5 in upper extremities and 4 out of 5 in the left lower extremity could not put any pressure on the right lower extremity. ASSESSMENT AND PLAN: 1. 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 Orthopedic surgery recommended for the patient to be evaluated at [facility] center for evaluation none weightbearing to the right lower extremity immobilizer and follow-up with trauma surgery as soon as possible hopefully patient can be discharged and follow-up as an outpatient. 2. Hypertension and hypertensive cardiovascular disease. Continue patient on amlodipine 2.5 mg once every day, carvedilol 25 mg orally twice every day, continue Diovan 320/25 mg orally once every day monitor the patient blood pressure very closely. 3. Mixed hyperlipidemia. Continue pravastatin 40 mg at bedtime, monitor lipid panel, keep LDL 55-70. 4. Diabetes mellitus type 2. Currently on sliding scale insulin, continue Farxiga 10 mg once every day, hold off Mounjaro while he is in the hospital, for the next week or so to avoid aspiration, monitor the patient blood glucose level before each meal and at bedtime. 5. Diabetic polyneuropathy. Continue gabapentin 300 mg orally twice every day, continue patient on Cymbalta 30 mg once every day, monitor the patient very closely. 6. Restless leg syndrome continue ropinirole 0.5 mg at bedtime. 7. Parkinson disease continue patient on Sinemet 25/100 mg 1 tablet orally 3 times every day. 8. Osteoarthritis. Continue current pain management. 9. Enlarged prostate. Monitor for urinary retention. on Flomax 0.4 mg orally once every day. 10. DVT prophylaxis. Patient will be started on Lovenox 40 mg subcutaneous every 24 hours. 11. GERD with esophagitis. Continue Protonix 40 mg once every day. 12. social group worker consultation for discharge planning likely to [facility]. 13. We will make an arrangement as an outpatient for the patient to be seen by Dr. Driver trauma surgeon at [facility] for a right quad tendon rupture. Objective - Vital Signs Vital signs: Vital Signs Temp 97.9 F 07/09/24 02:00 Pulse 71 07/09/24 02:00 Resp 16 07/09/24 02:00 BP 115/68 07/09/24 02:00 Pulse Ox 94 L 07/09/24 02:00 FiO2 Intake & Output 07/08/24 07/08/24 07/09/24 06:59 18:59 06:59 Intake Total 250 200 400 Balance 250 200 400 Intake: Oral 250 200 400 Other: Voiding Method Urinal Urinal Urinal # Voids 3 2 - Labs CBC & Chem 7: 07/10/24 07:37 07/10/24 07:37
--- NOTE | 2024-07-10 17:42 | P.PN ---
Subjective Progress Note Date: 07/10/24 HISTORY OF PRESENT ILLNESS: This is a pleasant 78 years old male with past medical history of multiple me dical problems Patient presents because of right knee pain and swelling of the thigh. Patient had CT of the lower extremity with contrast showing 11 x 4.4 cm intramuscular hematoma in the right quadriceps muscle with active contrast extravasation Patient evaluated by orthopedic team who recommend to consult another orthopedic physician in regards to his knee. Patient other than that is awake alert, his right thigh is swollen and warm to touch, pain is 10/10 comes down with pain medication to 7/10 His right thigh looks soft not intense, the suspicion of compartment syndrome is low now but needs continuous monitoring. He has mild leukocytosis at 15,000, hemoglobin 12.6. Vitals stable and patient afebrile, INR 1.1 with BMP and LFT were unremarkable Patient currently kept with supportive care no anticoagulation which are on hold 07/08/2024 Patient still complaining from right thigh pain, however his pain is minimal at rest increased with movement. Hemoglobin looks stable at 12.0 from 12.6 yesterday. On examination swelling looks slightly better. Orthopedic team on the case, there was concerns for transferring the patient to [facility]. We are going to double check with their service about the plan. Vascular surgery input is appreciated, it looks bleeding is stopped per their n ote and will continue monitoring hemoglobin Give MiraLAX for constipation. On Senokot 07/09: Patient is laying down in bed in no apparent distress, he complains of increased pain in the right knee, he suffered from right quad tendon rupture with significant hematoma evaluated the side does appear to have a water blister that was denuded and a lot of serous liquid came out, the pressure was less, and ABD was placed on, but Campos wrap was placed as well and then patient was placed back in immobilizer, I had a long conversation with the patient and his and his daughter at the bedside, and they were all in agreement for the patient to go to [facility] for subacute rehabilitation as the patient is not able to care for himself by his at his home I spoke with the vocational case manager and that she will be working on transferring the patient to [facility] hopefully in the next 24 hours, I will try to get the patient as an outpatient to see Dr. Driver through his office I contacted his office however the office is closed only for emergency, we will try to get a hold of them again on Saturday morning. 07/10: Patient is doing better today, he is in better spirits, he has no chest pain, shortness of breath, he has no abdominal pain, nausea vomiting or diarrhea, he did have a good bowel movement yesterday, he continues to have some pain in the right knee, he is not allowed to put any pressure on the right lower extremity, he continues to be in immobilizer, we will follow-up with the patient very closely laboratory evaluation were reviewed, increase oral intake of fluid, patient will likely be discharged tomorrow tomorrow morning, and follow-up with Dr. Driver as an outpatient hopefully sometimes next week REVIEW OF SYSTEMS: Constitutional: No documented fever, no chills, no night sweats. No weight change. No weakness, fatigue or lethargy. No daytime sleepiness. EENT: No headache. No blurred vision or double vision, no loss of vision. No loss of Hearing, no ringing in the ears, no dizziness. No nasal drainage or congestion. No epistaxis. No sore throat. Lungs: No shortness of breath, no cough, no sputum production. No wheezing. Reports dyspnea with activity. Cardiovascular: No chest pain, no lower extremity edema. No palpitations. No paroxysmal nocturnal dyspnea. No orthopnea. No lightheadedness or dizziness. No syncopal episodes. Abdominal: Reports abdominal pain. No nausea, vomiting. No diarrhea. Positive for constipation. No bloody or tarry stools reports loss of appetite. Genitourinary: No dysuria, increased frequency, urgency. No urinary retention. Musculoskeletal: No myalgias. Positive for muscle weakness, positive for gait dysfunction, no frequent falls. Positive for back pain. No neck pain. Positive for right knee pain. Integumentary: Water blister opened on the side of the knee with serous drainage, no lesions. No rash or pruritus. No unusual bruising. No change in hair or nails. Neurologic: No aphasia. No facial droop. No change in mentation. No head injury. No headache. No paralysis. No paresthesia. Psychiatric: No depression. No anxiety. No mood swings. Endocrine: No abnormal blood sugars. No weight change. PHYSICAL EXAMINATION: General: 78-year-old male laying down in bed in no apparent distress HEENT: Head is atraumatic, normocephalic, pupils were equal round reactive to light and recommendation, extraocular muscle movement were intact, sclera nonicteric, conjunctivae were pale, mucous membranes of the mouth are somewhat dry. Neck: Supple, no JVP, normal carotid upstroke bilaterally, no lymphadenopathy. Chest: Decreased breath sounds at the bases, few rhonchi, no expiratory wheezes, no chest wall tenderness, no intercostal retractions. Heart: First heart sound is normal, second heart sounds normal there is systolic ejection murmur 2 over systolic in the left sternal border. Abdomen: Soft, nontender, nondistended, positive bowel sounds. Extremities: There is no edema no calf tenderness DP +2 bilaterally, the right knee is in immobilizer under that there is significant hematoma to the right knee, due to a tendon rupture with a fluid-filled blister that got ruptured. Neurologic examination: Patient is awake alert and oriented x3, cranial nerves II-12 appear grossly intact, muscle power were 4out of 5 in upper extremities and 4 out of 5 in the left lower extremity could not put any pressure on the right lower extremity. ASSESSMENT AND PLAN: 1. 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 Orthopedic surgery recommended for the patient to be evaluated at [facility] trauma center for evaluation none weightbearing to the right lower extremity immobilizer and follow-up with trauma surgery as soon as possible hopefully patient can be discharged and follow-up as an outpatient. 2. Hypertension and hypertensive cardiovascular disease. Continue patient on amlodipine 2.5 mg once every day, carvedilol 25 mg orally twice every day, continue Diovan 320/25 mg orally once every day monitor the patient blood pressure very closely. 3. Mixed hyperlipidemia. Continue pravastatin 40 mg at bedtime, monitor lipid panel, keep LDL 55-70. 4. Diabetes mellitus type 2. Currently on sliding scale insulin, continue Farxiga 10 mg once every day, hold off Mounjaro while he is in the hospital, for the next week or so to avoid aspiration, monitor the patient blood glucose level before each meal and at bedtime. 5. Diabetic polyneuropathy. Continue gabapentin 300 mg orally twice every day, continue patient on Cymbalta 30 mg once every day, monitor the patient very closely. 6. Restless leg syndrome continue ropinirole 0.5 mg at bedtime. 7. Parkinson disease continue patient on Sinemet 25/100 mg 1 tablet orally 3 times every day. 8. Osteoarthritis. Continue current pain management. 9. Enlarged prostate. Monitor for urinary retention. on Flomax 0.4 mg orally once every day. 10. DVT prophylaxis. Patient will be started on Lovenox 40 mg subcutaneous every 24 hours. 11. GERD with esophagitis. Continue Protonix 40 mg once every day. 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 13. We will make an arrangement as an outpatient for the patient to be seen by Dr. Driver trauma surgeon at [facility] for a right quad tendon rupture. Objective - Vital Signs Vital signs: Vital Signs Temp 98.5 F 07/10/24 15:00 Pulse 74 07/10/24 15:00 Resp 17 07/10/24 15:00 BP 123/71 07/10/24 15:00 Pulse Ox 96 07/10/24 15:00 FiO2 Intake & Output 07/09/24 07/10/24 07/10/24 18:59 06:59 18:59 Intake Total 200 20 350 Balance 200 20 350 Intake: IV 20 Invasive Line 2 20 Oral 200 350 Other: Voiding Method Urinal Toilet # Voids 1 1 # Bowel Movements 1 - Labs CBC & Chem 7: 07/10/24 07:37 07/10/24 07:37 Labs: Abnormal Lab Results - Last 24 Hours (Table) 07/10/24 07/10/24 Range/Units 07:37 07:37 WBC 14.0 H (3.8-10.6) k/uL RBC 3.15 L (4.30-5.90) m/uL Hgb 11.1 L (13.0-17.5) gm/dL Hct 34.1 L (39.0-53.0) % MCV 108.1 H (80.0-100.0) fL MCH 35.2 H (25.0-35.0) pg Sodium 135 L (137-145) mmol/L Chloride 96 L (98-107) mmol/L Carbon Dioxide 33 H (22-30) mmol/L BUN 24 H (9-20) mg/dL Glucose 123 H (74-99) mg/dL
[2024-07-10] MEDS: ENOXAPARIN 40 MG/0.4 ML SYRINGE SQ SCH (18:15)
[2024-07-11 06:30] VITALS: BP 119/65; PULSE 64; RESP 16; TEMP 98.3
== END 2024-07-11 13:12 ==
LOC: EC 22:14 → 4SSUR 07-06 03:44 → 1SOBS 07-06 07:10 → 4SSUR 07-10 18:00
PROVIDERS: ADMIT Internal Medicine; ATTEND Internal Medicine
DX: M96.840 Postprocedural hematoma of a musculoskeletal structure following a musculoskeletal system procedure (principal); Y83.1 Surgical operation with implant of artificial internal device as the cause of abnormal reaction of the patient, or of later complication, without mention of misadventure at the time of the procedure; S76.111A Strain of right quadriceps muscle, fascia and tendon, initial encounter; W18.30XA Fall on same level, unspecified, initial encounter; E78.2 Mixed hyperlipidemia; K21.00 Gastro-esophageal reflux disease with esophagitis, without bleeding; I11.9 Hypertensive heart disease without heart failure; E11.42 Type 2 diabetes mellitus with diabetic polyneuropathy; G25.81 Restless legs syndrome; G20.A1 Parkinson's disease without dyskinesia, without mention of fluctuations; M19.90 Unspecified osteoarthritis, unspecified site; N40.0 Benign prostatic hyperplasia without lower urinary tract symptoms; Z87.891 Personal history of nicotine dependence; Z96.651 Presence of right artificial knee joint; Z79.82 Long term (current) use of aspirin; Z79.84 Long term (current) use of oral hypoglycemic drugs; Z79.85 Long-term (current) use of injectable non-insulin antidiabetic drugs; Z79.899 Other long term (current) drug therapy
CPT/HCPCS: 96376 ×6; 96361; 96372 ×2; 96374 ×2; 99284; 36415; 97116; 97530; 97162; 97166; 80053 ×3; 85025 ×3; 85027; 85610; 85730; 73560; 73706; G0378 ×6; L1830; S0176 ×6; J1650 ×2; J1171 ×7; Q9967

== ENCOUNTER 2024-07-15 17:48 | Emergency (ER) | payer MEDICARE ==
--- NOTE | 2024-07-15 18:26 | ED ---
Lower Extremity Injury HPI - General Chief Complaint: Extremity Injury, Lower Stated Complaint: R knee injury Time Seen by Provider: 07/15/24 17:52 Source: patient, EMS - History of Present Illness Initial Comments: This patient is a 78-year-old man who is here from [facility]. Patient transferred due to having concerns about infection into right knee or quadriceps muscle. Patient's right leg history includes total knee arthroplasty by Dr. Hager in April which reportedly went without complication. The patient was well until July 06 when he was attempting to change a light bulb and fell. The patient states that his leg was forced laterally. He came to the hospital with pain at the knee and just proximal. Workup, including CT scan, did reveal hematoma in the distal thigh with some probable extravasation of dye. It was felt that the patient had a right quadriceps tear and hematoma. The patient was seen by both orthopedics and vascular and has been treated conservatively with knee immobilizer. The patient was reevaluated by his physician at the long-term care facility today and there was concern about possibility of infection, he has elevated white count at 19.6. No known fever. MD Complaint: other (Right leg pain) -: days(s) Injury: Thigh: Right Type of Injury: hyperflexion Place: home Severity: severe Improves With: immobilization Worsens With: movement Context: fall Associated Symptoms: swelling Treatments Prior to Arrival: other (Knee immobilizer) - Related Data Home Medications Medication Instructions Recorded Confirmed Pantoprazole Sodium 40 mg PO BID 08/27/17 07/06/24 amLODIPine BESYLATE [Norvasc] 2.5 mg PO DAILY 08/27/17 07/06/24 carvediloL [Coreg*] 25 mg PO BID 08/27/17 07/06/24 Carbidopa-Levodopa 25-100 mg 1 tab PO TID 07/20/20 07/06/24 [Sinemet 25-100 mg] DULoxetine HCL [Cymbalta] 30 mg PO DAILY 10/25/22 07/06/24 Gabapentin 300 mg PO BID 10/25/22 07/06/24 Hydroxyurea 500 mg PO QAM 10/25/22 07/06/24 rOPINIRole HCL [Requip] 0.5 mg PO HS 10/25/22 07/06/24 Valsartan/Hydrochlorothiazide 1 tab PO DAILY 09/17/23 07/06/24 [Valsartan-Hctz 320-25 mg Tab] Dapagliflozin Propanediol [Farxiga] 10 mg PO DAILY 10/22/23 07/06/24 Hydroxyurea 500 mg PO MOTUWETH@2100 10/22/23 07/06/24 Multivit-Minerals/FA/Lycopene 1 each PO DAILY 04/14/24 07/06/24 [One-A-Day Men's 50 Plus Tablet] Pravastatin Sodium [Pravachol] 40 mg PO HS 04/14/24 07/06/24 Turmeric Root Extract [Turmeric] 500 mg PO HS 04/14/24 07/06/24 Ferrous Sulfate [Iron (65 MG 325 mg PO DAILY 07/06/24 07/06/24 Elemental)] Semaglutide [Ozempic] 0.5 mg SQ MO 07/06/24 07/06/24 Sennosides/Docusate Sodium 2 tab PO DAILY PRN 07/06/24 07/06/24 [Senna-S 8.6-50 mg Tablet] Tamsulosin [Flomax] 0.4 mg PO DAILY 07/06/24 07/06/24 Zinc Gluconate [Zinc] 50 mg PO DAILY 07/06/24 07/06/24 Previous Rx's Medication Instructions Recorded HYDROcodone/APAP 5-325MG [[place] 1 tab PO Q6HR PRN #30 tab 07/07/24 5-325] Acetaminophen Tab [Tylenol] 650 mg PO Q6HR PRN tab 07/10/24 Lactulose [Cephulac] 20 gm PO BID ml 07/10/24 Enoxaparin [Lovenox] 40 mg SQ DAILY 7 Days each 07/11/24 HYDROcodone/APAP 7.5-325MG [[place] 1 tab PO Q4H PRN 3 Days #18 tab 07/11/24 7.5-325] Allergies Allergy/AdvReac Type Severity Reaction Status Date / Time No Known Allergies Allergy Verified 07/15/24 17:58 Review of Systems ROS Statement: Those systems with pertinent positive or pertinent negative responses have been documented in the HPI. ROS Other: All systems not noted in ROS Statement are negative. Constitutional: Denies: fever, chills, weakness Respiratory: Denies: cough, dyspnea Cardiovascular: Denies: chest pain, palpitations, syncope Gastrointestinal: Denies: abdominal pain, nausea, vomiting Genitourinary: Denies: dysuria Musculoskeletal: Reports: myalgia. Denies: back pain, arthralgia Skin: Denies: rash Neurological: Denies: headache, weakness, numbness Past Medical History Past Medical History: GERD/Reflux, Hearing Disorder / Deafness, Hyperlipidemia, Hypertension, Osteoarthritis (OA) Additional Past Medical History / Comment(s): left orbital fx 6 weeks ago- hospitalized at [facility] for 24 hrs-no brain bleed was noted on CT x2,and bruised ribs.", TREMORS OF HANDS, CYST ON KIDNEY, ELEVATED WBC, some circulation problems, wears compression stockings, "aortic aneurysm being monitored by Dr. Goodman", hearing aid use. pt states he takes farxiga for liver and kidneys he states he was not told he was diabetic .supposed to watch diet History of Any Multi-Drug Resistant Organisms: None Reported Past Surgical History: Back Surgery, Hernia Repair, Joint Replacement, Orthopedic Surgery Additional Past Surgical History / Comment(s): BILATERAL SHOULDER SURGERY, BACK SURGERY WITH TITANIUM CAGE PLACED, COLONOSCOPY. Past Anesthesia/Blood Transfusion Reactions: No Reported Reaction Additional Past Anesthesia/Blood Transfusion Reaction / Comment(s): one of previous injections legs were numb had extended stay in post op Past Psychological History: No Psychological Hx Reported Smoking Status: Former smoker Past Alcohol Use History: Rare Past Drug Use History: None Reported - Past Family History Mother Family Medical History: No Reported History General Exam General appearance: alert, in no apparent distress Head exam: Present: atraumatic, normocephalic Eye exam: Present: normal appearance Neck exam: Present: normal inspection Respiratory exam: Present: normal lung sounds bilaterally. Absent: respiratory distress, wheezes, rales, rhonchi, stridor, accessory muscle use Cardiovascular Exam: Present: regular rate, normal rhythm, normal heart sounds. Absent: systolic murmur, diastolic murmur, rubs, gallop GI/Abdominal exam: Present: soft. Absent: tenderness, guarding, rebound Right Hip exam: Present: normal inspection, full ROM. Absent: tenderness, swelling, abrasion, laceration, ecchymosis, deformity, crepitus, dislocation Upper Leg exam: Present: swelling, abrasion, ecchymosis (From the distal third of the femur down to mid tib-fib there is ecchymosis, swelling). Absent: full ROM, tenderness Knee exam: Present: tenderness, swelling, ecchymosis, effusion. Absent: full ROM, deformity, crepitus, dislocation, erythema, full knee extension Lower Leg exam: Present: swelling, ecchymosis. Absent: tenderness, abrasion, laceration, deformity, crepitus, dislocation, erythema Ankle exam: Present: full ROM, swelling, ecchymosis. Absent: tenderness, abrasion, laceration, deformity, crepitus, dislocation, erythema Foot/Toe exam: Present: normal inspection, full ROM. Absent: tenderness, swelling, abrasion, laceration, ecchymosis, deformity, crepitus, dislocation, erythema, amputation Back exam: Present: normal inspection. Absent: vertebral tenderness Neurological exam: Present: alert. Absent: motor sensory deficit Skin exam: Present: warm, dry, other (Ecchymosis, right leg) Course Vital Signs 07/15/24 07/15/24 07/15/24 18:02 20:28 22:14 Temperature 98.0 F 98.1 F Pulse Rate 83 68 76 Respiratory 20 20 22 Rate Blood Pressure 103/56 92/54 111/62 O2 Sat by Pulse 96 95 94 L Oximetry 07/16/24 01:35 Temperature 98.4 F Pulse Rate 72 Respiratory 20 Rate Blood Pressure 118/70 O2 Sat by Pulse 94 L Oximetry Medical Decision Making - Medical Decision Making The patient is seen and evaluated in the emergency department. When all of the patient's studies were complete, I discussed the case with the transfer team at [facility]. I did discuss case with Dr. Alfaro, who is covering for orthopedics, and is familiar with the patient's history was going to follow in clinic, and will accept transfer to have the patient further evaluated. Was pt. sent in by a medical professional or institution (, PA, FOUR CORNER STAYER MACHINE OPERATOR, urgent care, hospital, or senior living...) When possible be specific @ -[Yes the patient is sent from the senior living at the advice of the physician there. Did you speak to anyone other than the patient for history (EMS, parent, family, police, friend...)? What history was obtained from this source @ -[No] Did you review nursing and triage notes (agree or disagree)? Why? @ -[I reviewed and agree with nursing and triage notes] Were old charts reviewed (outside hosp., previous admission, EMS record, old EKG, old radiological studies, urgent care reports/EKG's, senior living records)? Report findings @ -Yes, old charts were reviewed] Differential Diagnosis (chest pain, altered mental status, abdominal pain women, abdominal pain men, vaginal bleeding, weakness, fever, dyspnea, syncope, headache, dizziness, GI bleed, back pain, seizure, CVA, palpatations, mental health, musculoskeletal)? @ -Differential Musculoskeletal Muscular strain, contusion, ligament sprain, fracture, arthritis, septic arthrit is, bursitis, cellulitis, muscle spasm, nerve compression, DVT, arterial occlusion, herpes zoster, electrolyte abnormality, tumor.... This is not meant to be in all inclusive list EKG interpreted by me (3pts min.). @ -[As above] X-rays interpreted by me (1pt min.). @ -[None done] CT interpreted by me (1pt min.). @ -[None done] U/S interpreted by me (1pt. min.). @ -[None done] What testing was considered but not performed or refused? (CT, X-rays, U/S, labs)? Why? @ -[None] What meds were considered but not given or refused? Why? @ -[None] Did you discuss the management of the patient with other professionals (professionals i.e. , PA, FOUR CORNER STAYER MACHINE OPERATOR, lab, RT, psych nurse, social work administrator, pulp refiner operator, t eacher, tactical debriefer officer, case mgr)? Give summary @ -[See above notes Was smoking cessation discussed for >3mins.? @ -[No] Was critical care preformed (if so, how long)? @ -[No] Were there social determinants of health that impacted care today? How? (Homelessness, low income, unemployed, alcoholism, drug addiction, transportation, low edu. Level, literacy, decrease access to med. care, intermediate, rehab)? @ -[No] Was there de-escalation of care discussed even if they declined (Discuss DNR or withdrawal of care, Hospice)? DNR status @ -[No] What co-morbidities impacted this encounter? (DM, HTN, Smoking, COPD, CAD, Cancer, CVA, ARF, Chemo, Hep., AIDS, mental health diagnosis, sleep apnea, mor bid obesity)? @ -[None] Was patient admitted / discharged? Hospital course, mention meds given and route, prescriptions, significant lab abnormalities, going to OR and other pertinent info. @ -[See above Undiagnosed new problem with uncertain prognosis? @ -[No] Drug Therapy requiring intensive monitoring for toxicity (Heparin, Nitro, Insulin, Cardizem)? @ -[No] Were any procedures done? @ -[No] Diagnosis/symptom? @ -[Acute leg pain Quadriceps femoris rupture Acute leukocytosis Acute, or Chronic, or Acute on Chronic? @ -[Acute Uncomplicated (without systemic symptoms) or Complicated (systemic symptoms)? @ -[Uncomplicated Side effects of treatment? @ -[No] Exacerbation, Progression, or Severe Exacerbation? @ -[No] Poses a threat to life or bodily function? How? (Chest pain, [place], [place], pneumonia, PE, COPD, DKA, ARF, appy, cholecystitis, CVA, Diverticulitis, Homicidal, Suicidal, threat to staff... and all critical care pts) @ -[No] All treatments are based on ideal body weight as in ED triage - Lab Data Result diagrams: 07/15/24 20:29 07/15/24 20:29 Lab Results 07/15/24 07/15/24 07/15/24 Range/Units 20:29 20:29 20:29 WBC 21.4 H (3.8-10.6) k/uL RBC 3.46 L (4.30-5.90) m/uL Hgb 12.1 L (13.0-17.5) gm/dL Hct 36.4 L (39.0-53.0) % MCV 105.5 H D (80.0-100.0) fL MCH 35.0 (25.0-35.0) pg MCHC 33.2 (31.0-37.0) g/dL RDW 14.0 (11.5-15.5) % Plt Count 363 (150-450) k/uL MPV 9.8 Neutrophils % 79 % Lymphocytes % 11 % Monocytes % 7 % Eosinophils % 1 % Basophils % 1 % Neutrophils # 16.9 H (1.3-7.7) k/uL Lymphocytes # 2.2 (1.0-4.8) k/uL Monocytes # 1.5 H (0-1.0) k/uL Eosinophils # 0.3 (0-0.7) k/uL Basophils # 0.1 (0-0.2) k/uL Hypochromasia Slight Macrocytosis Moderate Sodium 136 L (137-145) mmol/L Potassium 4.6 (3.5-5.1) mmol/L Chloride 98 (98-107) mmol/L Carbon Dioxide 27 (22-30) mmol/L Anion Gap 11 mmol/L BUN 26 H (9-20) mg/dL Creatinine 1.01 (0.66-1.25) mg/dL Est GFR (CKD-EPI)AfAm 82 (>60 ml/min/1.73 sqM) Est GFR (CKD-EPI)NonAf 71 (>60 ml/min/1.73 sqM) Glucose 125 H (74-99) mg/dL Plasma Lactic Acid Xavier 1.3 (0.7-2.0) mmol/L Calcium 9.1 (8.4-10.2) mg/dL Total Bilirubin 1.5 H (0.2-1.3) mg/dL AST 40 (17-59) U/L ALT 9 (4-49) U/L Alkaline Phosphatase 103 (38-126) U/L C-Reactive Protein 5.6 H (<1.0) mg/dL Total Protein 7.0 (6.3-8.2) g/dL Albumin 4.0 (3.5-5.0) g/dL - EKG Data -: EKG Interpreted by [facility] EKG shows normal: sinus rhythm (With 1 premature supraventricular complex.), axis (Normal), intervals (MD interval 176 ms, QTc 414 ms, both normal. QRS duration 117 ms, borderline.), QRS complexes (Interventricular conduction delay) Rate: normal (Rate 80 bpm) Interpretation: nonspecific ST-T wave changes, LVH (Voltage criteria for LVH) Disposition Clinical Impression: Hematoma, Quadriceps muscle strain Disposition: OTHER INSTITUTION NOT DEFINED Condition: Fair Is patient prescribed a controlled substance at d/c from ED?: No Referrals: Estuardo Paul MD [Primary Care Provider] - 1-2 days - Out of Hospital Transfer - Req. Specs Out of Hospital Transfer - Requested Specifics: Other Emergency Center
--- NOTE | 2024-07-15 19:40 | XR ---
EXAMINATION TYPE: XR knee complete RT DATE OF EXAM: 07/15/2024 CLINICAL HISTORY: Fall injury with pain TECHNIQUE: Three views of the right knee are obtained. COMPARISON: Right knee x-rays July 05, 2024 FINDINGS: There is no acute fracture/dislocation evident in right knee. Metallic hardware from total right knee prosthesis remains stable and satisfactory in position. There is persistent large suprapa tellar joint effusion and anterior superior soft tissue swelling stable or slightly improved from michael or. IMPRESSION: As above. [facility], , 07/15/2024 7:38 PM
[2024-07-15 20:55] LABS: ALT 9 U/L (4-49); AST 40 U/L (17-59); African American GFR (CKD) 82 (>60 ml/min/1.73 sqM); Alkaline Phosphatase 103 U/L (38-126); Anion Gap 11 mmol/L; Blood Urea Nitrogen 26 mg/dL (9-20); C Reactive Protein 5.6 mg/dL (<1.0); Calcium 9.1 mg/dL (8.4-10.2); Carbon Dioxide 27 mmol/L (22-30); Chloride 98 mmol/L (98-107); Glucose 125 mg/dL (74-99); Non-African American GFR(CKD) 71 (>60 ml/min/1.73 sqM); Potassium 4.6 mmol/L (3.5-5.1); Sodium 136 mmol/L (137-145); Total Bilirubin 1.5 mg/dL (0.2-1.3)
[2024-07-15 20:56] LABS: Basophils # (A) 0.1 k/uL (0-0.2); Basophils % (A) 1 %; Eosinophils # (A) 0.3 k/uL (0-0.7); Eosinophils % (A) 1 %; HCT 36.4 % (39.0-53.0); HGB 12.1 gm/dL (13.0-17.5); Hypochromasia Slight; Lymphocytes # (A) 2.2 k/uL (1.0-4.8); Lymphocytes % (A) 11 %; MCHC 33.2 g/dL (31.0-37.0); Macrocytosis Moderate; Mean Platelet Volume 9.8; Monocytes # (A) 1.5 k/uL (0-1.0); Monocytes % (A) 7 %; Neutrophils # (A) 16.9 k/uL (1.3-7.7); Neutrophils % (A) 79 %; Platelet Count 363 k/uL (150-450); RBC 3.46 m/uL (4.30-5.90); WBC 21.4 k/uL (3.8-10.6)
[2024-07-15 20:59] LABS: MCV 105.5 fL (80.0-100.0)
[2024-07-15] MEDS: MORPHINE SULFATE 4 MG/ML SYRINGE IV STA (22:01)
[2024-07-16 01:42] VITALS: BP 118/70; PULSE 72; RESP 20; TEMP 98.4
== END 2024-07-16 01:35 | disposition other institution (70) ==
LOC: EC 17:48
DX: S76.111A Strain of right quadriceps muscle, fascia and tendon, initial encounter (principal); M79.81 Nontraumatic hematoma of soft tissue; Z87.891 Personal history of nicotine dependence; X58.XXXA Exposure to other specified factors, initial encounter
CPT/HCPCS: 36415; 93005; 80053; 83605; 85025; 86140; 87040; 87077; 87186; 73562; 99285; 96374; J2270

== ENCOUNTER → 2024-08-06 | Outpatient (CLI) | payer MEDICARE ==
[2024-08-06 18:39] LABS: Basophils # (A) 0.07 X 10*3/uL (0.00-0.10); Basophils % (A) 0.8 %; Eosinophils # (A) 0.24 X 10*3/uL (0.04-0.35); Eosinophils % (A) 2.6 %; HCT 41.2 % (39.6-50.0); HGB 12.8 g/dL (13.0-17.0); Lymphocytes # (A) 1.48 X 10*3/uL (0.90-5.00); Lymphocytes % (A) 15.9 %; MCH 33.2 pg (27.0-32.0); MCHC 31.1 g/dL (32.0-37.0); Mean Platelet Volume 11.1 FL (9.5-12.2); Monocytes # (A) 0.64 X 10*3/uL (0.20-1.00); Monocytes % (A) 6.9 %; NRBC Per 100 WBC 0 X 10*3/uL (0.00-0.01); Neutrophils # (A) 6.84 X 10*3/uL (1.80-7.70); Neutrophils % (A) 73.3 %; Platelet Count 321 X 10*3/uL (140-440); RBC 3.85 X 10*6/uL (4.40-5.60); WBC 9.32 X 10*3/uL (4.50-10.00)
[2024-08-06 19:03] LABS: Erythrocyte Sedimentation Rate 65 mm/Hr (0-20)
[2024-08-06 20:13] LABS: ALT 8 U/L (10-49); AST 20 U/L (14-35); Albumin 4.1 g/dL (3.8-4.9); Albumin/Globulin Ratio 1.37 Ratio (1.60-3.17); Alkaline Phosphatase 102 U/L (41-126); BUN/Creat Ratio 18.33 Ratio (12.00-20.00); Blood Urea Nitrogen 16.5 mg/dL (9.0-27.0); Calcium 9.4 mg/dL (8.7-10.3); Carbon Dioxide 27.7 mmol/L (21.6-31.8); Chloride 97 mmol/L (96-109); Glucose 130 mg/dL (70-110); Potassium 4.5 mmol/L (3.5-5.5); Sodium 138 mmol/L (135-145); Total Bilirubin 0.8 mg/dL (0.3-1.2); Total Protein 7.1 g/dL (6.2-8.2)
== END | disposition home or self-care (01) ==
LOC: LABWHC1 14:04
PROVIDERS: ATTEND Internal Medicine
DX: R78.89 Finding of other specified substances, not normally found in blood (principal)
CPT/HCPCS: 36415; 80053; 85025; 85652; 86140; 87040

== ENCOUNTER 2024-09-15 10:03 | Emergency (ER) | payer MEDICARE ==
[2024-09-15 10:20] VITALS: RESP 18
[2024-09-15 10:47] LABS: Basophils # (A) 0.1 k/uL (0-0.2); Basophils % (A) 0 %; Eosinophils # (A) 0.1 k/uL (0-0.7); Eosinophils % (A) 1 %; HCT 36.8 % (39.0-53.0); HGB 11.2 gm/dL (13.0-17.5); Hypochromasia Moderate; Lymphocytes # (A) 1.5 k/uL (1.0-4.8); Lymphocytes % (A) 9 %; MCH 31.9 pg (25.0-35.0); MCHC 30.5 g/dL (31.0-37.0); MCV 104.8 fL (80.0-100.0); Macrocytosis Moderate; Mean Platelet Volume 9.4; Monocytes # (A) 1.1 k/uL (0-1.0); Monocytes % (A) 7 %; Neutrophils # (A) 13.9 k/uL (1.3-7.7); Neutrophils % (A) 82 %; Platelet Count 428 k/uL (150-450); RBC 3.51 m/uL (4.30-5.90); RDW 15.8 % (11.5-15.5); WBC 16.9 k/uL (3.8-10.6)
[2024-09-15 10:53] LABS: ALT 37 U/L (4-49); AST 42 U/L (17-59); African American GFR (CKD) 76 (>60 ml/min/1.73 sqM); Albumin 3.4 g/dL (3.5-5.0); Alkaline Phosphatase 140 U/L (38-126); Anion Gap 12 mmol/L; Blood Urea Nitrogen 41 mg/dL (9-20); Calcium 8.7 mg/dL (8.4-10.2); Carbon Dioxide 27 mmol/L (22-30); Chloride 95 mmol/L (98-107); Glucose 146 mg/dL (74-99); Non-African American GFR(CKD) 66 (>60 ml/min/1.73 sqM); Potassium 4.1 mmol/L (3.5-5.1); Sodium 134 mmol/L (137-145); Total Protein 6.6 g/dL (6.3-8.2)
--- NOTE | 2024-09-15 11:01 | ED ---
Dizziness HPI - General Source: patient, RN notes reviewed Mode of arrival: EMS Limitations: no limitations <Ingrid Markham - Last Filed: 09/15/24 10:58> <Ubaldo Lemon - Last Filed: 09/15/24 15:12> - General Chief Complaint: Dizziness Stated Complaint: Dizziness,weakness Time Seen by Provider: 09/15/24 10:58 - History of Present Illness Initial Comments: Quick [id number] male presenting for dizziness. States symptoms have progressively worsened over the past couple of days, reporting a fall 2 days ago . Denies head injury. States he had a right knee replacement back in April and has had complications including infection and hematoma on the knee that had to be drained at [facility]. He has follow-up appointment with wound care next week. (Ingrid Markham) Dictation was produced using [employer] dictation software. please excuse any grammatical, word or spelling errors. Chief Complaint: 79-year-old male with weakness History of Present Illness: Patient is an 79-year-old male presents emergency department with weakness. 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 He is being cared for by trauma surgeon at [facility]. Apparently had a large hematoma over his right leg that was drained in July. He is dealing with chronic wound. States that he has detach tendons to his right quadriceps and knees. States has been feeling weak. Denies any fever, chills or night sweats. No abdominal pain. No nasal congestion fever chills or night sweats. No c ough. Patient states he feels some ankle pain. He does follow-up with wound care here. The ROS documented in this emergency department record has been reviewed and confirmed by me. Those systems with pertinent positive or negative responses have been documented in the HPI. All other systems are other negative and/or noncontributory. (Ubaldo Lemon) - Related Data Home Medications Medication Instructions Recorded Confirmed Pantoprazole Sodium 40 mg PO BID 08/27/17 07/06/24 amLODIPine BESYLATE [Norvasc] 2.5 mg PO DAILY 08/27/17 07/06/24 carvediloL [Coreg*] 25 mg PO BID 08/27/17 07/06/24 Carbidopa-Levodopa 25-100 mg 1 tab PO TID 07/20/20 07/06/24 [Sinemet 25-100 mg] DULoxetine HCL [Cymbalta] 30 mg PO DAILY 10/25/22 07/06/24 Gabapentin 300 mg PO BID 10/25/22 07/06/24 Hydroxyurea 500 mg PO QAM 10/25/22 07/06/24 rOPINIRole HCL [Requip] 0.5 mg PO HS 10/25/22 07/06/24 Valsartan/Hydrochlorothiazide 1 tab PO DAILY 09/17/23 07/06/24 [Valsartan-Hctz 320-25 mg Tab] Dapagliflozin Propanediol [Farxiga] 10 mg PO DAILY 10/22/23 07/06/24 Hydroxyurea 500 mg PO MOTUWETH@2100 10/22/23 07/06/24 Multivit-Minerals/FA/Lycopene 1 each PO DAILY 04/14/24 07/06/24 [One-A-Day Men's 50 Plus Tablet] Pravastatin Sodium [Pravachol] 40 mg PO HS 04/14/24 07/06/24 Turmeric Root Extract [Turmeric] 500 mg PO HS 04/14/24 07/06/24 Ferrous Sulfate [Iron (65 MG 325 mg PO DAILY 07/06/24 07/06/24 Elemental)] Semaglutide [Ozempic] 0.5 mg SQ MO 07/06/24 07/06/24 Sennosides/Docusate Sodium 2 tab PO DAILY PRN 07/06/24 07/06/24 [Senna-S 8.6-50 mg Tablet] Tamsulosin [Flomax] 0.4 mg PO DAILY 07/06/24 07/06/24 Zinc Gluconate [Zinc] 50 mg PO DAILY 07/06/24 07/06/24 Previous Rx's Medication Instructions Recorded HYDROcodone/APAP 5-325MG [[place] 1 tab PO Q6HR PRN #30 tab 07/07/24 5-325] Acetaminophen Tab [Tylenol] 650 mg PO Q6HR PRN tab 07/10/24 Lactulose [Cephulac] 20 gm PO BID ml 07/10/24 Enoxaparin [Lovenox] 40 mg SQ DAILY 7 Days each 07/11/24 HYDROcodone/APAP 7.5-325MG [[place] 1 tab PO Q4H PRN 3 Days #18 tab 07/11/24 7.5-325] Allergies Allergy/AdvReac Type Severity Reaction Status Date / Time No Known Allergies Allergy Verified 09/15/24 10:20 Review of Systems ROS Other: All systems not noted in ROS Statement are negative. <Ingrid Markham - Last Filed: 09/15/24 10:58> ROS Other: All systems not noted in ROS Statement are negative. <Ubaldo Lemon - Last Filed: 09/15/24 15:12> ROS Statement: Those systems with pertinent positive or pertinent negative responses have been documented in the HPI. Past Medical History Past Medical History: GERD/Reflux, Hearing Disorder / Deafness, Hyperlipidemia, Hypertension, Osteoarthritis (OA) Additional Past Medical History / Comment(s): left orbital fx 6 weeks ago-hosp italized at [facility] for 24 hrs-no brain bleed was noted on CT x2,and bruised ribs.", TREMORS OF HANDS, CYST ON KIDNEY, ELEVATED WBC, some circulation problems, wears compression stockings, "aortic aneurysm being monitored by Dr. Goodman", hearing aid use. pt states he takes farxiga for liver and kidneys he states he was not told he was diabetic .supposed to watch diet History of Any Multi-Drug Resistant Organisms: None Reported Past Surgical History: Back Surgery, Hernia Repair, Joint Replacement, Orthopedic Surgery Additional Past Surgical History / Comment(s): BILATERAL SHOULDER SURGERY, BACK SURGERY WITH TITANIUM CAGE PLACED, COLONOSCOPY. Past Anesthesia/Blood Transfusion Reactions: No Reported Reaction Additional Past Anesthesia/Blood Transfusion Reaction / Comment(s): one of previous injections legs were numb had extended stay in post op Past Psychological History: No Psychological Hx Reported Smoking Status: Former smoker Past Alcohol Use History: Rare Past Drug Use History: None Reported - Past Family History Mother Family Medical History: No Reported History <Ingrid Markham - Last Filed: 09/15/24 10:58> General Exam Limitations: no limitations <Ingrid Markham - Last Filed: 09/15/24 10:58> <Ubaldo Lemon - Last Filed: 09/15/24 15:12> - General Exam Comments Initial Comments: Visual Physical Exam Vital signs reviewed General: Well-appearing, nontoxic, no acute distress. Head: Normocephalic, atraumatic Eyes: PERRLA, EOMI ENT: Airway patent Chest: Nonlabored breathing Skin: No visual rash, normal skin tone Neuro: Alert and oriented 3 Musculoskeletal: No gross abnormalities (Ingrid Markham) PHYSICAL EXAM: General Impression: Alert and oriented x3, not in acute distress HEENT: Normocephalic atraumatic, extra-ocular movements intact, pupils equal and reactive to light bilaterally, mucous membranes moist. Cardiovascular: Heart regular rate and rhythm Chest: Able to complete full sentences, no retractions, no tachypnea Abdomen: abdomen soft, non-tender, non-distended, no organomegaly Musculoskeletal: Pulses present and equal in all extremities, no peripheral edema Motor: no focal deficits noted Neurological: CN II-XII grossly intact, no focal motor or sensory deficits noted Skin: Intact with no visualized rashes Psych: Normal affect and mood Right leg dressing: Clean dry and intact, Right lower extremity. There is a chronic open wound measuring approximately 3 x 3 cm over the right anterior knee. There is some surrounding erythema with draining of purulent fluid. (Ubaldo Lemon) Course Vital Signs 09/15/24 10:15 Temperature 97.7 F Pulse Rate 77 Respiratory 18 Rate Blood Pressure 104/67 O2 Sat by Pulse 96 Oximetry Medical Decision Making - Lab Data Result diagrams: 09/15/24 10:27 09/15/24 10:27 <Ingrid Markham - Last Filed: 09/15/24 10:58> - Lab Data Result diagrams: 09/15/24 10:27 09/15/24 10:27 <Ublado Lemon - Last Filed: 09/15/24 15:12> - Medical Decision Making I completed the quick note portion of this chart signed Ingrid Markham PA-C (Ingrid Markham) Was pt. sent in by a medical professional or institution (Dr. PA, LD TEACHER, urgent care, hospital, or correction...) When possible be specific @ -No Did you speak to anyone other than the patient for history (EMS, parent, family, police, friend...)? What history was obtained from this source @ -No Did you review nursing and triage notes (agree or disagree)? Why? @ -I reviewed and agree with nursing and triage notes Were old charts reviewed (outside hosp., previous admission, EMS record, old EKG, old radiological studies, urgent care reports/EKG's, correction records)? Report findings @ -No old charts were reviewed Differential Diagnosis (chest pain, altered mental status, abdominal pain women, abdominal pain men, vaginal bleeding, musculoskeletal, weakness, fever, dyspnea, syncope, headache, dizziness, GI bleed, back pain, seizure, CVA, palpatations, mental health)? @ -Differential Weakness: Hypoglycemia, shock, sepsis, hyponatremia, anemia, infection, TX, ETOH, adverse medicine reaction, overdose, stroke, this is not meant to be an all-inclusive list. EKG interpreted by me (3pts min.). @ -None done X-rays interpreted by me (1pt min.). @ -None done CT interpreted by me (1pt min.). @ -CT brain shows no acute processes U/S interpreted by me (1pt. min.). @ -None done What testing was considered but not performed or refused? (CT, X-rays, U/S, labs)? Why? @ -None What meds were considered but not given or refused? Why? @ -None Was smoking cessation discussed for >3mins.? @ -No Were there social determinants of health that impacted care today? How? (Homelessness, low income, unemployed, alcoholism, drug addiction, transportation, low edu. Level, literacy, decrease access to med. care, long term, rehab)? @ -No Was there de-escalation of care discussed even if they declined (Discuss DNR or withdrawal of care, Hospice)? DNR status @ -No What co-morbidities impacted this encounter? (DM, HTN, Smoking, COPD, CAD, Cancer, CVA, ARF, Chemo, Hep., AIDS, mental health diagnosis, sleep apnea, morbid obesity)? @ -None Was patient admitted / discharged? Hospital course, mention meds given and route, prescriptions, significant lab abnormalities, going to OR and other pertinent info. @ -79-year-old male with establish care with Dr. Neisha Godoy for chronic right lower extremity wound presents to the ER for generalized weakness. Denies any constitutional symptoms. No focal findings. at the bedside with does his dressing changed concerned that the wound looks infected. It is erythematous with drainage at the bedside. Vital signs stable. Laboratory evaluation obtained. Leukocytosis of 16.9. Rest of labs within acceptable limits. Patient is a diabetic. Started on broad-spectrum antibiotics. Case discussed with Dr. Paul did not feel that patient is a good candidate to be admitted here. Patient will be transferred to [facility] where his surgeon is located. Family agreeable with that plan. Did you discuss the management of the patient with other professionals (professionals i.e. DrGriffin, PA, LD TEACHER, lab, RT, psych nurse, social work instructor, licensed dispensing optician, t eacher, minesweeping officer, renal case manager)? Give summary @ -Case discussed with [facility] transfer team. Accepting physician is Dr. Pierce swelling to accept patient's care for ER to ER transfer Was critical care preformed (if so, how long)? @ -No Undiagnosed new problem with uncertain prognosis? @ -No Drug Therapy requiring intensive monitoring for toxicity (Heparin, Nitro, Insulin, Cardizem)? @ -No Were any procedures done? @ -No Diagnosis/symptom? Acute, or Chronic, or Acute on Chronic? Uncomplicated (without systemic symptoms) or Complicated (systemic symptoms)? @ -Postoperative right lower extremity wound infection Side effects of treatment? @ -No Exacerbation, Progression, or Severe Exacerbation? @ -No Poses a threat to life or bodily function? How? (Chest pain, [place], [place], pneumonia, PE, COPD, DKA, ARF, appy, cholecystitis, CVA, Diverticulitis, Homicidal, Suicidal, threat to staff... and all critical care pts) @ -yes (Ubaldo Lemon) - Lab Data Lab Results 09/15/24 09/15/24 09/15/24 Range/Units 10:27 10:27 10:27 WBC 16.9 H (3.8-10.6) k/uL RBC 3.51 L (4.30-5.90) m/uL Hgb 11.2 L (13.0-17.5) gm/dL Hct 36.8 L (39.0-53.0) % MCV 104.8 H (80.0-100.0) fL MCH 31.9 (25.0-35.0) pg MCHC 30.5 L (31.0-37.0) g/dL RDW 15.8 H (11.5-15.5) % Plt Count 428 (150-450) k/uL MPV 9.4 Neutrophils % 82 % Lymphocytes % 9 % Monocytes % 7 % Eosinophils % 1 % Basophils % 0 % Neutrophils # 13.9 H (1.3-7.7) k/uL Lymphocytes # 1.5 (1.0-4.8) k/uL Monocytes # 1.1 H (0-1.0) k/uL Eosinophils # 0.1 (0-0.7) k/uL Basophils # 0.1 (0-0.2) k/uL Hypochromasia Moderate Macrocytosis Moderate PT 13.0 H (10.0-12.5) sec INR 1.2 H (<1.2) Sodium 134 L (137-145) mmol/L Potassium 4.1 (3.5-5.1) mmol/L Chloride 95 L (98-107) mmol/L Carbon Dioxide 27 (22-30) mmol/L Anion Gap 12 mmol/L BUN 41 H (9-20) mg/dL Creatinine 1.07 (0.66-1.25) mg/dL Est GFR (CKD-EPI)AfAm 76 (>60 ml/min/1.73 sqM) Est GFR (CKD-EPI)NonAf 66 (>60 ml/min/1.73 sqM) Glucose 146 H (74-99) mg/dL Calcium 8.7 (8.4-10.2) mg/dL Total Bilirubin 1.0 (0.2-1.3) mg/dL AST 42 (17-59) U/L ALT 37 (4-49) U/L Alkaline Phosphatase 140 H (38-126) U/L Troponin I (0.000-0.034) ng/mL Total Protein 6.6 (6.3-8.2) g/dL Albumin 3.4 L (3.5-5.0) g/dL Urine Color Urine Appearance (Clear) Urine pH (5.0-8.0) Ur Specific [place] (1.001-1.035) Urine Protein (Negative) Urine Glucose (UA) (Negative) Urine Ketones (Negative) Urine Blood (Negative) Urine Nitrite (Negative) Urine Bilirubin (Negative) Urine Urobilinogen (<2.0) mg/dL Ur Leukocyte Esterase (Negative) Urine RBC (0-5) /hpf Urine WBC (0-5) /hpf Urine Mucus (None) /hpf 03/11/25 03/11/25 Range/Units 10:27 13:37 WBC (3.8-10.6) k/uL RBC (4.30-5.90) m/uL Hgb (13.0-17.5) gm/dL Hct (39.0-53.0) % MCV (80.0-100.0) fL MCH (25.0-35.0) pg MCHC (31.0-37.0) g/dL RDW (11.5-15.5) % Plt Count (150-450) k/uL MPV Neutrophils % % Lymphocytes % % Monocytes % % Eosinophils % % Basophils % % Neutrophils # (1.3-7.7) k/uL Lymphocytes # (1.0-4.8) k/uL Monocytes # (0-1.0) k/uL Eosinophils # (0-0.7) k/uL Basophils # (0-0.2) k/uL Hypochromasia Macrocytosis PT (10.0-12.5) sec INR (<1.2) Sodium (137-145) mmol/L Potassium (3.5-5.1) mmol/L Chloride (98-107) mmol/L Carbon Dioxide (22-30) mmol/L Anion Gap mmol/L BUN (9-20) mg/dL Creatinine (0.66-1.25) mg/dL Est GFR (CKD-EPI)AfAm (>60 ml/min/1.73 sqM) Est GFR (CKD-EPI)NonAf (>60 ml/min/1.73 sqM) Glucose (74-99) mg/dL Calcium (8.4-10.2) mg/dL Total Bilirubin (0.2-1.3) mg/dL AST (17-59) U/L ALT (4-49) U/L Alkaline Phosphatase (38-126) U/L Troponin I <0.012 (0.000-0.034) ng/mL Total Protein (6.3-8.2) g/dL Albumin (3.5-5.0) g/dL Urine Color Yellow Urine Appearance Clear (Clear) Urine pH 5.0 (5.0-8.0) Ur Specific [place] 1.016 (1.001-1.035) Urine Protein 1+ H (Negative) Urine Glucose (UA) 4+ H (Negative) Urine Ketones Negative (Negative) Urine Blood Trace H (Negative) Urine Nitrite Negative (Negative) Urine Bilirubin Negative (Negative) Urine Urobilinogen <2.0 (<2.0) mg/dL Ur Leukocyte Esterase Negative (Negative) Urine RBC 1 (0-5) /hpf Urine WBC 2 (0-5) /hpf Urine Mucus Rare H (None) /hpf Disposition <Ingrid Markham - Last Filed: 09/15/24 10:58> Time of Disposition: 14:59 - Out of Hospital Transfer - Req. Specs Out of Hospital Transfer - Requested Specifics: Other Emergency Center ([facility]) <Ubaldo Lemon - Last Filed: 09/15/24 15:12> Clinical Impression: Wound infection Disposition: OTHER INSTITUTION NOT DEFINED Condition: Fair Referrals: Estuardo Paul MD [Primary Care Provider] - 1-2 days
[2024-09-15 11:06] LABS: INR 1.2 (<1.2)
--- NOTE | 2024-09-15 11:34 | CT ---
EXAMINATION TYPE: CT brain wo con DATE OF EXAM: 09/15/2024 11:26 AM COMPARISON: None. CLINICAL INDICATION: Male, 79 years old with history of Dizziness, dizziness TECHNIQUE: Brain: Axial CT images of the brain were obtained with coronal and sagittal reformats created and rev iewed. Contrast used: None. Oral contrast used: None. CT DLP: 1128.4 mGycm, Automated exposure control for dose reduction was used. FINDINGS: Brain: Extra-axial spaces: No abnormal extra-axial fluid collections. Ventricular system: Within normal limits Cerebral parenchyma: Cerebral atrophy. No acute intraparenchymal hemorrhage or mass effect. The barreto -white junction is well differentiated. Scattered hypoattenuating areas are seen within the white mat ter. Cerebellum: Unremarkable. Mass effect: No evidence of midline shift. Intracranial vasculature: unremarkable Soft tissues: Normal. Calvarium/osseous structures: No depressed skull fracture. Paranasal sinuses and mastoid air cells: Mild scattered paranasal sinus disease. Visualized orbits: Orbital contents are intact. IMPRESSION: 1. No acute intracranial process. 2. Nonspecific white matter changes, likely secondary to chronic small vessel ischemic disease. [facility], , 09/15/2024 11:31 AM
[2024-09-15] MEDS ORDERED: VANCOMYCIN IV PER PHARMACY 1 EACH MISC MISCELLANE PRN (13:40)
[2024-09-15 13:44] LABS: Appearance,Urine Clear (Clear); Bilirubin,Urine Negative (Negative); Blood,Urine Trace (Negative); Color,Urine Yellow; Glucose,Urine (UA) 4+ (Negative); Ketones,Urine Negative (Negative); Leukocyte Esterase,Urine Negative (Negative); Mucus,Urine Rare /hpf; Nitrite,Urine Negative (Negative); Protein,Urine 1+ (Negative); RBC,Urine 1 /hpf (0-5); Specific Gravity,Urine 1.016 (1.001-1.035); Urobilinogen,Urine <2.0 mg/dL (<2.0); WBC,Urine 2 /hpf (0-5)
[2024-09-15] MEDS: VANCOMYCIN 1,500 MG in SODIUM CHLORIDE 0.9% 500 ML 500 ML IVPB STA (15:13)
[2024-09-15] MEDS: PIPERACILLIN-TAZOBACTAM 3.375 GM in SODIUM CHLORIDE 0.9% 100 ML IVPB SCH (15:37)
[2024-09-15] MEDS: HYDROcodone/APAP 7.5-325MG 1 EACH TAB PO ONE (16:38)
[2024-09-15 16:42] VITALS: BP 115/72; PULSE 69; TEMP 98
[2024-09-15 19:54] LABS: Erythrocyte Sedimentation Rate >130 mm/Hr (0-20)
[2024-09-16] MEDS ORDERED: VANCOMYCIN 1,500 MG in SODIUM CHLORIDE 0.9% 500 ML 500 ML IVPB SCH (09:00)
== END 2024-09-15 16:42 | disposition other institution (70) ==
LOC: EC 10:03
DX: L03.115 Cellulitis of right lower limb (principal); Z87.891 Personal history of nicotine dependence
CPT/HCPCS: 36415; 93005; 80053; 85652; 84484; 85025; 85610; 81001; 87040; 70450; 99285; 96365; 96368; J2543; J3370